=== PATIENT | male | born 1935 | race Caucasian/White ===

== ENCOUNTER → 2023-12-18 11:45 | Outpatient (REF) | payer MEDICARE, SELFPAY | LOC: ANHLAB 11:45 | PROVIDERS: PCP Internal Medicine; Visit Provider Plastic Surgery | DX: L82.1 Other seborrheic keratosis (principal) | CPT/HCPCS: 88305 ==

== ENCOUNTER 2024-06-23 13:43 | Inpatient (IN) | payer MEDICARE, SELFPAY ==
[2024-06-23] VITALS (11 sets, daily range): BP systolic 128–155; BP diastolic 61–72; PULSE 81–109; RESP 16–41; TEMP 36.2–36.6; O2SAT 92–99; BMI 41.5
--- NOTE | ~2024-06-23 | CT_ITS ---
EXAMINATION: CTA chest PE protocol DATE: 06/23/2024 16:24 INDICATION: Shortness of breath TECHNIQUE: Computed tomography (CT) pulmonary angiogram of the chest was performed with 100 mL Omnipa que-350 intravenous contrast. Additional 3D reconstructions utilizing coronal maximum intensity proje ction (MIP) were performed. Automated exposure control and iterative reconstruction technique were em ployed. The dose-length product was 996.00 mGy-cm. COMPARISON: None FINDINGS: No pulmonary embolism. Sensitivity decreased in the smaller subsegmental pulmonary arteries at the bi lateral lung bases due to moderate basilar respiratory motion artifact. No pneumonia, pulmonary edema , pleural effusion or pneumothorax. Heart size is normal. After squatting coronary artery calcific lo cation. Aortic valve repair. Thoracic aorta is normal in caliber with no dissection. No pathologicall y enlarged thoracic lymphadenopathy. Calcite gallstones at the dependent neck of the normal-appearing gallbladder. 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 IMPRESSION: 1. No pulmonary embolism or other acute cardiopulmonary disease. Sensitivity decreased in the subsegm ental pulmonary arteries at the bilateral lung bases due to respiratory motion. 2. Cholelithiasis. Reviewed, dictated and finalized at location A. IMPRESSION: 1. No pulmonary embolism or other acute cardiopulmonary disease. Sensitivity de creased in the subsegmental pulmonary arteries at the bilateral lung bases due to respiratory motion. 2. Cholelithiasis.
--- NOTE | ~2024-06-23 | XR_ITS ---
EXAMINATION: XR chest 1V portable DATE: 06/23/2024 14:20 INDICATION: Shortness of breath TECHNIQUE: frontal view of the chest was obtained. COMPARISON: None FINDINGS: The lungs are clear with no focal airspace opacities, pulmonary edema, pleural effusion or pneumothor ax. The cardiomediastinal silhouette is normal. IMPRESSION: 1. No acute cardiopulmonary disease. Reviewed, dictated and finalized at location A.
--- NOTE | ~2024-06-23 | NM_ITS ---
EXAMINATION: NM guilherme stress w perfusion DATE: 06/25/2024 09:58 INDICATION: Shortness of breath TECHNIQUE: Rest images were obtained following intravenous administration of 9.8 mCi Tc99m tetrofosmi n (Myoview). The patient was infused intravenously with Lexiscan (Regadenoson). Then, 32.3 mCi Tc99m tetrofosmin (Myoview) was administered intravenously, and stress images were obtained. Data was recon structed into short axis and horizontal and vertical long axis SPECT images. Gated SPECT images were also obtained. COMPARISON: None. FINDINGS: There is no definite reversible or fixed perfusion abnormality to suggest ischemia or infar ction. There is normal left ventricular chamber size, wall motion and ejection fraction. Left ventr icular ejection fraction measures 66%. IMPRESSION: 1. Normal myocardial perfusion at during stress. 2. Left ventricular ejection fraction measuring 66%. Reviewed, dictated and finalized at location A.
--- OUTSIDE RECORDS SUMMARY | 2024-06-23 13:48 | XMS_ITS | Data Portability ---
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 Role Phone SHAWNEE GREEN Referring Provider [phone] Assessment Encounter Date Assessment Date Assessment LastModified by Organization Details LastModified Time 05/15/2022 05/15/2022 Will continue with current therapy all questions have been answered diagnosis in assessment and plan been discussed follow-up in 4 months [email or web address] Not available 06/04/2022 21:31:05 09/18/2022 09/18/2022 Blood work ordered diagnosis in assessment plan been discussed and all questions have been answered he will follow-up with me in 4 months Not available 10/08/2022 11:29:23 10/03/2022 10/03/2022 Patient returns status post bilateral total knee. He is 23 years out on the right 8 on the left he has got good motion and very little pain and no very little way of symptoms he walks with a cane because of his balance. He is morbidly obese which is not helping. Basically his knees look great he is going to last him quite some time yet if he has any changes or problems he can call. I will see him back every year to for x-rays discussed. susie Not available 10/03/2022 11:12:09 11/23/2022 11/23/2022 Titration of diuretics discussed weight daily watch salt there has been some indiscretions there follow-up with me in 6 weeks discussed with him and his today records from hospital reviewed [email or web address] Not available 11/23/2022 21:27:22 01/15/2023 01/15/2023 Will continue current therapy diagnosis in the assessment and plan have been discussed all questions been answered he has been recommended to get up-to-date and stay up-to-date on flu COVID and RSV vaccinations follow-up 4 months [place] [id number] Not available 02/05/2023 19:52:44 Plan of Treatment Reminders Order Date Submit Date Provider Last Modified By Organization Details Last Modified Time Details Appointments None recorded . Lab glycohem oglobin, total, blood 023 09/19/19 23 [facility] (Lab), [address] [place], [address], 3 16:08:02 lipid panel, serum 023 09/19/19 [facility] (Lab), [address] [place], [address], 3 14:04:22 CMP, serum or plasma 023 09/19/19 23 [facility] (Lab), [address] [place], [address], 3 14:04:27 CBC w/ auto diff 023 09/19/[address] (Lab), [address] [place], [address], 3 13:55:31 Referral None recorded . Procedures None recorded . Surgeries None recorded . Imaging XR, knee 023 10/04/19 [email or web address] [facility], [address] [facility], [place], [address], 3 11:30:33 Medication Orders None recorded . Patient TargetsNo targets recorded. Patient InstructionsNo instructions recorded. Reason for Referral None Reported. Results Created Date Observation Date Name Description Value Unit Range Abnormal Flag Note LastModifiedBy Organization Detail LastModifiedTime 09/19/19 23 09/18/2022 CBC/C OMPLE TE BLD COUNT W/DIF F white blood cells 5.0 x10'3 /uL 4.2-10 .8 Not Available [facility] (Lab) [address] [place], [address], 09/18/2022 13:27:27 09/19/19 23 09/18/2022 CBC/C OMPLE TE BLD COUNT W/DIF F red blood cells 4.61 x10'6 /uL 4.10-5 .80 Not Available [facility] (Lab) [address] [place], [address], 09/18/2022 13:27:27 09/19/19 23 09/18/2022 CBC/C OMPLE TE BLD COUNT W/DIF F hemoglobin 13.2 g/dL 13.2-1 7.0 Not Available [facility] (Lab) [address] [place], [address], 09/18/2022 13:27:27 09/19/19 23 09/18/2022 CBC/C OMPLE TE BLD COUNT W/DIF F hematocrit 38.7 % 39.3-5 0.0 low Not Available [facility] (Lab) [address] [place], [address], 09/18/2022 13:27:27 09/19/19 23 09/18/2022 CBC/C OMPLE TE BLD COUNT W/DIF F mean red cell volume 83.9 fL 80.0-9 7.0 Not Available [facility] (Lab) [address] [place], [address], 09/18/2022 13:27:27 09/19/19 23 09/18/2022 CBC/C OMPLE TE BLD COUNT W/DIF F mean red cell hemoglobin 28.6 pg 27.0-3 3.0 Not Available [facility] (Lab) [address] [place], [address], 09/18/2022 13:27:27 09/19/19 23 09/18/2022 CBC/C OMPLE TE BLD COUNT W/DIF F mean RBC HGB concentratio n 34.1 g/dL 31.0-3 6.0 Not Available [facility] (Lab) [address] [place], [address], 09/18/2022 13:27:27 09/19/19 23 09/18/2022 CBC/C OMPLE TE BLD COUNT W/DIF F red cell distribution width 14.0 % 11.8-1 5.5 Not Available [facility] (Lab) [address] [place], [address], 09/18/2022 13:27:27 09/19/19 23 09/18/2022 CBC/C OMPLE TE BLD COUNT W/DIF F platelets 151 x10'3 /uL 150-40 0 Not Available [facility] (Lab) [address] [place], [address], 09/18/2022 13:27:27 09/19/19 23 09/18/2022 CBC/C OMPLE TE BLD COUNT W/DIF F mean platelet volume 10.9 fL 9.0-12 .4 Not Available [facility] (Lab) [address] [place], [address], 09/18/2022 13:27:27 09/19/19 23 09/18/2022 CBC/C OMPLE TE BLD COUNT W/DIF F neutrophils 56.3 % 39.0-7 2.0 Not Available [facility] (Lab) [address] [place], [address], 09/18/2022 13:27:27 09/19/19 23 09/18/2022 CBC/C OMPLE TE BLD COUNT W/DIF F lymphocytes 31.9 % 16.0-4 7.0 Not Available [facility] (Lab) [address] [place], [address], 09/18/2022 13:27:27 0809/18/2022 CBC/C OMPLE TE BLD COUNT W/DIF F monocytes 8.6 % 5.0-12 .0 Not Available [facility] (Lab) [address] [place], [address], 09/18/2022 13:27:27 09/19/19 23 09/18/2022 CBC/C OMPLE TE BLD COUNT W/DIF F eosinophils 2.2 % 1.0-7. 0 Not Available [facility] (Lab) [address] [place], [address], 09/18/2022 13:27:27 09/19/1909/18/2022 CBC/C OMPLE TE BLD COUNT W/DIF F basophils 0.4 % 0.0-2. 0 Not Available [facility] (Lab) [address] [place], [address], 09/18/2022 13:27:27 09/19/1909/18/2022 CBC/C OMPLE TE BLD COUNT W/DIF F immature granulocytes 0.6 % 0.00-0 .50 high Not Available [facility] (Lab) [address] [place], [address], 09/18/2022 13:27:27 09/19/19 23 09/18/2022 CBC/C OMPLE TE BLD COUNT W/DIF F neutrophils, absolute count 2.82 x10'3 /uL 1.5-8. 0 Not Available [facility] (Lab) [address] [place], [address], 09/18/2022 13:27:27 09/19/1909/18/2022 CBC/C OMPLE TE BLD COUNT W/DIF F lymphocytes, absolute count 1.60 x10'3 /uL 1.07-3 .43 Not Available [facility] (Lab) [address] [place], [address], 09/18/2022 13:27:27 08/14/20 23 09/18/2022 CBC/C OMPLE TE BLD COUNT W/DIF F monocytes, absolute count 0.43 x10'3 /uL 0.29-0 .99 Not Available [facility] (Lab) [address] [place], [address], 09/18/2022 13:27:27 09/19/19 23 09/18/2022 CBC/C OMPLE TE BLD COUNT W/DIF F eosinophils, absolute count 0.11 x10'3 /uL 0.02-0 .53 Not Available [facility] (Lab) [address] [place], [address], 09/18/2022 13:27:27 09/19/19 23 09/18/2022 CBC/C OMPLE TE BLD COUNT W/DIF F basophils, absolute count 0.02 x10'3 /uL 0.01-0 .08 Not Available [facility] (Lab) [address] [place], [address], 09/18/2022 13:27:27 09/19/19 23 09/18/2022 CBC/C OMPLE TE BLD COUNT W/DIF F immature granulocytes ,absolute 0.03 x10'3 /uL 0.00-0 .05 Not Available [facility] (Lab) [address] [place], [address], 09/18/2022 13:27:27 09/19/19 23 09/18/2022 CBC/C OMPLE TE BLD COUNT W/DIF F nucleated red blood cells 0.0 % -0 Not Available [facility] (Lab) [address] [place], [address], 09/18/2022 13:27:27 09/19/19 23 09/18/2022 CBC/C OMPLE TE BLD COUNT W/DIF F NRBC# 0.00 x10'3 /uL Not Available [facility] (Lab) [address] [place], [address], 09/18/2022 13:27:27 09/19/19 23 09/18/2022 LIPID PANEL cholesterol 158 mg/dL 140-19 9 NIH CYNTHIA NSUS RECOM MENDA TION FOR AJAY STERO L: ADULT CHILD LOW RISK: <200 <170 BORDE RLINE : <200- 239 ----- HIGH RISK: >240 >200 Not Available [facility] (Lab) [address] [place], [address], 09/18/2022 14:04:22 09/19/19 23 09/18/2022 LIPID PANEL triglyceride s 230 mg/dL 0-150 high NIH CYNTHIA NSUS REPOR T RECOM MENDA TION FOR TRIGL YCERI TALON: ADULT CHILD LOW RISK: <150 ----- BODER LINE: 150-1 99 ----- HIGH RISK: >200 ----- Not Available [facility] (Lab) [address] [place], [address], 09/18/2022 14:04:22 09/19/19 23 09/18/2022 LIPID PANEL HDL cholesterol 30 mg/dL 40- low Not Available [facility] (Lab) [address] [place], [address], 09/18/2022 14:04:22 09/19/19 23 09/18/2022 LIPID PANEL LDL cholesterol, calculated 82 mg/dL 0-130 NIH CYNTHIA NSUS REPOR T RECOM MENDA TIONS FOR LDL: ADULT CHILD LOW RISK <130 <110 (OPTI MAL LDL) <100 ----- BORDE RLINE : 130-1 59 ----- HIGH RISK: >160 >130 A TRIGL YCERI DE RESUL T >400 INVAL IDATE S THE CALCU LATIO N FOR LDL FRACT IONAT ION - THE LDL RESUL T WILL NOT BE REPOR CEDRIC. Not Available [facility] (Lab) [address] [place], [address], 09/18/2022 14:04:22 09/19/19 23 09/18/2022 COMPR EHENS ANNIKA METAB OLIC PANEL sodium 138 mmol/ L 137-14 5 Not Available [facility] (Lab) [address] [place], [address], 09/18/2022 14:04:27 09/19/19 23 09/18/2022 COMPR EHENS ANNIKA METAB OLIC PANEL potassium 3.7 mmol/ L 3.5-5. 1 Not Available [facility] (Lab) [address] [place], [address], 09/18/2022 14:04:27 09/19/19 23 09/18/2022 COMPR EHENS ANNIKA METAB OLIC PANEL chloride 104 mmol/ L 98-107 Not Available [facility] (Lab) [address] [place], [address], 09/18/2022 14:04:27 09/19/19 23 09/18/2022 COMPR EHENS ANNIKA METAB OLIC PANEL carbon dioxide 27 mmol/ L 22-30 Not Available [facility] (Lab) [address] [place], [address], 09/18/2022 14:04:27 09/19/19 23 09/18/2022 COMPR EHENS ANNIKA METAB OLIC PANEL anion gap 10.7 mmol/ L 14-22 low Not Available [facility] (Lab) [address] [place], [address], 09/18/2022 14:04:27 09/19/19 23 09/18/2022 COMPR EHENS ANNIKA METAB OLIC PANEL glucose 131 mg/dL 70-99 high Not Available [facility] (Lab) [address] [place], [address], 09/18/2022 14:04:27 09/19/19 23 09/18/2022 COMPR EHENS ANNIKA METAB OLIC PANEL BUN 10 mg/dL 8-19 Not Available [facility] (Lab) [address] [place], [address], 09/18/2022 14:04:27 09/19/19 23 09/18/2022 COMPR EHENS ANNIKA METAB OLIC PANEL creatinine 0.89 mg/dL 0.66-1 .25 Not Available [facility] (Lab) [address] [place], [address], 09/18/2022 14:04:27 09/19/19 23 09/18/2022 COMPR EHENS ANNIKA METAB OLIC PANEL GFR >60 Refer ence Range : [place] ge GFR Healt hy Adult : >60 mL/mi n/1.7 3 m2 Chron ic Kidne y Disea se: 15-60 mL/mi n/1.7 3 m2 Kidne y Failu re: <15/m L/min /1.73 m2 www.n iddk. nih.g ov The MDRD study equat ion has not been valid ated in child geo <18 years of age; pregn ant women ; the elder ly >85 years of age; or in some racia l or ethni c subgr oups, such as Hisroland nics. Outsi de the valid ated maria ines eters , estim ated GFR is less accur ate, requi ring clini polo judgm ent on a case- by-ca se basis . Clini polo inter preta tion for other races and ages must be made by the clini helene. The MDRD study equat ion has not been valid ated for the evalu ation of serum creat inine relat ed to nutri darius l statu s or medic ation usage . For perso ns <18 years of age, a pedia tric GFR calcu lator is avail able on the F websi te: https ://oj w.rakan lacy.o rg/pr ofess ional s/kdo qi/gf r_cal culat or Not Available [facility] (Lab) [address] [place], [address], 09/18/2022 14:04:27 09/19/19 23 09/18/2022 COMPR EHENS ANNIKA METAB OLIC PANEL alkaline phosphatase 49 U/L 38-126 Not Available [facility] (Lab) [address] [place], [address], 09/18/2022 14:04:27 09/19/19 23 09/18/2022 COMPR EHENS ANNIKA METAB OLIC PANEL alanine aminotransfe rase 37 U/L 0-50 Not Available [facility] (Lab) [address] [place], [address], 09/18/2022 14:04:27 09/19/19 23 09/18/2022 COMPR EHENS ANNIKA METAB OLIC PANEL aspartate aminotransfe rase 35 U/L 15-46 Not Available [facility] (Lab) [address] [place], [address], 09/18/2022 14:04:27 09/19/19 23 09/18/2022 COMPR EHENS ANNIKA METAB OLIC PANEL bilirubin, total 0.60 mg/dL 0.20-1 .30 Not Available [facility] (Lab) [address] [place], [address], 09/18/2022 14:04:27 09/19/19 23 09/18/2022 COMPR EHENS ANNIKA METAB OLIC PANEL calcium 8.5 mg/dL 8.4-10 .2 Not Available [facility] (Lab) [address] [place], [address], 09/18/2022 14:04:27 09/19/19 23 09/18/2022 COMPR EHENS ANNIKA METAB OLIC PANEL total protein 6.8 g/dL 6.3-8. 2 Not Available [facility] (Lab) [address] [place], [address], 09/18/2022 14:04:27 09/19/19 23 09/18/2022 COMPR EHENS ANNIKA METAB OLIC PANEL albumin 4.1 g/dL 3.0-4. 4 Not Available [facility] (Lab) [address] [place], [address], 09/18/2022 14:04:27 09/19/19 23 09/18/2022 COMPR EHENS ANNIKA METAB OLIC PANEL globulin 2.7 g/dL 2.6-4. 2 Not Available [facility] (Lab) [address] [place], [address], 09/18/2022 14:04:27 09/19/19 23 09/18/2022 COMPR EHENS ANNIKA METAB OLIC PANEL A/G ratio 1.5 ratio 1.0-2. 0 Not Available [facility] (Lab) [address] [place], [address], 09/18/2022 14:04:27 09/19/19 23 09/18/2022 HEMOG LOBIN A1C HA1C 6.5 % 4.0-6. 0 high Diabe berhane Scree cass Crite oksana: <5.7% Consi stent with absen ce of diabe berhane 5.7-6 .4% Consi stent with incre ased risk for diabe berhane (pred iabet es) >OR=6 .5% Consi stent with diabe berhane REFER ENCE: Diabe berhane Care 2016, 39(Ceja ppl.1 ):s13 -s22 Not Available [facility] (Lab) [address] [place], [address], 09/18/2022 16:08:02 09/02/19 23 09/01/2022 US, echoc ardio gram No observ ation record ed. [email or web address] [facility] [address], [place], [address], 09/19/2022 16:35:35 10/04/19 23 XR, knee No observ ation record ed. [email or web address] [facility] [address], [place], [address], 10/03/2022 11:12:22 Result Notes None recorded. Problems Name Problem SNOMED Code Status Onset Date Resolution Date Notes Provider Name and Address Organization Details Recorded Time Pain of bilatera l knee joints 49402584741 4104 Active 2022 WILLIE Kaur, [facility] Conjecta 3 10:59:12 Heart failure with normal ejection fraction 602636332 Active 2022 Shawnee Green MD [address] [place] [address], [facility] [address], [place], [address] , [facility] Conjecta 3 21:26:49 Edema of lower extremit y 006065330 Active Not Available [facility] 3 08:36:15 History of right total knee replacem ent 78168094449 Active 2020 Not Available [facility] 3 08:36:15 History of left total knee replacem ent 95977401292 Active 2020 Not Available [facility] 3 08:36:15 Chronic obstruct annika pulmonar y disease 69879061 Active Not Available [facility] 3 08:36:15 Standard chest X-ray abnormal 941459071 Active 2021 Not Available [facility] 3 08:36:15 Angiodys plasia of colon 409563267 Active 2019 colonosc opy 2018 Not Available [facility] 3 08:36:15 Localize d, 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 015667913 Active Not Available [facility] 3 08:36:15 Morbid obesity 136088459 Active 2020 Not Available [facility] 3 08:36:15 Osteoart hritis of knee 516732046 Active Not Available [facility] 3 08:36:15 Dyspnea 823548660 Active Not Available [facility] 3 08:36:16 Low back pain 977375238 Active Not Available [facility] 3 08:36:16 Knee pain Active Not Available [facility] 3 08:36:16 Type 2 diabetes mellitus without complica tion 625245730 Active 2021 Not Available [facility] 3 08:36:16 Trochant naomi bursitis of left hip 25894284372 9103 Active 2022 Not Available [facility] 3 08:36:16 Osteoart hritis 925148295 Active Not Available [facility] 3 08:36:16 Obesity 518883432 Active Not Available [facility] 3 08:36:16 Coronary atherosc lerosis 302597048 Active Not Available [facility] 3 08:36:16 Cough 97111522 Active 2021 Not Available [facility] 3 08:36:16 Coronary arterios clerosis 61658072 Active 2020 Not Available [facility] 3 08:36:16 Hyperlip idemia 34226277 Active Not Available [facility] 3 08:36:16 Occult blood detected in feces 67162469 Active Not Available [facility] 3 08:36:16 Essentia l hyperten janeth 06876059 Active Not Available [facility] 3 08:36:16 Supraven tricular tachycar ju 0724799 Active history of Not Available [facility] 3 08:36:16 Sleep apnea 77198320 Completed Not Available [facility] 3 04:50:02 Hypersom angus 62244216 Active Not Available [facility] 3 08:36:16 Obstruct annika sleep apnea syndrome 47938863 Active Not Available [facility] 3 08:36:16 Aortic valve disorder 1808338 Active Not Available [facility] 3 08:36:16 Skin lesion 74100820 Active Not Available [facility] 3 08:36:16 Notes:eye exam November 2016 Problem Notes None recorded. Procedures Surgical History Date Name Laterality Status Provider Name and Address Organization Details Recorded Time 04/21/19 18 Colonoscopy completed Not Available [facility] 04/05/2022 04:42:13 01/21/20 15 Total knee arthroplasty completed Not Available [facility] 04/05/2022 04:42:13 Total knee arthroplasty completed Not Available [facility] 04/05/2022 04:42:13 Cataract Surgery completed Not Available [facility] 04/05/2022 04:42:13 Colonoscopy completed Not Available [facility] 04/05/2022 04:42:13 Cardiac Stent Placement completed Not Available [facility] 04/05/2022 04:42:13 Cardiovascular Surgery completed Not Available [facility] 04/05/2022 04:42:13 Imaging Results Imaging Date Name Status LastModified by Organization Details LastModified Time 09/01/2022 US, echocardiogram completed [email or web address] [facility] [address], [place], [address], 09/19/2022 16:35:35 10/03/2022 XR, knee completed [email or web address] [facility] [address], [place], [address], 10/03/2022 11:12:22 Procedure Notes None recorded. Medical Equipment None Reported. Allergies No known drug allergies Medications Name Sig Start Date Stop Date Status Note LastModified by Organization Details LastModified Time verapamil ER (SR) 120 mg tablet,ex tended release TAKE 1 TABLET BY MOUTH NIGHTLY active Not Available Not Available No t Available penicilli n V potassium 250 mg tablet active Not Available Not Available Not Available amoxicill in 500 mg capsule 06/19 completed Not Available Not Available Not Available furosemid e 40 mg tablet TAKE 1 TABLET BY MOUTH EVERY DAY active Not Available Not Available No t Available carvedilo l 25 mg tablet Take 1 tablet twice a day by oral route for 30 days. 03/03 completed Not Available Not Available Not Available carvedilo l 6.25 mg tablet Take 1 tablet twice a day by oral route for 90 days. 03/03 completed Not Available Not Available Not Available prednison e 10 mg tablet TAKE 1 TABLET BY MOUTH 3 TIMES A DAY X 3 DAYS, 1 TWICE DAILY X 2 DAYS, 1 TAB DAILY X 1 DAY 05/15 completed Not Available Not Available Not Available doxycycli ne hyclate 100 mg capsule Take 1 capsule twice a day by oral route for 10 days. active Not Available Not Available No t Available carvedilo l 12.5 mg tablet TAKE 1 TABLET BY MOUTH TWICE A DAY active Not Available Not Available No t Available atorvasta tin 10 mg tablet TAKE 1 TABLET BY MOUTH EVERY DAY 2023 active Not Available Not Available Not Avai lable azithromy rosalba 250 mg tablet TAKE 2 TABLETS BY MOUTH TODAY, THEN TAKE 1 TABLET DAILY FOR 4 DAYS DIRECTED active Not Available Not Available No t Available aspirin 325 mg tablet Take 1 tablet every day by oral route. 03/30 completed Not Available Not Available Not Available tizanidin e 4 mg tablet Take 1 tablet every day by oral route at bedtime. active Not Available Not Available No t Available Claritin 10 mg tablet Take 1 tablet every day by oral route. 2014 active OTC Not Available Not Available Not Avai lable isosorbid e mononitra te ER 30 mg tablet,ex tended release 24 hr 07/18 completed Not Available Not Available Not Available acetamino phen 300 mg-codein e 30 mg tablet 01/16 completed Not Available Not Available Not Available clopidogr el 75 mg tablet Take 1 tablet every day by oral route. 04/06 completed Not Available Not Available Not Available ciproflox acin 500 mg tablet active Not Available Not Available No t Available aspirin 81 mg tablet,de layed release TAKE 1 TABLET BY MOUTH EVERY DAY active Not Available Not Available No t Available prednison e 10 mg tablets in a dose pack Take 1 tab by mouth, 3 times a day for 3 daysTake 1 tab by mouth 2 times a day for 2 daysTake 1 tab by mouth once a day for 1 day 05/15 completed Not Available Not Available Not Available Kenalog 10 mg/mL suspensio n for injection In office injectio n administ ered by the provider 05/15 completed NDC: [id number] Not Available Not Available Not Available hydrocodo ne 7.5 mg-acetam inophen 325 mg tablet 04/15 completed Not Available Not Available Not Available cephalexi n 500 mg capsule active Not Available Not Available Not Available doxazosin 4 mg tablet TAKE 1 TABLET BY MOUTH EVERY DAY active Not Available Not Available No t Available verapamil ER (SR) 240 mg tablet,ex tended release TAKE ONE TABLET BY MOUTH ONE TIME DAILY 12/27 completed Not Available Not Available Not Available etodolac 400 mg tablet Take 1 tablet twice a day by oral route. active Not Available Not Available No t Available diclofena c sodium 50 mg tablet,de layed release 04/15 completed Not Available Not Available Not Available ergocalci ferol (vitamin D2) 1,250 mcg (50,000 unit) capsule TAKE 1 CAPSULE BY MOUTH ONCE WEEKLY active Not Available Not Available No t Available methylpre dnisolone 4 mg tablets in a dose pack TAKE 6 TABLETS ON DAY 1 DIRECTED ON PACKAGE AND DECREASE BY 1 TAB EACH DAY FOR A TOTAL OF 6 DAYS active Not Available Not Available No t Available finasteri de 5 mg tablet TAKE 1 TABLET BY MOUTH EVERY DAY active Not Available Not Available No t Available verapamil ER 240 mg 24 hr capsule,e xtended release active Not Available Not Available Not Available Aspir-Tri n 325 mg tablet,de layed release Take 1 tablet every day by oral route. 06/02 completed duplicat e Not Available Not Available Not Available Vitamin D 50,000 unit capsule Take 1 capsule every week by oral route. 05/15 completed Not Available Not Available Not Available Vitamin B12 500 mcg tablet Take 4 tablets every day by oral route with meals. 2020 active chewable Not Available Not Available Not Avai lable Vitamin D3 25 mcg (1,000 unit) capsule Take by oral route. 06/02 completed pt taking 50,000 units only Not Available Not Available Not Available tizanidin e 4 mg capsule 1 HS 02/13 completed Not Available Not Available Not Available Adacel (Tdap Adolesn/A dult)(PF) 2Lf-(2.5- 5-3-5mcg) -5 Lf/0.5 mL IM susp 01/13 completed Not Available Not Available Not Available Co Q-10 2015 active Not Available Not Available Not Avai lable aspirin (bulk) 81 mg daily 04/15 completed Not Available Not Available Not Available MoviPrep 100 gram-7.5 gram-2.69 1 gram oral powder packet active Not Available Not Available Not Available B12 1000 MG DAILY 03/03 completed Not Available Not Available Not Available loratadin e 10 mg capsule daily 2012 active Not Available Not Available Not Avai lable Healthy Eyes 2020 active Not Available Not Available Not Avai lable krill oil one capsule by mouth daily 04/15 completed Not Available Not Available Not Available Xarelto 10 mg tablet 04/15 completed Not Available Not Available Not Available ropivacai ne (PF) 5 mg/mL (0.5 %) injection solution Take 20 mg by injectio n route. 05/15 completed [facility] [address] 05-06 Not Available Not Available Not Available Fluvirin 7470-2638 45 mcg (15 mcg x 3)/0.5 mL intramusc ular suspensio n active Not Available Not Available Not Available PreserVis ion AREDS-2 06/02 completed pt changed to healthy eyes Not Available Not Available Not Available Fluzone 5833-6617 45 mcg (15 mcg x 3)/0.5 mL intramusc ular suspensio n active Not Available Not Available Not Available Fluzone Quad 7831-1572 (PF) 60 mcg (15 mcg x 4)/0.5 mL IM syringe active Not Available Not Available Not Available Fluzone High-Dose 5860-5259 (PF) 180 mcg/0.5 mL intramusc ular syringe 12/27 completed Not Available Not Available Not Available Fluzone High-Dose 8474-5901 (PF) 180 mcg/0.5 mL intramusc ular syringe 03/02 completed Not Available Not Available Not Available Shingrix (PF) 50 mcg/0.5 mL intramusc ular suspensio n, kit 08/03 completed Not Available Not Available Not Available Fluzone High-Dose 1442-4312 (PF) 180 mcg/0.5 mL intramusc ular syringe 01/11 completed Not Available Not Available Not Available Fluzone High-Dose (PF) 180 mcg/0.5 mL intramusc ular syringe 01/13 completed Not Available Not Available Not Available Fluad 65yr up(PF)45 mcg(15 mcgx3)/0. 5 mL intramusc ular syringe 03/02 completed Not Available Not Available Not Available aspirin 81 mg capsule Take 1 capsule every day by oral route. 09/18 completed Not Available Not Available Not Available Vitals Date Recorded Body height Body mass index (BMI) Body weight Body temperature Heart rate Systolic blood pressure Diastolic blood pressure Provider Name and Address Organization Details Last Updated DateTime 3 172.72 cm 45.5 kg/m2 799235. 12 g 98 [degF] 93 /min 124 mm[Hg] 84 mm[Hg] Katherin welsh RN [facility] [employer] [facility] 3 11:15:52 Date Recorded Body height Body mass index (BMI) Body weight Body temperature Heart rate Systolic blood pressure Diastolic blood pressure Provider Name and Address Organization Details Last Updated DateTime 3 172.72 cm 45.6 kg/m2 100325. 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 53 g 97.2 [degF] 68 /min 134 mm[Hg] 66 mm[Hg] GERBER Rosa [place] [employer] [facility] [employer] [facility] 3 14:31:18 Date Recorded Body height Body mass index (BMI) Body weight Body temperature Heart rate Systolic blood pressure Diastolic blood pressure Provider Name and Address Organization Details Last Updated DateTime 3 170.18 cm 45.9 kg/m2 591405. 56 g 97.8 [degF] 65 /min 126 mm[Hg] 72 mm[Hg] GERBER Rosa [place] [employer] [facility] [employer] [facility] 3 11:19:06 Social History Question Answer Notes LastModified by Organization Details LastModified Time Tobacco Smoking Status Never Smoker Not Available [employer] 04/05/2022 04:41:40 Do You Have An Advance Directive? No MIGRATION.0301 [id number] Information not available 04/05/2022 Are You Blind Or Do You Have Difficulty Seeing? No MIGRATION.030 350723 Information not available 04/05/2022 What Is Your Level Of Caffeine Consumption? None MIGRATION.030 546433 Information not available 04/05/2022 How Much Tobacco Do You Chew? None MIGRATION.030 393827 Information not available 04/05/2022 In The 14 Days Before Symptom Onset, Have You Had Close Contact With A Laboratory-conf irmed COVID-19 While That Case Was Ill? No MIGRATION.030 325714 Information not available 04/05/2022 In The 14 Days Before Symptom Onset, Have You Had Close Contact With A Person Who Is Under Investigation For COVID-19 While That Person Was Ill? No MIGRATION.030 919129 Information not available 04/05/2022 Are You Deaf Or Do You Have Serious Difficulty Hearing? No MIGRATION.030 970637 Information not available 04/05/2022 What Type Of Diet Are You Following? REGULAR MIGRATION.030 315060 Information not available 04/05/2022 Which Illicit Or Recreational Drugs Have You Used? None MIGRATION.030 153355 Information not available 04/05/2022 What Is The Highest Grade Or Level Of School You Have Completed Or The Highest Degree You Have Received? [id number] MIGRATION.030 744379 Information not available 04/05/2022 Have There Been Any Changes To Your Family Or Social Situation? No MIGRATION.030 130748 Information not available 04/05/2022 What Is The Fluoride Status Of Your Home? Unknown MIGRATION.030 556597 Information not available 04/05/2022 Are There Any Guns Present In Your Home? Yes MIGRATION.030 674552 Information not available 04/05/2022 Do You Use Insect Repellent Routinely? No MIGRATION.030 108147 Information not available 04/05/2022 Where Do You Live? 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 Yes MIGRATION.030 620855 Information not available 04/05/2022 What Was The Date Of Your Most Recent Tobacco Screening? 01/15/2023 [email or web address] Information not available 01/15/2023 Have You Ever Been Counseled For Unhealthy Alcohol Use? No MIGRATION.0301 500998 Information not available 04/05/2022 Do You Have Any Pets? No MIGRATION.0301 231500 Information not available 04/05/2022 What Is Your Relationship Status? MIGRATION.0301 486820 Information not available 04/05/2022 Do You Use Your Seat Belt Or Car Seat Routinely? Yes MIGRATION.0301 817806 Information not available 04/05/2022 Do You Have Smoke And Carbon Monoxide Detectors In Your Home? Yes MIGRATION.0301 682066 Information not available 04/05/2022 At What Age Did You Start Smoking Tobacco? 18 MIGRATION.0301 595185 Information not available 04/05/2022 Are You Passively Exposed To Smoke? No MIGRATION.0301 966437 Information not available 04/05/2022 Are There Any Smokers In Your House? No MIGRATION.0301 214777 Information not available 04/05/2022 How Much Tobacco Do You Smoke? No MIGRATION.0301 095047 Information not available 04/05/2022 What Types Of Sporting Activities Do You Participate In? None MIGRATION.0301 821905 Information not available 04/05/2022 Do You Use Sunscreen Routinely? No MIGRATION.0301 203269 Information not available 04/05/2022 Has Tobacco Cessation Counseling Been Provided? No MIGRATION.0301 346078 Information not available 04/05/2022 How Many Years Have You Smoked Tobacco? 25 MIGRATION.0301 529800 Information not available 04/05/2022 Have You Recently Traveled Abroad? No MIGRATION.0301 587931 Information not available 04/05/2022 Do You Have Difficulty Walking Or Climbing Stairs? Yes Always Uses Assistive Devices MIGRATION.0301 491415 Information not available 04/05/2022 Do You Have Any Dietary Restrictions? No MIGRATION.0301 173754 Information not available 04/05/2022 Sex: Male Functional Status Question Answer Note LastModified by Organizat ion Details LastModified Time Do you use any illicit or recreational drugs? No MIGRATION.941861 5948 Information not available 04/05/2022 What is your level of alcohol consumption? None MIGRATION.095696 2258 Information not available 04/05/2022 Do you or have you ever used smokeless tobacco? Never used smokeless tobacco MIGRATION.173136 6566 Information not available 04/05/2022 Do you have transportation difficulties? No MIGRATION.271342 2570 Information not available 04/05/2022 Are you able to walk? YESLIMIT MIGRATION.817411 1733 Information not available 04/05/2022 Do you have difficulty doing errands alone? No MIGRATION.178734 0683 Information not available 04/05/2022 Are you able to care for yourself? Yes MIGRATION.031585 1642 Information not available 04/05/2022 What is your occupation? retired MIGRATION.036681 4739 Information not available 04/05/2022 Do you have difficulty dressing or bathing? No MIGRATION.393472 8298 Information not available 04/05/2022 Do you or have you ever used e-cigarettes or vape? Never used electronic cigarettes MIGRATION.977392 8170 Information not available 04/05/2022 What is your exercise level? Occasional MIGRATION.029010 4181 Information not available 04/05/2022 Mental Status Question Answer Note LastModified by Organizat ion Details LastModified Time Do you feel stressed (tense, restless, nervous, or anxious, or unable to sleep at night)? [id number] MIGRATION.[id number] 26 Information not available 04/05/2022 Do you have difficulty concentrating, remembering or making decisions? No MIGRATION.08207628 26 Information not available 04/05/2022 Family History Relationship Description Onset Age of this Age Resolved Age Notes LastModified by Organization Details LastModified Time Mother Old-age MIGRATION.638 [id number] Not available 04/05/2022 04:42:19 Mother Diabetes mellitus MIGRATION.744 0726225 Not available 04/05/2022 04:42:19 Sister Family history of malignant neoplasm MIGRATION.965 [id number] Not available 04/05/2022 04:42:19 Unspecified Relation Heart disease MIGRATION.964 [id number] Not available 04/05/2022 04:42:19 Unspecified Relation Hypertensive disorder MIGRATION.509 [id number] Not available 04/05/2022 04:42:20 Medical History Condition Response NERVE DISEASE N BLINDNESS N RHEUMATIC FEVER N KIDNEY STONES N BLADDER PROBLEMS N MRSA N OTHER # 1 N POLIO N LUNG DISEASE/DISORDER N COPD N RADIATION / CHEMOTHERAPY N Other # 2 N BLOOD DISEASES N EAR OR HEARING PROBLEMS N MUMPS N DEPRESSION (INCLUDING POST ) N BOWEL PROBLEMS N STROKE/TIA N ULCERS N BENIGN PROSTATIC HYPERPLASIA N MEASLES N MYOCARDIAL INFARCTION N OBESITY N GERD/NAUSEA N ANEURYSM N URINARY/BLADDER/KIDNEY PROBLEMS N CORONARY ARTERY DISEASE (CAD) N ADDICTION CONCERNS N Impotence N ENDOMETRIOSIS N USE OF BLOOD THINNERS Y SKIN PROBLEMS N GASTROINTESTINAL DISORDER N PERIPHERAL VASCULAR DISEASE N MUSCLE,JOINT OR BONE PROBLEMS N GASTROINTESTINAL BLEEDING N BLOOD CLOTS N ASTHMA N CATARACTS N ERECTILE DYSFUNCTION N VARICOSITIES N GI PROBLEMS N Low Testosterone N INFERTILITY N AIDS/HIV N CHEMOTHERAPY / RADIATION N LIVER DISEASE N MALE HYPOGONADISM N HYPERTENSION Y Deficiency N TOURETTE'S N ANXIETY DISORDER N BLOOD TRANSFUSION N ANEMIA/BLOOD DISORDER N CHRONIC EAR INFECTIONS N BRONCHITIS N TUBERCULOSIS N GLAUCOMA N FOOT PROBLEM N DIVERTICULITIS N SLEEP APNEA Y CHICKENPOX N INFECTIOUS DISEASE N PROSTATE N HEART ARRHYTHMIA Y INSOMNIA N HIGH CHOLESTEROL / HYPERLIPIDEMIA Y EYE PROBLEMS N HYPERTHYROIDISM N EDEMA N CHRONIC PAIN SYNDROME N HYPOTHYROIDISM N CAROTID BLOCKAGE N CONSTIPATION N BACK / NECK PROBLEMS N HAVE YOU BEEN HOSPITALIZED OR SEEN IN [facility] IN THE PAST YEAR ? N ATHEROSCLEROSIS N BREAST PROBLEMS N DIALYSIS N ECZEMA N OSTEOPOROSIS N ARTHRITIS Y APPENDICITIS N DIABETES, TYPE N BAD TEETH N ENT N HEARTBURN / REFLUX N AUTISM SPECTRUM DISORDER (ASD) N HEPATITIS / LIVER DISEASE N GOUT N SLEEP DISORDER N ALZHEIMER'S DISEASE N Brain Problems N DEMENTIA N HERPES N SEIZURES/EPILEPSY N HEADACHES/MIGRAINES N VASCULAR DISEASE N PACEMAKER N Blood Disorder N DIZZINESS N HEART DISEASE/HEART PROBLEMS Y KIDNEY DISEASE N MULTIPLE SCLEROSIS N CANCER: SPECIFY Y CARDIAC ARRHYTHMIA Y ATRIAL FIBRILLATION N Gall Stones N PULMONARY EMBOLISM N AUTOIMMUNE DISEASE N Immunizations Vaccine Type Date Status Note Provider Nam e and Address Organization Details Recorded Time Influenza, high-dose, quadrivalent, PF 2 completed Not Available [facility] 08:36:16 COVID-19, mRNA, LNP-S, PF, 10 mcg/0.2 mL dose, rolo-sucrose 2 completed Not Available [facility] 09/19/2022 08:36:16 COVID-19, mRNA, LNP-S, PF, 10 mcg/0.2 mL dose, rolo-sucrose 1 completed Not Available [facility] 09/19/2022 08:36:16 Influenza, split virus, trivalent, preservative 0 completed Not Available [facility] 09/19/2022 08:36:16 zoster, unspecified formulation 0 completed Not Available [facility] 09/19/2022 08:36:16 Influenza, split virus, quadrivalent, preservative 9 completed Not Available [facility] 09/19/2022 08:36:16 zoster, unspecified formulation 9 completed Not Available [facility] 09/19/2022 08:36:16 Tdap 9 completed Not Available [facility] 09/19/2022 08:36:16 Influenza, high-dose, trivalent, PF 8 completed Not Available [facility] 09/19/2022 08:36:16 Influenza, high-dose, trivalent, PF 6 completed Not Available [facility] 09/19/2022 08:36:16 Influenza, split virus, trivalent, PF 5 completed Not Available [facility] 09/19/2022 08:36:16 Influenza, split virus, trivalent, PF 3 completed Not Available [facility] 09/19/2022 08:36:16 COVID-19, mRNA, LNP-S, PF, 30 mcg/0.3 mL dose 1 completed Not Available [facility] 09/19/2022 08:36:16 COVID-19, mRNA, LNP-S, PF, 30 mcg/0.3 mL dose 1 completed Not Available [facility] 09/19/2022 08:36:16 pneumococcal polysaccharide PPV23 2 completed Not Available [facility] 09/19/2022 08:36:16 Pneumococcal conjugate PCV 13 6 completed Not Available [facility] 09/19/2022 08:36:16 Past Encounters Encounter ID Performer Location Encounter Start Date Encounter Closed Date Diagnosis/Indication Diagnosis SNOMED-CT Code Diagnosis ICD10 Code Diagnosis Note [id number] Shawnee Green MD [facility] Internal Med [facility] 15 20[address] [facility], [address] [address] 06/02/2020 00:00:00 06/27/2020 15:06:20 [id number] Shawnee Green MD [facility] Internal Med [facility] 15 [address] [facility] [address] [address] 08/25/2020 00:00:00 08/28/2020 13:08:24 [id number] Nishant Owusu MD [facility] [address] [place] [address] 10/05/2020 00:00:00 10/05/2020 10:01:20 [id number] Shawnee Green MD [facility] Internal Med [facility] 15 2043 [facility] [address] [address] 12/15/2020 00:00:00 12/15/2020 21:21:10 [id number] Shawnee Green MD [facility] Internal Med [facility] 15 2043 [facility] [address] [address] 04/06/2021 00:00:00 04/24/2021 11:50:55 [id number] Shawnee Green MD [facility] Internal Med [facility] 15 [address] [facility] [address] [address] 04/13/2021 00:00:00 05/07/2021 12:15:39 [id number] Shawnee Green MD [facility] Internal Med [facility] 15 20[address] [facility] [address] [address] 07/06/2021 00:00:00 07/07/2021 08:04:01 [id number] Shawnee Green MD [facility] Internal Med [facility] 15 20[address] [facility] [address] [address] 09/19/2021 00:00:00 09/20/2021 21:11:22 [id number] Shawnee Green MD [facility] Internal Med [facility] 15 [address] [facility] [address] [address] 01/16/2022 00:00:00 01/16/2022 12:46:16 [id number] Nishant Owusu MD [facility] [address] [place], [facility] 03/30/2022 00:00:00 03/30/2022 11:40:02 [id number] Shawnee Green MD [facility] Internal Med [facility] [address] [facility], [address] [address] 05/15/2022 10:47:12 05/15/2022 12:39:12 Type 2 diabetes mellitus without complication 995671232 E11.9 Osteoarthr itis of knee 685635633 M17.9 Morbid obesity 731559820 E66.01 Hyperlipidemia 21543649 E78.5 Essential hypertension 35272347 I10 Coronary atherosclerosis 169387073 I25.10 Aortic valve disorder 87 95163 I35.9 [id number] Shawnee Green MD [facility] Internal Med [facility] [address] [address] 09/18/2022 10:55:57 09/18/2022 12:09:47 Essential hypertension 80773501 I10 Type 2 ju betes mellitus without complication 302127499 E11.9 Coronary arteriosclerosis 33951623 I25.10 Angiodyspl pablo of colon 535106168 K55.20 Hyperlipidemia 06792151 E78.5 [id number] Nishant Owusu MD [facility] [address] [place] [address] 10/03/2022 10:53:26 10/03/2022 11:30:32 History of right total knee replacement 2466600271 742550 Z96.651 History of left total knee replacement 1569697273 211666 Z96.652 Pain of bi lateral knee joints 2130875848 59955 M25.561 M25.917 [id number] Shawnee Green MD S[facility] Internal Med Benjamin ciera [address] [facility] , [facility] [place] [address] 11/23/2022 14:18:23 11/23/2022 15:11:22 Heart failure with normal ejection fraction 531311660 I50.31 Coronary atherosclerosis 556228453 I25.10 Essential hypertension 78481258 I10 [id number] Shawnee Green MD [facility] Internal Med [facility] [address] [facility], [address] [place] [address] 01/15/2023 10:27:45 01/15/2023 12:19:56 Essential hypertension 72442700 I10 Heart fail ure with normal ejection fraction 673760871 I50.31 Hyperlipidemia 06150799 E78.5 Morbid obesity 115635319 E66.01 Type 2 ju betes mellitus without complication 096530126 E11.9 Coronary atherosclerosis 075484257 I25.10 Angiodyspl pablo of colon 639491616 K55.20 Health Concerns Section Related Observation LastModified by Organization Detai ls LastModified Time None Recorded Concern Status LastModified by Organization Details LastModified Time None Recorded Advance Directives Directive N: Payers Encounter Date Sequence Insurance Name Policy Number Policy Treviño Covered Member ID Treviño Member ID Guarantor Name 05/15/2022 1 [facility] - MEDICARE COMPLETE - CHOICE PLAN 2 (MEDICARE REPLACEMENT REGIONAL PPO) [id number] Edwin Hickey [id number] Edwin Hickey 09/18/2022 1 [facility] - MEDICARE COMPLETE - CHOICE PLAN 2 (MEDICARE REPLACEMENT REGIONAL PPO) [id number] Edwin Hickey [id number] Edwin Hickey 10/03/2022 1 [facility] - MEDICARE COMPLETE - CHOICE PLAN 2 (MEDICARE REPLACEMENT REGIONAL PPO) [id number] Edwin Hickey [id number] Edwin Hickey 11/23/2022 1 [facility] - MEDICARE COMPLETE - CHOICE PLAN 2 (MEDICARE REPLACEMENT REGIONAL PPO) [id number] Edwin Hickey [id number] Edwin Hickey 01/15/2023 1 [facility] - MEDICARE COMPLETE - CHOICE PLAN 2 (MEDICARE REPLACEMENT REGIONAL PPO) [id number] Edwin Hickey [id number] Edwin Hickey Notes Date Note Type Note Provider Name and Address Organization Details Recorded Time 05/16/19 23 text/htm l Diabetes no polyphagia no polydipsia does not take sugars regularlyOsteoarthritis of the knees uses scooterObesity realistically will not have significant weight loss voluntarilyHyperlipidemia does try to watch his intake of saturated fatHypertension no headache or dizzinessCAD no chest painAortic valve TAVR Shawnee Green MD [address], [place], [address], [employer] [facility] [employer] 06/04/2022 21:31:29 09/19/19 23 text/htm l Diabetes no polyphagia no polydipsia does not take sugars regularlyOsteoarthritis of the knees uses scooterObesity realistically will not have significant weight loss voluntarilyHyperlipidemia does try to watch his intake of saturated fatHypertension no headache or dizzinessCAD no chest painAortic valve TAVR Shawnee Green MD [address], [place], [address], [employer] [facility] [employer] 10/08/2022 11:29:42 10/04/19 23 text/htm l Patient returns status post bilateral total knees. He is 23 years out on the right 8 on the left. He is not having any issues walking well. He has more trouble with his breathing and his weight. Nishant Owusu MD [address], [place], [address], [employer] [facility] [employer] 10/03/2022 11:12:43 11/24/19 23 text/htm l chest pain swelling legs ER [facility] spent the night diuresed chest x-ray fluid overload BNP allegedly normal no echo done feeling better discharged on home dose of Lasix Shawnee Green MD [address], [place], [address], [employer] [facility] [employer] 11/23/2022 21:29:31 01/16/20 23 text/htm l Diabetes no polyphagia no polydipsia does not take sugars regularlyOsteoarthritis of the knees uses scooterObesity realistically will not have significant weight loss voluntarilyHyperlipidemia does try to watch his intake of saturated fatHypertension no headache or dizzinessCAD no chest painAortic valve TAVAnthony Green MD [address], [place], [address], [employer] [facility] [employer] 02/05/2023 19:53:09
--- OUTSIDE RECORDS SUMMARY | 2024-06-23 13:48 | XMS_ITS | Continuity of Care Document ---
Author Organization [facility] [place] [address] [place] [address] Phone Care Team Providers Care Psychiatric Specialist Name Role Phone Hany Vasquez Unavailable Unavailable Procedures Procedure Date Eye Exam & Treatment Refraction Eye Exam & Treatment Refraction Visual Field Examination(s) Eye Exam & Treatment Office/outpatient Visit, Est Eye Exam & Treatment Fundus Photography W/ Report Advance Directives Directive Yes / No Effective Date File Name No Information Encounters Encounter Description Practice Location Reason(s) For Visit Diagnoses Date Provider Providers Copied on Encounter [facility], [address] [place] [address] [address], [place], [place], [id number], [place] tel:[phone] [facility] No Information 3-201 0 Christina Leach. [address] , [address], [place], [place], [facility], [place]. tel:[phone] [facility], [address], [place], [place], [id number], [place] tel:[phone] [facility] No Information 2-200 9 Christina Leach. [address] , [address], [place], [address], [place]. tel:[phone] [facility], [address], [place], [place], [id number], [place] tel:[phone] [facility] No Information 200 8 Christina [facility]ach. [facility] [address], [place], [place], [facility], . tel:[phone] Referring Provider: [address], [place], [place], [facility]. tel:[phone] [facility], [address] [place] [address] [address], [place], [place], [id number], tel:[phone] [facility] No Information 8-200 8 Christina Leach. [address] [place] [address] [address], [place], [place], [facility], . tel:[phone] Office/outpat ient Visit, [facility], [address] [place] [address] [address], [place], [place], [id number], tel:[phone] [facility] No Information 9[address] Christina Leach. [facility] [address], [place], [place], [facility], . tel:[phone] [facility], [address] [place] [address] [address], [place], [place], [id number], tel:[phone] [facility] No Information 9[address] 7 Christina Leach. [facility] [address], [place], [place], [facility], . tel:[phone] Referring Provider: Hany Valero [facility] [address], [place], [place], [facility]. tel:[phone] Family History Family Member Type Diagnosis Age At Onset No Information Payers Payer name Insurance type Covered alliance party ID Authoriza tion(s) No Information Social History Type Description Quantity Date Captured Comments Sex Male Smoking Status No Information Chief Complaint And Reason For Visit No Information Reason For Referral Reason For Referral No Information History Of Present Illness Encounter Date Complaint History Of Prese nt Illness No Information Functional Status Date Functional Assessmen t No Information Instructions Date Instruction Additional Infor mation No Information Assessments Type Assessment Date No Information Patient Care Teams Name Effective Dates (start - stop) Status Members No Information
--- OUTSIDE RECORDS SUMMARY | 2024-06-23 13:49 | XMS_ITS | Referral Summary ---
Author Organization [facility] Address [address] [place] [address] Care Team Providers Care Quality Measurement Specialist Name Role Phone Lance Green MD Primary Care Provider [phone] Jean Pierre Snyder MD Unavailable Allergies No known active allergies Medications atorvastatin (LIPITOR) 10 mg tablet Take 1 tablet (10 mg total) by mouth every other day Active coenzyme Q10 200 mg capsule Take 1 capsule (200 mg total) by mouth daily Active doxazosin (CARDURA) 4 mg tablet Take 1 tablet (4 mg total) by mouth nightly Active loratadine 10 mg capsule Take 10 mg by mouth daily Active vit C,F-Uu-ecjjx-agus tein-zeaxan [id number] co-omhi-ym-mg capsule Take 1 capsule by mouth daily Active ergocalciferol (VITAMIN D) 50,000 unit capsule Take 1 capsule (50,000 Units total) by mouth once a week Sunday Active cyanocobalamin, vitamin B-12, 500 mcg tablet,chewable Take 2,000 mcg by mouth daily with lunch Active aspirin 81 mg enteric coated tablet Take 1 tablet (81 mg total) by mouth daily Active carvediloL (COREG) 12.5 mg tablet Take 1 tablet (12.5 mg total) by mouth 2 (two) times a day with meals Active multivitamin with folic acid 400 mcg tablet Take 1 tablet by mouth daily Active verapamil SR (CALAN SR) 120 mg CR tablet Take 1 tablet (120 mg total) by mouth nightly 30 tablet 11 11/20/2022 Active finasteride (PROSCAR) 5 mg tablet Take 1 tablet (5 mg total) by mouth daily 30 tablet 11 11/21/2022 Active furosemide (LASIX) 40 mg tablet Take 1 tablet (40 mg total) by mouth daily 30 tablet 1 11/20/2022 Active Active Problems Problem Noted Date Diagnosed Date Bilateral lower extremity edema 11/20/2022 Chest pain 11/20/2022 Shortness of breath 11/19/2022 Type 2 diabetes mellitus without complication SVT (supraventricular tachycardia) 01/22/2020 Nonrheumatic aortic valve stenosis 08/28/2019 Overview (08/28/2019): Added automatically from request for surgery [id number] Hypertension Coronary artery disease Hyperlipidemia BPH (benign prostatic hyperplasia) Troponin level elevated Immunizations Immunization Administration Dates Next Due Influenza, Unspecified 11/12/2022 Social History Tobacco Use Types Packs/Day Years Used Date Smoking Tobacco: Former Smokeless Tobacco: Former Chew Comments:cigars, quit 1980s Alcohol Use Standard Drinks/Week Comments Not Currently 0 (1 standard drink = 0.6 oz pur e alcohol) occasionally OASIS D0700: Social Isolation Answer Da te Recorded Frequency of experiencing loneliness or isolatio n Never 12/19/2022 OASIS A1250: Transportation Answer Date Recorded Lack of Transportation (Medical) No 12/19/2022 Lack of Transportation (Non-Medical) No 12/19/2022 Patient Unable or Declines to Respond No 12/19/2022 OASIS B1300: Health Literacy Answer Todd e Recorded Frequency of needing help to read materials from doctor or pharmacy Never 12/19/2022 Social Connection and Isolat ion Panel [NHANES] Answer Date Recorded In a typical week, how many times do you talk on the phone with family, friends, or neighbors? More than three times a week 09/24/2019 How often do you get togethe r with friends or relatives? More than three times a week 09/24/2019 Attends [employer] Services Not on file 09/23 Do you belong to any clubs o r organizations such as adventist groups, unions, fraternal or athletic groups, or school groups? Yes 09/24/2019 Attends Club or Organization Meetings Not on tricia e 09/24/2019 Marital Status Not on file 09/24/2019 AUDIT-C Answer Date Recorded Q1: How often do you have a drink containing alcohol? Never 11/19/2022 Q2: How many drinks containi ng alcohol do you have on a typical day when you are drinking? Patient does not drink Q3: How often do you have si x or more drinks on one occasion? Never 11/19/2022 Overall Financial Resource Strain (CARDIA) Answe r Date Recorded How hard is it for you to pa y for the very basics like food, housing, medical care, and heating? Somewhat hard 09/24/2019 PRAPARE - Transportation Answer Date Re corded In the past 12 months, has l ack of transportation kept you from medical appointments or from getting medications? No 09/05 In the past 12 months, has l ack of transportation kept you from meetings, work, or from getting things needed for daily living? No 09/24/2019 Personal Safety Answer Date Recorded Getting School Help Needed Not on file 11/23 Sex and Gender Information Value Date Recorded Sex Assigned at Not on file Legal Sex Male 6:44 PM EDUCATION CONSULTANT Gender Identity Not on file Sexual Orientation Not on file Last Filed Vital Signs Vital Sign Reading Time Taken Comments Blood Pressure 136/68 12/19/2022 2:32 PM EDUCATION CONSULTANT Pulse 76 12/19/2022 2:32 PM EDUCATION CONSULTANT Temperature 36.6 C (97.9 F) 12/19/2022 2:32 PM EDUCATION CONSULTANT Respiratory Rate 18 12/19/2022 2:32 PM EDUCATION CONSULTANT Oxygen Saturation 96% 12/19/2022 2:32 PM EDUCATION CONSULTANT Inhaled Oxygen Concentration - - Weight 131.3 kg (289 lb 8 oz) 12/19/2022 2:32 PM EDUCATION CONSULTANT Height 172.7 cm (5' 8 ) 11/26/2022 11:42 AM CDT Body Mass Index 44.02 11/26/2022 11:42 AM CDT Plan of Treatment Not on file Medical Devices Implanted Type Area Radiology Supervisor Device Identifier Shelf Expiration Date Model / Serial / Lot [employer] Evproplus-34us Valve 34mm Aortic Evolut Pro+ - [id number] - [id number] Implanted:Qty: 1 on 09/23/2019 by Jean Pierre Snyder MD at [facility] [employer] 02/25/2021 EVPROPLUS-3 4 / [id number] / Procedures Procedure Name Priority Date/Time Associated Diagnosis Comments EGFR Routine 11/20/2022 4:14 AM CDT HEMOGLOBIN A1C Routine 11/19/2022 8:32 PM CDT LIPID PANEL Timed 01/22/2020 12:33 AM EDUCATION CONSULTANT from Last 3 Months or Most Recently Relevant to Health Maintenance Results * eGFR (11/20/2022 4:14 AM CDT) eGFR 83 mL/min/1. 73 m2 Comment: Interpretive Data Reference Interval Normal >/= 90 mL/min/1.73m2 Mildly decreased* 60 - 89 mL/min/1.73m2 Mildly to moderately decreased 45 - 59 mL/min/1.73m2 Moderately to severely decreased 30 - 44 mL/min/1.73m2 Severely decreased 15 - 29 mL/min/1.73m2 Kidney Failure < 15 mL/min/1.73m2 *Relative to young adult level Estimated glomerular filtration rate is determined by the 2020 CKD-EPI equation recommended by the National Kidney Foundation (A Unifying Approach to GFR Estimation: Recommendations of the NKF-ASK Task Force on Reassessing the Inclusion of Race in Diagnosing Kidney Disease, JASN 2020). The CKD-EPI equation should not be used for patients with unstable renal function and has not been validated in children and those over 70. Current interpretive data was last reviewed 2020. Blood 11/20/2022 4:14 AM CDT 11/20/2022 5:08 AM CDT us Bassem Bolton NP LAB BLOOD ORDERABLES Bonnie welsh Result KEVIN ELIAS [address] Department [place] [address] * (ABNORMAL) Hemoglobin A1c (11/19/2022 8:32 PM CDT) Hgb A1C 6.4(H) 4.0 - 5.6 % Estimated Average Glucose 137 mg/dL KEVIN ELIAS Comment: The ADA recommends reporting an estimated Average Glucose (eAG) with all Hemoglobin A1c results using the equation derived from a study of 507 normal and diabetic adults. Minority populations were underrepresented and children were not included. (Diabetes Care 31:3157-7329, 2008). The eAG is not equivalent to a fasting glucose. Blood 11/19/2022 8:32 PM CDT 11/19/2022 8:41 PM CDT us Bassem Bolton NP LAB BLOOD ORDERABLES Bonnie anitha Result KEVIN ELIAS [address] Department [place] [address] * (ABNORMAL) Lipid panel (01/22/2020 12:33 AM EDUCATION CONSULTANT) Cholesterol 138 30 - 199 mg/dL KEVIN ELIAS Comment: Interpretive Data Ages < or = 19 years Acceptable: <170 mg/dL Borderline high: 170-199 mg/dL High: >or= 200 mg/dL Ages > or = 20 years Desirable: <200 mg/dL Borderline high: 200-239 mg/dL High: >or= 240 mg/dL Literature References: 1. Expert Panel on Integrated Guidelines for Cardiovascular Health and Risk Reduction in Children and Adolescents. Pediatrics 2011;128:S213 2. NCEP Expert Panel. Circulation 2004;110:227 Current Interpretive Data was last revised on 2017. Triglycerides 205(H) <=149 mg/dL KEVIN ELIAS Comment: Interpretive Data Ages < or = 9 years Acceptable: <75 mg/dL Borderline high: 75-99 mg/dL High: >or= 100 mg/dL Ages 10 to 20 years Acceptable: <90 mg/dL Borderline high: 90-129 mg/dL High: >or= 130 mg/dL Ages > or = 20 years Desirable: <150 mg/dL Borderline high: 150-199 mg/dL High: 200-499 mg/dL Very high: >or= 499 mg/dL Literature References: 1. Expert Panel on Integrated Guidelines for Cardiovascular Health and Risk Reduction in Children and Adolescents. Pediatrics 2011;128:S213 2. NCEP Expert Panel. Circulation 2004;110:227 Current Interpretive Data was last revised on 2017. HDL 34(L) >=40 mg/dL KEVIN ELIAS Comment: Interpretive Data Ages < or = 19 years Acceptable: >45 mg/dL Borderline low: 40-45 mg/dL Low: <40 mg/dL Ages > or = 20 years Desirable: >or= 60 mg/dL Low: <40 mg/dL Literature References: 1. Expert Panel on Integrated Guidelines for Cardiovascular Health and Risk Reduction in Children and Adolescents. Pediatrics 2011;128:S213 2. NCEP Expert Panel. Circulation 2004;110:227 Current Interpretive Data was last revised on 2017. LDL, calculated 63 <=129 mg/dL KEVIN ELISA Comment: Interpretive Data Ages < or = 19 years Acceptable: <110 mg/dL Borderline high: 110-129 mg/dL High: >or= 130 mg/dL Ages > or = 20 years Optimal: <100 mg/dL Near optimal: 100-129 mg/dL Borderline high: 130-159 mg/dL High: >160 mg/dL Literature References: 1. Expert Panel on Integrated Guidelines for Cardiovascular Health and Risk Reduction in Children and Adolescents. Pediatrics 2011;128:S213 2. NCEP Expert Panel. Circulation 2004;110:227 Current Interpretive Data was last revised on 2017. Non-HDL Cholesterol 104 mg/dL KEVIN ELIAS Comment: Interpretive Data Ages < or = 19 years Acceptable: <120 mg/dL Borderline high: 120-144 mg/dL High: >145 mg/dL Ages > or = 20 years When triglycerides are >200 mg/dL, Non-HDL cholesterol is a secondary target of therapy with treatment goals that are 30 mg/dL greater than the LDL cholesterol target. Literature References: 1. Expert Panel on Integrated Guidelines for Cardiovascular Health and Risk Reduction in Children and Adolescents. Pediatrics 2011;128:S213 2. NCEP Expert Panel. Circulation 2004;110:227 Current Interpretive Data was last revised on 2017. Chol/HDL ratio 4 KEVIN Blood specimen (specimen) 01/22/2020 12:33 AM EDUCATION CONSULTANT 01/22/2020 12:51 AM EDUCATION CONSULTANT Narrative KEVIN ELIAS - 01/22/2020 1:58 AM EDUCATION CONSULTANT This lipid panel was automatically ordered due to a critical delta for Troponin- T. The dietary status of the patient at the collection time should be correlated with the lipid results. us Valeriy Colbert MD LAB BLOOD [place] [id number] [address] Department [place] [address] from Last 3 Months or Most Recently Relevant to Health Maintenance Insurance [facility] MEDICARE ADVANTAGE [facility] MEDICARE ADVANTAGE [facility] MEDICARE ADVANTAGE Advance Directives For more information, please contact: [phone] Documents on File Type Date Recorded Patient Cash Manager Expl anation ADVANCE DIRECTIVE 11/21/2022 5:32 PM LENNY MODESTO WILL * Full Code (Latest Code Status on File) Date Activated Date Inactivated Comments 11/19/2022 5:07 PM 11/20/2022 7:01 PM * Full Code Date Activated Date Inactivated Comments 11/19/2022 2:31 PM 11/19/2022 5:06 PM * Full Code Date Activated Date Inactivated Comments 01/22/2020 7:45 AM 01/22/2020 8:48 PM * Full Code Date Activated Date Inactivated Comments 04/08/2019 11:32 AM 04/08/2019 6:47 PM Care Teams Quality Measurement Specialist Relationship Specialty Start Date End Date Lance Green MD PCP - General Internal Medicine 08/14/19 Jean Pierre Snyder MD Consulting Physician Cardiovascular Disease 09/25/19
--- OUTSIDE RECORDS SUMMARY | 2024-06-23 13:49 | XMS_ITS | CONTINUITY OF CARE DOCUMENT ---
Author Name ron velasquez Address Unknown Organization [facility] Address [address] [place] [address] Phone [phone] Care Team Providers Care Glass Cut Off Supervisor Name Role Phone Claudio MEJIA, Jean Pierre Unavailable SHAWNEE GONZALEZ MD Unavailable SHAWNEE GONZALEZ MD Unavailable PROBLEMS Condition Status Date Provider Notes PREDIABETES; active Bernard Gutierrez MD Vitamin D deficiency active Bernard Santiago B12 deficiency active Bernard Gutierrez MD Sleep apnea--on C-pap active Jean Pierre Santiago Chest pain active Jean Pierre Snyder MD CAD s/p stent to LAD, L circ (03/2015) active Jean Pierre Snyder MD VENOUS INSUFFICIENCY active Jean Pierre Snyder MD Preoperative cardiovascular examination active Jean Pierre Snyder MD HFpEF active Jean Pierre Snyder MD Abnormal nuclear stress test active Jean Pierre lagunas MD Aortic stenosis, severe- s/p TAVR active Us zehra Snyder MD Tobacco use, quit active Bernard Gutierrez MD Leg numbness active Jean Pierre Snyder MD SHORTNESS OF BREATH-09/17 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 Chet Taylor RN Bradycardia active Jean Pierre Snyder MD Hypercholesterolemia active Ana Luisa Calix lder SVT- 1995 active ? 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 Chet Taylor RN OBESITY active ? Jean Pierre Snyder MD Aortic sclerosis active Conrado Beckford MD ENCOUNTERS Date Type Provider Location Encounter Diag nosis - In-person encounter Office Visit Jean Pierre Snyder MD [place] [facility] - In-person encounter Office Visit Jean Pierre Snyder MD [place] Abnormal nuclear stress testHFpEF - In-person encounter Office Visit Jean Pierre Snyder MD [place] - In-person encounter Office Visit Jean Pierre Snyder MD [place] - In-person encounter Office Visit Jean Pierre Snyder MD [place] [facility] - In-person encounter Office Visit Jean Pierre Snyder MD [place] Aortic stenosis, severe- s/p TAVR - In-person encounter Office Visit Jean Pierre Snyder MD [place] - In-person encounter Office Visit Jean Pierre Snyder MD [place] - In-person encounter Office Visit Jean Pierre Snyder MD [place] - In-person encounter Office Visit Jean Pierre Snyder MD [place] - In-person encounter Office Visit Jean Pierre Snyder MD [place] - In-person encounter Office Visit Jean Pierre Snyder MD [place] [facility] - In-person encounter Office Visit Jean Pierre Snyder MD [place] [facility] - In-person encounter Office Visit Jean Pierre Snyder MD [facility] - In-person encounter Office Visit Jean Pierre Snyder MD [place] [facility] - In-person encounter Office Visit Jean Pierre Snyder MD [facility] - In-person encounter Office Visit Jean Pierre Snyder MD [place] [facility] - In-person encounter Office Visit Jean Pierre Snyder MD [place] Aortic stenosis, severe- s/p TAVR - In-person encounter Office Visit Jean Pierre Snyder MD [place] - In-person encounter Office Visit Jean Pierre Snyder MD [facility] Aortic stenosis, severe- s/p TAVR - In-person encounter Office Visit Jean Pierre Snyder MD [place] - In-person encounter Office Visit Jean Pierre Snydre MD [place] - In-person encounter Office Visit Jean Pierre Snyder MD [place] Preoperative cardiovascular examination - In-person encounter Office Visit Bernard Gutierrez MD [place] Tobacco use, quit - In-person encounter Office Visit Jean Pierre Snyder MD [facility] Leg numbness - In-person encounter Office Visit Jean Pierre Snyder MD [place] - In-person encounter Office Visit Conrado Beckford MD [facility] Aortic sclerosis - In-person encounter Office Visit Jean Pierre Snyder MD [place] [facility] VENOUS INSUFFICIENCY - In-person encounter Office Visit Jean Pierre Snyder MD [place] - In-person encounter Office Visit Jean Pierre Snyder MD [place] - In-person encounter Office Visit Jean Pierre Snyder MD [place] CAD s/p stent to LAD, L circ (03/2015) - In-person encounter Office Visit Jean Pierre Snyder MD [facility] Sleep apnea--on C-papChest pain - In-person encounter Office Visit Jean Pierre Snyder MD [place] Aortic sclerosisBradycardia - In-person encounter Office Visit Jean Pierre Snyder MD [place] Sleep apnea--on C-pap - In-person encounter Office Visit Jean Pierre Snyder MD [place] - In-person encounter Office Visit Jean Pierre Snyder MD [place] Aortic sclerosisOBESITYHTN ESSENTIAL-02/15 RT STRESS NEGSVT- 1994HypercholesterolemiaBra dycardiaSHORTNESS OF BREATH-09/17 NUC NEG VITAL SIGNS Date Observation Value Provider Body Mass Index (Ratio) 42.87 kg/m2 Mary Grace Snyder MD oxygen saturation, oximetry 97 % [facility] 100 /min Olga Ventimig [facility] blood pressure, diastolic 82 mm[Hg] Am neftaly Ventimiglia [facility] blood pressure, systolic 134 mm[Hg] [place] nda [facility] respiratory rate E&M 16 /min [facility] height E&M 68 [in_i] Olga Ventimig [facility] weight E&M 282 [lb_av] Olga Ventimig [facility] Body Mass Index (Ratio) 44.24 kg/m2 Mary Grace Snyder MD blood pressure, diastolic 80 mm[Hg] Narciso Carter blood pressure, systolic 167 mm[Hg] Yandy Carter oxygen saturation, oximetry 96 % Roz Carter pulse rate 75 /min Roz [place] respiratory rate E&M 14 /min [facility]&M 291 [lb_av] [facility] height E&M 68 [in_i] [facility] blood pressure, cuff size regular aNrciso de guzman [place] Body Mass Index (Ratio) 44.55 kg/m2 Mary Grace Snyder MD blood pressure, diastolic 55 mm[Hg] [facility] blood pressure, systolic 121 mm[Hg] [facility] oxygen saturation, oximetry 94 % [facility] pulse rate 73 /min [facility] respiratory rate E&M 14 /min [facility] weight E&M 293 [lb_av] [facility] height E&M 68 [in_i] [facility] blood pressure, cuff size regular [facility] Body Mass Index (Ratio) 44.55 kg/m2 Mary Grace Snyder MD pulse rate 80 /min Halley Stack respiratory rate E&M 14 /min Halley Rosettaviktoriya oxygen saturation, oximetry 96 % Halley Stack blood pressure, diastolic 65 mm[Hg] Martha mcpherson Posley blood pressure, systolic 141 mm[Hg] Les dottie Posley weight E&M 293 [lb_av] Halley Posley height E&M 68 [in_i] Halley Posley Body Mass Index (Ratio) 45.00 kg/m2 Mary Grace Snyder MD blood pressure, diastolic 64 mm[Hg] Tabitha nkLogic blood pressure, systolic 148 mm[Hg] Jacey kLogic blood pressure, cuff size large [facility] blood pressure, diastolic 64 mm[Hg] [facility] blood pressure, systolic 148 mm[Hg] [facility], oximetry 92 % [facility] respiratory rate E&M 16 /min Ana Luisa Figueroa iller pulse rate 83 /min [facility] weight E&M 296 [lb_av] [facility] height E&M 68 [in_i] [facility] Body Mass Index (Ratio) 45.46 kg/m2 Mary Grace Snyder MD pulse rate 82 /min Eran y blood pressure, cuff size large [facility] blood pressure, diastolic 74 mm[Hg] Ravi [facility] blood pressure, systolic 129 mm[Hg] [facility] respiratory rate E&M 12 /min Eran oxygen saturation, oximetry 94 % [facility] weight E&M 299 [lb_av] Eran y height E&M 68 [in_i] [facility] y Body Mass Index (Ratio) 45.00 kg/m2 Mary Grace Snyder MD blood pressure, diastolic 64 mm[Hg] Hannah nichols Cavazos blood pressure, systolic 166 mm[Hg] [facility] liyah Cavazos oxygen saturation, oximetry 98 % Faith Cavazos pulse rate 89 /min Fiath santiago weight E&M 296 [lb_av] Faith santiago respiratory rate E&M 16 /min Olga Cavazos blood pressure, cuff size large Hannah Cavazos height E&M 68 [in_i] Faith santiago Body Mass Index (Ratio) 44.39 kg/m2 Mary Grace Snyder MD blood pressure, diastolic 55 mm[Hg] Sa ra Henry blood pressure, systolic 125 mm[Hg] Lashell a Henry oxygen saturation, oximetry 93 % Felecia Henry respiratory rate E&M 17 /min Felecia Si ms pulse rate 85 /min Felecia Henry height E&M 68 [in_i] Felecia Henry blood pressure, cuff size regular Sa ra Henry weight E&M 292 [lb_av] Felecia Henry Body Mass Index (Ratio) 47.53 kg/m2 Mary Grace Snyder MD blood pressure, diastolic 62 mm[Hg] Li nkLogic blood pressure, systolic 123 mm[Hg] Jacey kLogic blood pressure, cuff size large Sa ra Henry blood pressure, diastolic 62 mm[Hg] Sa ra Henry blood pressure, systolic 123 mm[Hg] Lashell a Henry oxygen saturation, oximetry 98 % Felecia Henry respiratory rate E&M 17 /min Felecia Si ms pulse rate 82 /min Felecia Henry weight E&M 299 [lb_av] Felecia Henry height E&M 66.5 [in_i] Felecia Henry Body Mass Index (Ratio) 48.49 kg/m2 Mary Grace Snyder MD blood pressure, cuff size regular Ravi Taylor RN blood pressure, diastolic 74 mm[Hg] Ravi Taylor RN blood pressure, systolic 151 mm[Hg] Chet Taylor RN oxygen saturation, oximetry 95 % Chet Taylor RN respiratory rate E&M 24 /min Chet borrego RN pulse rate 86 /min Chet Taylor RN weight E&M 305 [lb_av] Chet Taylor RN Body Mass Index (Ratio) 47.05 kg/m2 Mary Grace Snyder MD blood pressure, diastolic 70 mm[Hg] Sarah Harris blood pressure, systolic 158 mm[Hg] Estefania Harris pulse rate 65 /min Beth chamberlain oxygen saturation, oximetry 98 % Beth Harris respiratory rate E&M 18 /min Teo Harris weight E&M 296 [lb_av] Beth ureñad height E&M 66.5 [in_i] Beth Ulrich chamberlain Body Mass Index (Ratio) 44.99 kg/m2 Mary Grace Snyder MD blood pressure, cuff size regular Kr isty [place] blood pressure, diastolic 70 mm[Hg] Kr isty [place] blood pressure, systolic 140 mm[Hg] Kri sty Liban pulse rate 85 /min Kathrine Liban oxygen saturation, oximetry 94 % Kathrine Liban respiratory rate E&M 18 /min Kathrine [place] weight E&M 283 [lb_av] Kathrine [place] blood pressure, resting No Keny ty Liban height E&M 66.5 [in_i] Kathrine Liban Body Mass Index (Ratio) 44.51 kg/m2 Mary Grace Snyder MD blood pressure, resting Yes Keny ty [place] blood pressure, cuff size regular Kr isty Liban blood pressure, diastolic 80 mm[Hg] Kr isty [place] blood pressure, systolic 140 mm[Hg] Kri sty Liban respiratory rate E&M 18 /min Kathrine [place] pulse rate 86 /min Kathrine Elizabethby oxygen saturation, oximetry 96 % Kathrine Elizabethby weight E&M 280.0 [lb_av] Kathrine Elizabethby height E&M 66.5 [in_i] Kathrine Liban Body Mass Index (Ratio) 44.51 kg/m2 Mary Grace Snyder MD respiratory rate E&M 16 /min Chastit y Chris oxygen saturation, oximetry 96 % Chastity Chris pulse rate 70 /min Chastity Chris temperature E&M 96.8 [degF] Chastity Hog ue weight E&M 280 [lb_av] Chastity Chris blood pressure, diastolic 51 mm[Hg] Ch astity Chris blood pressure, systolic 149 mm[Hg] Ida stity Chris height E&M 66.5 [in_i] Chastity Chris Body Mass Index (Ratio) 44.19 kg/m2 Mary Grace Snyder MD blood pressure, diastolic 72 mm[Hg] To nsha Crawford blood pressure, systolic 159 mm[Hg] Ton sha Crawford oxygen saturation, oximetry 96 % Tonsha Crawford respiratory rate E&M 16 /min Tonsha Crawford pulse rate 82 /min Tonsha Crawford weight E&M 278 [lb_av] Tonsha Crawford blood pressure, resting Yes Tons becerra Crawford height E&M 66.5 [in_i] Tonsha Crawford Body Mass Index (Ratio) 43.72 kg/m2 Mary Grace Snyder MD pulse rate 88 /min Jean Pierre Snyder MD oxygen saturation, oximetry 97 % Jean Pierre Snyder MD weight E&M 275 [lb_av] Jean Pierre Snyder MD blood pressure, diastolic 72 mm[Hg] Us shahid Claudio MEJIA blood pressure, systolic 148 mm[Hg] Stevie stuart Claudio MEJIA Body Mass Index (Ratio) 43.88 kg/m2 Mary Grace middleton Claudio MEJIA temperature site temporal Jovana Bergeron se temperature E&M 97.3 [degF] Jovana Herrera e blood pressure, diastolic 67 mm[Hg] Cy ciaran Malcolm blood pressure, systolic 133 mm[Hg] Pippa canas Malcolm respiratory rate E&M 16 /min Luz Elena Malcolm pulse rate 81 /min Luz Elena Enciso l oxygen saturation, oximetry 95 % Luz Elena Malcolm weight E&M 276 [lb_av] Luz Elena Carrbel l blood pressure, cuff size regular Cy ciaran Malcolm height E&M 66.5 [in_i] Luz Elena Brunobel l Body Mass Index (Ratio) 44.99 kg/m2 Mary Grace emi Snyder MD blood pressure, cuff size regular Cy ciaran Malcolm blood pressure, diastolic 76 mm[Hg] Cy ciaran Malcolm blood pressure, systolic 140 mm[Hg] Pippa floresita Malcolm pulse rate 87 /min Luz Elena Carrbel l oxygen saturation, oximetry 95 % Luz Elenafloresita Malcolm respiratory rate E&M 18 /min Luz Elena Malcolm weight E&M 283 [lb_av] Luz Elena Carrbel l height E&M 66.5 [in_i] Luz Elena Campbel l Body Mass Index (Ratio) 47.69 kg/m2 samreen emi Snyder MD blood pressure, diastolic 74 mm[Hg] Ch astity Chris blood pressure, systolic 126 mm[Hg] Ida stity Chris oxygen saturation, oximetry 95 % Chastity Chris pulse rate 73 /min [facility] rate E&M 16 /min Idastit Chris weight E&M 300 [lb_av] [facility] 66.5 [in_i] [facility] Body Mass Index (Ratio) 47.21 kg/m2 Mary Grace Snyder MD blood pressure, diastolic 70 mm[Hg] Ray angulo [place] blood pressure, systolic 120 mm[Hg] Leanne Elizabethby respiratory rate E&M 19 /min Kathrine [place] oxygen saturation, oximetry 95 % Kathrine [place] pulse rate 71 /min Kathrine Liban weight E&M 297 [lb_av] Kathrine Liban blood pressure, cuff size regular Kr kev Elizabethby height E&M 66.5 [in_i] Kathrine [place] Body Mass Index (Ratio) 47.56 kg/m2 Mary Grace Snyder MD blood pressure, diastolic 71 mm[Hg] Samreen Normanemi Parikh blood pressure, systolic 148 mm[Hg] Barbara Edwardfanta Parikh oxygen saturation, oximetry 97 % Juni Parikh respiratory rate E&M 20 /min Parrish Parihk pulse rate 74 /min Juni pacheco weight E&M 299.2 [lb_av] Juni Jayjay mellisa height E&M 66.5 [in_i] Juni Robb tara Body Mass Index (Ratio) 48.33 kg/m2 Hari Plurad blood pressure, cuff size large Ke rri Gruenenfpariser blood pressure, diastolic 72 mm[Hg] Ke rri Gruenenfelder blood pressure, systolic 132 mm[Hg] Ker ri Amandeepuenenfelder oxygen saturation, oximetry 96 % Ana Luisa Gruenenfelder respiratory rate E&M 24 /min Ana Luisa G ruenenfelder pulse rate 85 /min Ana Luisa Gruenenfe lder weight E&M 304 [lb_av] Ana Luisa Gruenenfe lder height E&M 66.5 [in_i] Ana Luisa Gruenenfe lder Body Mass Index (Ratio) 48.33 kg/m2 Mary Grace Snyder MD blood pressure, cuff size large Ke rri Gruenenfelder blood pressure, diastolic 60 mm[Hg] Ke rri Gruenenfelder blood pressure, systolic 126 mm[Hg] Ker ri Gruenenfelder oxygen saturation, oximetry 94 % Ana Luisa Gruenenfelder respiratory rate E&M 20 /min Ana Ulisa G minervaenenfelder pulse rate 72 /min Ana Luisa Gruenenfe lder weight E&M 304 [lb_av] Ana Luisa Gruenenfe lder height E&M 66.5 [in_i] Ana Luisa Gruenenfe lder Body Mass Index (Ratio) 48.33 kg/m2 Eliud Gutierrez MD blood pressure, cuff size large Ke rri Gruenenfelder blood pressure, diastolic 82 mm[Hg] Ke rri Gruenenfelder blood pressure, systolic 128 mm[Hg] Ker ri Gruenenfelder oxygen saturation, oximetry 94 % Ana Luisa Gruenenfelder respiratory rate E&M 18 /min Ana Luisa G ruenenfelder pulse rate 81 /min Ana Luisa Gruenenfe lder weight E&M 304 [lb_av] Ana Luisa Gruenenfe lder height E&M 66.5 [in_i] Ana Ulisa Gruenenfe [facility] Body Mass Index (Ratio) 47.85 kg/m2 Mary Grace Snyder MD blood pressure, cuff size large Ke rri Gruenenfelder blood pressure, diastolic 80 mm[Hg] Ke rri Gruenenfelder blood pressure, systolic 120 mm[Hg] Ker ri Gruenefranciscoer oxygen saturation, oximetry 95 % Ana Luisa Gruenenfpariser respiratory rate E&M 24 /min Ana Luisa G minervaenenfpariser pulse rate 81 /min Ana Luisa Gruenenfe [facility] weight E&M 301 [lb_av] Ana Luisa Gruenenfe [facility] height E&M 66.5 [in_i] Ana Luisa Janeyneisabele [facility] Body Mass Index (Ratio) 47.56 kg/m2 Mary Grace Snyder MD blood pressure, diastolic 67 mm[Hg] Samreen Parikh blood pressure, systolic 134 mm[Hg] Barbara Clydemitesh Parikh oxygen saturation, oximetry 96 % JuniCynthia Roenson respiratory rate E&M 20 /min Parrish mitesh RoParikh pulse rate 76 /min Juni Zamudio jabierrobert weight E&M 299.2 [lb_av] Juni Jayjay mellisa height E&M 66.5 [in_i] Juni Zamudio tara Body Mass Index (Ratio) 46.10 kg/m2 Cecilio Beckford MD blood pressure, cuff size large Ke rri Gruenenfjose carlos blood pressure, diastolic 52 mm[Hg] Ke rri Gruenenfelder blood pressure, systolic 132 mm[Hg] Sheron ri Amandeepuenejessy oxygen saturation, oximetry 91 % Ana Luisa Lucas respiratory rate E&M 20 /min Ana Luisa G ruenenfeldaraceli pulse rate 69 /min Ana Luisa Calix er weight E&M 290 [lb_av] Ana Luisa Calix er height E&M 66.5 [in_i] Ana Luisa Calix er Body Mass Index (Ratio) 45.05 kg/m2 Mary Grace Snyder MD blood pressure, diastolic 60 mm[Hg] Samreen Parikh blood pressure, systolic 130 mm[Hg] Barbara Parikh oxygen saturation, oximetry 96 % Juni Parikh respiratory rate E&M 20 /min Parrish Parikh pulse rate 75 /min Juni pacheco weight E&M 283.4 [lb_av] Juni pak height E&M 66.5 [in_i] Juni pacheco Body Mass Index (Ratio) 47.21 kg/m2 Mary Grace Snyder MD blood pressure, cuff size regular Al anuj Lockett blood pressure, diastolic 73 mm[Hg] Al anuj Lockett blood pressure, systolic 148 mm[Hg] Ana Maria maria Lockett oxygen saturation, oximetry 96 % Jovana Lockett respiratory rate E&M 16 /min Jovana Lockett pulse rate 60 /min Jovana Lockett weight E&M 297 [lb_av] Jovana Lockett height E&M 66.5 [in_i] Jovana Lockett blood pressure, diastolic 60 mm[Hg] Samreen Parikh blood pressure, systolic 130 mm[Hg] Barbara Parikh pulse rate 84 /min Juni Robb tara oxygen saturation, oximetry 69 % Juni Parikh respiratory rate E&M 18 /min Parrish Parikh Body Mass Index (Ratio) 47.09 kg/m2 Ai Parikh weight E&M 296.2 [lb_av] Juni pak Body Mass Index (Ratio) 45.31 kg/m2 Lisa bueno Lucas weight E&M 285 [lb_av] Ana Luisa Fifi lder blood pressure, diastolic 64 mm[Hg] Shahzad damian Lucas blood pressure, systolic 129 mm[Hg] Sheron kelly Lucas pulse rate 72 /min Ana Luisa Fifi lder oxygen saturation, oximetry 95 % Ana Luisa Lucas respiratory rate E&M 16 /min Ana Luisa Wu lucia blood pressure, diastolic 62 mm[Hg] Al anuj Lockett blood pressure, systolic 124 mm[Hg] Ana Maria maria Lockett pulse rate 70 /min Jovana Lockett oxygen saturation, oximetry 95 % Jovana Lockett respiratory rate E&M 15 /min Jovana Lockett Body Mass Index (Ratio) 44.03 kg/m2 Deena [facility] weight E&M 277 [lb_av] Jovana Lockett blood pressure, diastolic 79 mm[Hg] Al anuj Bautista blood pressure, systolic 143 mm[Hg] Ana Maria Bautista pulse rate 91 /min Jovana Michele oxygen saturation, oximetry 96 % Jovana Michele respiratory rate E&M 18 /min Jovana Michele Body Mass Index (Ratio) 42.60 kg/m2 Deena kaur Michele weight E&M 268 [lb_av] Jovana Michele Body Mass Index (Ratio) 44.19 kg/m2 Anea rolo Brown blood pressure, diastolic 69 mm[Hg] An eatris Brown blood pressure, systolic 138 mm[Hg] Ane atris Brown pulse rate 70 /min Lea Wallis oxygen saturation, oximetry 95 % Lea Wallis respiratory rate E&M 18 /min Wilbur Wallis weight E&M 278 [lb_av] Lea Wallis blood pressure, diastolic 72 mm[Hg] Ravi emi Taylor RN blood pressure, systolic 148 mm[Hg] Chet Joyces RN pulse rate 97 /min Chet Joyces RN oxygen saturation, oximetry 96 % Chet Taylor RN respiratory rate E&M 14 /min Chet drakeruth RN weight E&M 299 [lb_av] Chet Joyces RN Body Mass Index (Ratio) 48.70 kg/m2 Ashtyn johanna Sanchez blood pressure, diastolic 74 mm[Hg] Sudheer mcdonalda Laura blood pressure, systolic 138 mm[Hg] Perez Sanchez pulse rate 71 /min Digna Laura oxygen saturation, oximetry 95 % Digna Laura respiratory rate E&M 20 /min Digna Miranda lucie weight E&M 305.2 [lb_av] Digna Laura height E&M 66.5 [in_i] Digna Sanchez blood pressure, diastolic 78 mm[Hg] Be jennifer Vaz blood pressure, systolic 126 mm[Hg] Bet claudy Vaz ALLERGIES No Known Drug Allergies RESULTS Date Observation Value Provider Reference Range Interpretation Location pro brain natriuretic peptide 131 pg/mL Link[facility] 0-486 prothrombin time (patient) 10.8 s [facility] 9.1-12.0 international normalized ratio (INR) 1.0 [facility] 0.9-1.2 lipoprotein, beta, serum, point, quantitative, calculated 87 mg/dL [facility] 0-99 HDL cholesterol, serum 34 mg/dL [facility] >39 Low triglyceride, serum, random 250 mg/dL [facility] 0-149 High cholesterol, serum 163 mg/dL [facility] [phone]/03/ 18 calcium, serum 9.2 mg/dL [facility] 8.6-10.2 carbon dioxide, venous blood 26 mmol/L [facility] 20-29 chloride, serum 103 mmol/L [facility] 96-106 potassium, serum 4.3 mmol/L [facility] 3.5-5.2 sodium, serum 142 mmol/L [facility] [phone]/03/ 18 urea nitrogen/creatinine ratio, serum 12 [facility] 10-24 creatinine, serum 0.99 mg/dL [facility] 0.76-1.27 urea nitrogen, blood 12 mg/dL [facility] 8-27 blood glucose, random 152 mg/dL [facility] 70-99 High basophil count, absolute 0.0 x10E3/uL [facility] 0.0-0.2 Eosinophil Absolute Count 0.2 X10E3/UL [facility] 0.0-0.4 monocyte count, blood, automated 0.4 X10E3/UL [facility] 0.1-0.9 lymphocyte count, blood, automated 1.8 X10E3/UL [facility] 0.7-3.1 Absolute Neutrophils 2.8 X10E3/UL [facility] 1.4-7.0 basophils as percent of blood leukocytes 1 % [facility] Not Estab. eosinophils as percent of blood leukocytes 3 % [facility] Not Estab. monocytes as percent of blood leukocytes 7 % [facility] Not Estab. lymphocytes as percent of blood leukocytes 34 % [facility] Not Estab. neutrophils as percent of blood leukocytes 55 % [facility] Not Estab. platelet count 171 X10E3/UL [facility] [phone]/03/ 18 red blood cell distribution width 13.7 % [facility] 11.6-15.4 mean corpuscular hemoglobin concentration, RBC 32.7 G/DL [facility] 31.5-35.7 mean corpuscular hemoglobin, RBC 28.7 pg [facility] 26.6-33.0 mean corpuscular volume, RBC 88 fL [facility] 79-97 hematocrit, blood 41.9 % [facility] 37.5-51.0 hemoglobin, blood 13.7 g/dL [facility] 13.0-17.7 erythrocyte (RBC) count 4.78 X10E6/UL [facility] 4.14-5.80 leukocyte count, blood 5.2 X10E3/UL [facility] 3.4-10.8 platelet count 182 X10E3/UL [facility] [phone]/11/ 10 red blood cell distribution width 14.8 % [facility] 12.3-15.4 mean corpuscular hemoglobin concentration, RBC 35.1 G/DL [facility] 31.5-35.7 mean corpuscular hemoglobin, RBC 28.5 pg [facility] 26.6-33.0 mean corpuscular volume, RBC 81 fL [facility] 79-97 hematocrit, blood 37.9 % [facility] 37.5-51.0 hemoglobin, blood 13.3 g/dL [facility] 13.0-17.7 erythrocyte (RBC) count 4.66 X10E6/UL [facility] 4.14-5.80 leukocyte count, blood 5.2 X10E3/UL [facility] 3.4-10.8 pro brain natriuretic peptide 139 pg/mL [facility] 0-486 B-12, serum 193 pg/mL [facility] [phone] Low microalbumin/creatin ine ratio, urine <3.7 mg/g creat [facility] 0.0-30.0 microalbumin, random, urine <3.0 ug/mL [facility] Not Estab. creatinine, random, urine 81.3 mg/dL [facility] Not Estab. rapid plasma reagin antibody screen Non Reactive [facility] Non Reactive hemoglobin A1C, blood, as % of total hemoglobin 6.0 % [facility] 4.8-5.6 High lipoprotein, beta, serum, point, quantitative, calculated 62 mg/dL [facility] 0-99 very low density lipoproteins 52 mg/dL [facility] 5-40 High HDL cholesterol, serum 32 mg/dL [facility] >39 Low triglyceride, serum, random 262 mg/dL [facility] 0-149 High cholesterol, serum 146 mg/dL [facility] [phone]/06/ 08 calcium, serum 9.1 mg/dL [facility] 8.6-10.2 carbon dioxide, venous blood 25 mmol/L [facility] 18-29 chloride, serum 103 mmol/L [facility] 96-106 potassium, serum 3.8 mmol/L [facility] 3.5-5.2 sodium, serum 143 mmol/L [facility] [id number] 8908/06/ 08 urea nitrogen/creatinine ratio, serum 11 [facility] 10-24 eGFR if 71 mL/min/{1.7 3_m2} [facility] >59 eGFR if not 62 mL/min/{1.7 3_m2} [facility] >59 creatinine, serum 1.11 mg/dL [facility] 0.76-1.27 urea nitrogen, blood 12 mg/dL [facility] 8-27 blood glucose, random 118 mg/dL Link[facility] 65-99 High red blood cell distribution width, size density 48.3 fL LinkLog - immature granulocytes, percentage of total cells, blood 0.0 % [facility] - nucleated red blood cells as percent of blood leukocytes 0.0 % [facility] - red blood cell (erythrocyte) count, per high power field 0.0 10*3/UL [facility] - eosinophils as percent of blood leukocytes 1.8 % [facility] - neutrophils as percent of blood leukocytes 52.0 % [facility] - Absolute Neutrophils 2.3 CELLS/UL [facility] 1.5 - 7.8 basophils as percent of blood leukocytes 0.7 % [facility] - Absolute Basophils 0.0 CELLS/UL [facility] 0.0 - 0.2 monocytes as percent of blood leukocytes 7.4 % [facility] - Absolute Monocytes 0.3 CELLS/UL [facility] 0.2 - 1.0 lymphocytes as percent of blood leukocytes 38.1 % [facility] - Absolute Lymphocytes 1.7 CELLS/UL [facility] 0.9 - 3.9 mean platelet volume 11.5 (?) [facility] - platelet count 172.0 THOUSAND/UL [facility] 100.0 - 400.0 mean corpuscular hemoglobin concentration, RBC 30.9 G/DL [facility] 31.0 - 38.0 Low mean corpuscular hemoglobin, RBC 26.9 pg [facility] 25.0 - 35.0 mean corpuscular volume, RBC 87.2 fL [facility] 75.0 - 100.0 hematocrit, blood 38.2 % [facility] 35.0 - 55.0 hemoglobin, blood 11.8 g/dL [facility] 11.5 - 16.5 erythrocyte count, whole blood 4.4 MILLION/UL [facility] 3.5 - 5.5 prothrombin time (patient) 10.1 s [facility] 9.0 - 11.5 international normalized ratio (INR) 1.0 [facility] 0.9 - 1.1 very low density lipoproteins 41.8 mg/dL [facility] 5.0 - 40.0 High LDL/HDL (low-density lipoprotein/high-den sity lipoprotein) ratio 2.3 RATIO [facility] - lipoprotein, beta, serum, point, quantitative, calculated 83.2 (?) [facility] 0.0 - 100.0 HDL cholesterol, serum 36.0 mg/dL [facility] 35.0 - 55.0 cholesterol, serum 161.0 mg/dL [facility] 0.0 - 200.0 triglyceride, serum, fasting 209.0 mg/dL [facility] 0.0 - 150.0 High anion gap, serum 15.5 [facility] - albumin/globulin ratio, serum 2.9 g/dL [facility] 1.1 - 2.5 High globulin, serum 2.4 [facility] 2.3 - 3.8 urea nitrogen/creatinine ratio, serum 11.1 [facility] - Estimated Glomerular Filtration Rate (calc) 86.5 (?) [facility] 59.0 - chloride, serum 101.5 mmol/L [facility] 98.0 - 107.0 potassium, serum 3.7 mmol/L [facility] 3.5 - 5.1 sodium, serum 144.0 mmol/L [facility] 136.0 - 145.0 creatinine, serum 0.9 mg/dL [facility] 0.7 - 1.2 carbon dioxide, venous blood 27.0 mmol/L [facility] 23.0 - 31.0 albumin, serum 4.5 g/dL [facility] 3.5 - 5.2 calcium, serum 8.9 mg/dL [facility] 8.6 - 10.2 aspartate aminotransferase (SGOT), serum 20.0 1/L [facility] 0.0 - 40.0 alkaline phosphatase, serum 65.0 1/L [facility] 40.0 - 130.0 alanine aminotransferase (SGPT), serum 19.0 1/L [facility] 0.0 - 41.0 protein, total, serum 6.9 g/dL [facility] 6.6 - 8.7 bilirubin, serum, total 0.5 mg/dL [facility] 0.0 - 1.2 urea nitrogen, blood 10.0 mg/dL [facility] 8.0 - 23.0 blood glucose, random 114.0 mg/dL [facility] 74.0 - 99.0 High HISTORY OF MEDICATION USE Medication Status Instructions Dates Provider Indications [facility] lisinopril 20 mg tablet active Take 1 tablet by mouth once daily Jean Pierre Snyder MD verapamil 120 mg tablet extended release active Take 1 tablet by mouth once a day Apoorva Bansal RN furosemide 40 mg tablet active TAKE 1 TABLET BY MOUTH EVERY DAY Isidra Gaitan ergocalciferol (vitamin D2) 1,250 mcg (50,000 unit) capsule active Take 1 capsule by mouth once a week Ana Luisa Siner furosemide 40 mg tablet completed Take 1 tablet by mouth once a day - Isidra [facility] ergocalciferol (vitamin D2) 1,250 mcg (50,000 unit) capsule completed TAKE 1 CAPSULE BY MOUTH ONCE WEEKLY - Ana Luisa Siner furosemide 40 mg tablet completed Take 1 tablet by mouth once a day TAKE ONE TABLET BY MOUTH EVERY DAY - Ana Luisa Zavala doxazosin 4 mg tablet active TAKE 1 TABLET BY MOUTH EVERY DAY Isidra Gaitan carvedilol 12.5 mg tablet completed TAKE 1 TABLET BY MOUTH TWICE A DAY - Jean Pierre Snyder MD aspirin 81 mg tablet,delayed release (DR/EC) active TAKE 1 TABLET BY MOUTH EVERY DAY Winsome Garay verapamil 120 mg tablet extended release completed TAKE 1 TABLET BY MOUTH EVERY DAY - Apoorva Bansal RN Vitamin D2 1,250 mcg (50,000 unit) capsule completed Take 1 capsule by mouth once a week TAKE ONE CAPSULE BY MOUTH ONCE WEEKLY - Faith Cavazos atorvastatin 10 mg tablet active Take 1 tablet by mouth once a day Ana Luisa Zavala carvedilol 12.5 mg tablet completed Take 1 tablet by mouth twice a day - Isidra Rushi doxazosin 4 mg tablet completed Take 1 tablet by mouth once a day - Steedman Rushi verapamil 120 mg tablet extended release completed Take 1 tablet by mouth once a day - Steedman Rushi doxazosin 4 mg tablet completed TAKE 1 TABLET BY MOUTH ONCE A DAY - Ana Luisa Zavala atorvastatin 10 mg tablet completed TAKE ONE TABLET BY MOUTH EVERY OTHER DAY - Ana Luisa Zavala verapamil 120 mg tablet extended release completed TAKE ONE TABLET BY MOUTH ONCE DAILY - Ana Luisa Zavala furosemide 40 mg tablet completed TAKE ONE TABLET BY MOUTH EVERY DAY - Korina Kay Vitamin D2 1,250 mcg (50,000 unit) capsule completed TAKE ONE CAPSULE BY MOUTH ONCE WEEKLY - Korina Kay carvedilol 12.5 mg tablet completed TAKE ONE TABLET BY MOUTH TWICE DAILY - Ana Luisa Zavala verapamil 120 mg tablet extended release completed Take 1 tablet by mouth once a day - Kathrine Louie #30, 30 days supply, Prescribed by PEDRO TELLEZ, Filled 01/22/2020 clopidogrel 75 mg tablet completed Take 1 tablet by mouth once a day - Chet Taylor RN #30, 30 days supply, Prescribed by CLEMENT SANTILLAN, Filled 02/02/2020 COQ-10 100 MG ORAL CAPSULE completed TAKE ONE TABLET BY MOUTH ONCE DAILY - Regina Perez VITAMIN D 50,000 ORAL TABLET (MULTIPLE VITAMINS-MINERAL S) completed take one tablet by mouth once weekly - Regina Perez VITAMIN D TABLET completed once a week - Ana Luisa Zavala VITAMIN B-12 TABLET completed once a day - Ana Luisa Zavala VITAMIN D3 64197 UNIT ORAL TABLET completed Take 1 tablet by mouth once a week - Olga SANDOVAL Vitamin B-12 1,000 mcg tablet active 1 tablet once a day Bernard Gutierrez MD ADIPEX-P 37.5 MG ORAL CAPSULE completed one tab a day - Ana Luisa Zavala TOPAMAX 100 MG ORAL TABLET completed one tab a day - Ana Luisa Zavala PreserVision AREDS 7,160 unit- 113 mg-100 unit tablet active once a day Juni Parikh Co Q-10 (with Vit E) 100-5 mg-unit capsule active Take 1 once a day Ana Luisa Zavala CLOPIDOGREL BISULFATE 75 MG ORAL TABLET completed Take 1 Tablet Once a Day. - Jean Pierre Snyder MD KRILL OIL 300 MG ORAL CAPSULE completed once daily - Ana Luisa Zavala ISOSORBIDE MONONITRATE ER 30 MG ORAL TABLET EXTENDED RELEASE 24 HOUR completed one tab. daily - Jean Pierre Snyder MD CARVEDILOL 12.5 MG* TAB TEVA completed TAKE ONE TABLET BY MOUTH TWICE DAILY - Kathrine Louie Loradamed 10 mg tablet active 1 tablet once a day Swetha Lyon RN Adult Aspirin Regimen 81 mg tablet,delayed release (/EC) completed Take 1 tablet by mouth once a day - Isidra Gaitan VERAPAMIL HCL ER 120 MG ORAL CAPSULE EXTENDED RELEASE 24 HOUR completed one tab daily - Regina Perez atorvastatin 10 mg tablet completed Take 1 tablet by mouth every other day - Ana Luisa Zavala furosemide 40 mg tablet completed Take 1 tablet by mouth once a day - Jean Pierre Snyder MD finasteride 5 mg tablet active 1 tablet once a day Swetha Lyon RN doxazosin 4 mg tablet completed Take 1 tablet by mouth once a day - Ena Unger ADULT ASPIRIN EC LOW STRENGTH 81 MG ORAL TABLET DELAYED RELEASE completed 1 tab daily - Jovana Lockett SOCIAL HISTORY Date Observation Value Provider personal history of marijuana use no Olga Ventimiglia [facility] drug use no Olga Ventimig eladia [facility] alcohol use, type beer Olga Keshav timiglia [facility] alcohol use yes Olga Ventimig eladia [facility] passive cigarette sm wallace exposure no Olga Ventimiglia [facility] smoking status Never smoker Olga Ventim iglia [facility] drug use no Jean Pierre Snyder MD alcohol use, type beer Jean Pierre quintero MD alcohol use yes Jean Pierre Snyder MD passive cigarette sm wallace exposure no Jean Pierre Snyder MD smoking status Never smoker Jean Pierre Snyder MD drug use no Jean Pierre Snyder MD alcohol use, type beer Jean Pierre quintero MD alcohol use yes Jean Pierre Snyder MD passive cigarette sm wallace exposure no Jean Pierre Snyder MD smoking status Never smoker Jean Pierre Snyder MD drug use no Jean Pierre Snyder MD alcohol use, type beer Jean Pierre quintero MD alcohol use yes Jean Pierre Snyder MD passive cigarette sm wallace exposure no Jean Pierre Snyder MD smoking status Never smoker Jean Pierre Snyder MD drug use no Ana Luisa Reyes alcohol use, type beer [facility] alcohol use yes Ana Luisa Reyes passive cigarette sm wallace exposure no Ana Luisa Reyes smoking status Never smoker Ana Luisa Reyes passive cigarette sm wallace exposure no Jean Pierre Snyder MD smoking status Never smoker Jean Pierre Snyder MD social history E&M Job 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 Jean Pierre Snyder MD social history revie wed E&M reviewed - no changes required Jean Pierre Snyder MD social history E&M Job Status: R adele L tara with 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 Smoking History: Karoline grayson has never smoked. Jean Pierre nSyder MD social history revie wed E&M reviewed - no changes required Jean Pierre Snyder MD passive cigarette sm wallace exposure no Faith Cavazos smoking status Never smoker Faith Argueta drug use no Jean Pierre Snyder MD alcohol use, type beer Jean Pierre quintero MD alcohol use yes Jean Pierre Snyder MD social history E&M Job 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 Smoking History: Karoline grayson has never smoked. Jean Pierre Snyder MD social history revie wed E&M reviewed - no changes required Jean Pierre Snyder MD smoking status Never smoker Jean Pierre Snyder MD social history E&M Job Status: R adele L tara with 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 Smoking History: Karoline grayson has never smoked. Jean Pierre Snyder MD passive cigarette sm wallace exposure no Jean Pierre Snyder MD smoking status Never smoker Jean Pierre Snyder MD social history revie wed E&M reviewed - no changes required Jean Pierre Snyder MD drug use no Jean Pierre Snyder MD alcohol use, type beer Jean Pierre quintero MD alcohol use yes Jean Pierre Snyder MD social history E&M Job Status: R etired L tara with family/friends [place]: 2 childrenMarital Status: Karoline grayson has never smoked. Smoking History: Karoline grayson has never smoked. Jean Pierre Snyder MD social history revie wed E&M reviewed - no changes required Jean Pierre Snyder MD passive cigarette sm wallace exposure no Beth Harris smoking status Never smoker Beth craig drug use no Jean Pierre Snyder MD alcohol use, type beer Jean Pierre quintero MD alcohol use yes Jean Pierre Snyder MD social history E&M Job Status: R etired L tara with family/friends [place]: 2 childrenMarital Status: Karoline grayson has never smoked. Smoking History: Karoline grayson has never smoked. Jean Pierre Snyder MD social history revie wed E&M reviewed - no changes required Jean Pierre Snyder MD passive cigarette sm wallace exposure no Kathrine Louie smoking status Never smoker Kathrine Louie drug use no Jean Pierre Snyder MD alcohol use, type beer Jean Pierre quintero MD alcohol use yes Jean Pierre Snyder MD social history E&M Job Status: R etired L tara with family/friends [place]: 2 childrenMarital Status: P kenan has never smoked. Smoking History: P kenan has never smoked. Jean Pierre Snyder MD social history revie wed E&M reviewed - no changes required Jean Pierre Snyder MD passive cigarette sm wallace exposure no Kathrine [place] smoking status Never smoker Kathrine [place] drug use no Jean Pierre Snyder MD alcohol use, type beer Jean Pierrezehra De La Fuentey ingrid MEJIA alcohol use yes Jean Pierre Snyder MD social history E&M Job 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 Smoking History: P kenan has never smoked. 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 Smoking History: P kenan has never smoked. Jean Pierre Snyder MD social history revie wed E&M reviewed - no changes required Jean Pierre Snyder MD smoking status Never smoker Jean Pierrezehra Snyder MD social history E&M Job Status: R adele L tara with 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 Smoking History: P kenan has never smoked. Giovanni Palacio social history revie wed E&M reviewed - no changes required Giovanni Palacio passive cigarette sm wallace exposure no Luz Elena Gold smoking status Never smoker Luz Elena Tamiko dyson social history E&M Job Status: R adele pacheco with family/friends [place]: 2 childrenMarital Status: P kenan has never smoked. Smoking History: P kenan has never smoked. 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 Smoking History: Karoline grayson has never smoked. 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 Smoking History: Karoline grayson has never smoked. 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 Smoking History: Karoline grayson has never smoked. Jean Pierre Snyder MD social history revie wed E&M reviewed - no changes required Jean Pierre Snyder MD alcohol use, type beer Juni Parikh alcohol use yes Juni pacheco drug use no Juni pacheco passive cigarette sm wallace exposure no Juni Parikh smoking status Never smoker Juni Mondragon social history revie wed E&M reviewed - no changes required Jean Pierre Snyder MD social history E&M Job 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 Smoking History: Karoline grayson has never smoked. Jean Pierre Snyder MD alcohol use, type beer Ana Luisa snyder alcohol use yes Ana Luisa Calix lder drug use no Ana Luisa Calix lder passive cigarette sm wallace exposure no Ana Luisa Zavala smoking status Never smoker Ana Luisa ulloa social history E&M Job Status: Anthony angulo Zana tara with family/friends [place]: 2 childrenMarital Status: Karoline grayson has never smoked. Smoking History: Karoline grayson has never smoked. Jean Pierre Snyder MD social history revie wed E&M reviewed - no changes required Jean Pierre Snyder MD alcohol use, type beer Ana Luisa snyder alcohol use yes Ana Luisa manueler drug use no Ana Luisa Fifi lder passive cigarette sm wallace exposure no Ana Luisa Zavala smoking status Never smoker Ana Luisa ulloa quit smoking, stage quit Bernard santos MD social history E&M Job 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 Smoking History: P [place] has never smoked. Bernard Gutierrez MD social history revie wed E&M reviewed - no changes required Bernard Gutierrez MD alcohol use, type beer Ana Luisa Toth claudio alcohol use yes Ana Luisa Bernsteinsloan manueler drug use no Ana Luisa Calix lder passive cigarette sm wallace exposure no Ana Luisa Tothleslieisabeljose carlos smoking status Never smoker Ana Luisa Justine ulloa smoking status Never smoker Jean Pierre Snyder MD social history E&M Job Status: Anthony pacheco with family/friends [place]: 2 childrenMarital Status: P kenan has never smoked. Smoking History: P [place] has never smoked. Jean Pierre Snyder MD social history revie wed E&M reviewed - no changes required Jean Pierre Snyder MD alcohol use, type beer Ana Luisa Toth claudio alcohol use yes Ana Luisa Fifi goff drug use no Ana Luisa Bernsteinimerwade er passive cigarette sm wallace exposure no Ana Luisa Lucas number of grandchildren Jean Pierre Snyder MD U ana maria Snyder MD smoking status Never smoker Jean Pierre Snyder MD social history E&M Job 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 Smoking History: P kenan has never smoked. Jean Pierre Snyder MD social history revie wed E&M reviewed - no changes required Jean Pierre Snyder MD alcohol use, type beer Juni Parikh alcohol use yes Juni pacheco drug use no Juni pacheco passive cigarette sm wallace exposure no Juni Roenson number of grandchildren Conrado Beckford MD social history revie wed E&M reviewed - no changes required Conrado Beckford MD alcohol use, type beer Ana Luisa nelsonnfelder alcohol use yes Ana Luisa Calix lder drug use no Ana Luisa Calix lder passive cigarette sm wallace exposure no Ana Luisa Ornelasnfelder smoking status Never smoker Ana Luisa Fletcher laila social history revie wed E&M reviewed - no changes required Jean Pierre Snyder MD alcohol use, type beer Juni Roenson alcohol use yes Juni Zamudio nson drug use no Juni Zamudio nson passive cigarette sm wallace exposure no Juni Roenson smoking status Never smoker Juni Ortiz solange social history revie wed E&M reviewed - no changes required Jean Pierre Snyder MD alcohol use, type beer Jovana Gabriel Christie alcohol use yes Jovana Lockett drug use no Jovana Patelann passive cigarette sm wallace exposure no Jovana Lockett smoking status Never smoker Jovana Patelnarciso middleton number of grandchildren Jean Pierre Snyder MD U ana maria Snyder MD social history revie wed E&M reviewed - no changes required Jean Pierre Snyder MD alcohol use, type beer Juniemi Parikh alcohol use yes Juni Zamudio nson drug use no Juni Zamudio nson passive cigarette sm wallace exposure no Juni Parikh smoking status Never smoker Juni Ortiz keshavson social history revie wed E&M reviewed - no changes required Jean Pierre Snyder MD alcohol use yes Ana Luisa Calix shell smoking status Never smoker Ana Luisa Fletcher laila social history revie wed E&M reviewed - no changes required Jean Pierre Snyder MD alcohol use, type beer Jovana Rios Pratik alcohol use yes Jovana Lockett drug use no Jovana Lockett passive cigarette sm wallace exposure no Jovana Lockett smoking status Never smoker Jovana López n social history revie wed E&M reviewed - no changes required Jean Pierre Snyder MD alcohol use, type beer Jovana Kavin ahmadi alcohol use yes Jovana Bautista drug use no Jovana Bautista passive cigarette sm wallace exposure no Jovana Bautista smoking status Never smoker Jovana Bautista social history E&M Job Status: R etired L tara with 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 Smoking History: Karoline grayson has never smoked. Jean Pierre Snyder MD social history revie wed E&M reviewed - no changes required Jean Pierre Snyder MD alcohol use, type beer Jean Pierre quintero MD drug use no Jean Pierre Snyder MD passive cigarette sm wallace exposure no Jean Pierre Snyder MD smoking status Never smoker Jean Pierre Snyder MD drug use no Chet Taylor RN passive cigarette sm wallace exposure no Chet Taylor RN social history revie wed E&M reviewed Chet Taylor RN drug use none Jean Pierre Snyder MD social history revie wed E&M reviewed Chet Taylor RN social history E&M J ob Status: Retired L tara with family/friends [place]: 2 childrenMarital Status: Digna Sanchez number of children 2 children Dignadebra Lackey mj alcohol use, type beer Digna Calderón adenike smoking status never smoker Chet Taylor RN smoking status never Marleneclaudy BaxterVaz FUNCTIONAL STATUS Date Observation Value Provider HRA, CV Assess/Plan, Angina (inactive) Management Plan continue current therapy Olga Shubhamalejandro [address] MAGISTRATE HRA, CV Assess/Plan, Angina (inactive) Management Plan continue current therapy Jean Pierre Snyder MD HRA, CV Assess/Plan, Angina (inactive) Management Plan continue current therapy Jean Pierre Snyder MD HRA, CV Assess/Plan, Angina (inactive) Management Plan continue current therapy Jean Pierre Snyder MD HRA, CV Assess/Plan, Angina (inactive) Management Plan continue current therapy Jean Pierre Snyder MD HRA, CV Assess/Plan, Angina (inactive) Management Plan continue current therapy Jean Pierre Snyder MD HRA, CV Assess/Plan, Angina (inactive) Management Plan continue current therapy Jean Pierre Snyder MD HRA, CV Assess/Plan, Angina (inactive) Management Plan continue current therapy Jean Pierre Snyder MD HRA, CV Assess/Plan, Angina (inactive) Management Plan continue current therapy Jean Pierre Snyder MD HRA, CV Assess/Plan, Angina (inactive) Management Plan continue current therapy Jean Pierre Snyder MD HRA, CV Assess/Plan, Angina (inactive) Management Plan continue current therapy Jean Pierre Snyder MD HRA, CV Assess/Plan, Angina (inactive) Management Plan continue current therapy Jean Pierre Snyder MD HRA, CV Assess/Plan, Angina (inactive) Management Plan continue current therapy Lexis Sanchez HRA, CV Assess/Plan, Angina (inactive) Management Plan continue current therapy Bernard Gutierrez MD HRA, CV Assess/Plan, Angina (inactive) Management Plan continue current therapy Jean Pierre Snyder MD HRA, CV Assess/Plan, Angina (inactive) Management Plan continue current therapy Jean Pierre Snyder MD HRA, CV Assess/Plan, Angina (inactive) Management Plan continue current therapy Conrado Beckford MD HRA, CV Assess/Plan, Angina (inactive) Management Plan continue current therapy Jean Pierre Snyder MD HRA, CV Assess/Plan, Angina (inactive) Management Plan continue current therapy Jean Pierre Snyder MD HRA, CV Assess/Plan, Angina (inactive) Management Plan continue current therapy Jean Pierre Snyder MD periodic limb moveme nt index absent (0) Marlene Vaz MENTAL STATUS Date Observation Value Provider assessment of judgme nt and insight E&M Alert and oriented to time, place and person. Mood and affect are normal. Chet Taylor RN assessment of judgme nt and insight E&M Alert and oriented to time, place and person. Mood and affect are normal. Chet Taylor RN FAMILY HISTORY Family Member Condition Father Family History Unkno wn Mother Negative FH of Diabe berhane, Hypertension, or Coronary Artery Disease INSURANCE PROVIDERS Payer name Policy type / Coverage type [employer] party ID AARP MEDICARE ADVANTAGE ([facility] COMPLETE PPO) Other [id number] ADVANCE DIRECTIVES Name Date DISCUSSED - NO DECISION MADE TREATMENT PLAN Date Name Performer [id number],C,d onig well. fairly normal gradients for prostetic valve Jean Pierre Snyder MD [id number],C,T he patient is using CPAP on a regular basis. The patient has been benefiting from therapy and should continue use. Jean Pierre Snyder MD [id number],S,N ormally doesn't have high BP B P today: 166/64 P rior BP: 125/55 (08/26/2021) Prior 10 Yr Risk Heart Disease: Not enough information (02/23/2010) Labs Reviewed: C reat: 1.11 (07/13/2017) C hol: 146 (07/13/2017) HDL: 32 (07/13/2017) His updated medication list for this problem includes: Adult Aspirin Regimen 81 Mg Tablet,delayed Release (dr/ec) (Aspirin) ..... Take 1 tablet by mouth once a day Carvedilol 12.5 Mg Tablet (Carvedilol) ..... Take 1 tablet by mouth twice a day Doxazosin 4 Mg Tablet (Doxazosin) ..... Take 1 tablet by mouth once a day Verapamil 120 Mg Tablet Extended Release (Verapamil) ..... Take 1 tablet by mouth once a day Furosemide 40 Mg Tablet (Furosemide) ..... Take one tablet by mouth every day Jean Pierre Snyder MD [id number],C,W ell controlled with compression. 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 Take 1 tablet by mouth once a day Carvedilol 12.5 Mg Tablet (Carvedilol) ..... Take 1 tablet by mouth twice a day Doxazosin 4 Mg Tablet (Doxazosin) ..... Take 1 tablet by mouth once a day Verapamil 120 Mg Tablet Extended Release (Verapamil) ..... Take 1 tablet by mouth once a day Furosemide 40 Mg Tablet (Furosemide) ..... Take one tablet by mouth every day Jean Pierre Snyder MD [id number],S,S table. Continue medical therapy. Jean Pierre Snyder MD [id number],S, Jean Pierre Snyder MD [id number],C,Continue medi polo therapy Jean Pierre Snyder MD [id number],S, Jean Pierre Snyder MD [id number],C,D oing well after the TAVR. Repeat his echo Jean Pierre Snyder MD [id number],C,W ears compression stockings and uses power chair. No complaint of leg numbess today, and swelling reduced from socks Jean Pierre Snyder MD [id number],C,W ell controlled on mediaction, will order Holter Monitor B P today: 123/62 P rior BP: 151/74 (12/24/2020) Prior 10 Yr Risk Heart Disease: Not enough information (02/23/2010) Labs Reviewed: C reat: 1.11 (07/13/2017) C hol: 146 (07/13/2017) HDL: 32 (07/13/2017) Jean Pierre Snyder MD [id number],C,HR 82 today U ana maria Snyder MD [id number],B,S ome SOB, but still improved O rders: 9 9214 MOD 30-39min (CPT-41668) H olter Monitor 48 hr (CPT-13995) Jean Pierre Snyder MD [id number],B,N o Compliant today O rders: 9 9214 MOD 30-39min (CPT-40482) H olter Monitor 48 hr (CPT-12032) Jean Pierre Snyder MD [id number],S,SOB on exerti on Jean Pierre Snyder MD [id number],S, Jean Pierre Snyder MD [id number],S, H is updated medication list for this problem includes: Carvedilol 12.5 Mg Tablet (Carvedilol) ..... Take one tablet by mouth twice daily Doxazosin 4 Mg Tablet (Doxazosin) ..... Take 1 tablet by mouth once a day Verapamil 120 Mg Tablet Extended Release (Verapamil) ..... Take 1 tablet by mouth once a day Furosemide 40 Mg Tablet (Furosemide) ..... Take 1 tablet by mouth once a day Adult Aspirin Regimen 81 Mg Tablet,delayed Release (dr/ec) (Aspirin) ..... Take 1 tablet by mouth once a day BP today: 151/74 P rior BP: 158/70 (06/25/2020) P rior 10 Yr Risk Heart Disease: Not enough information (02/23/2010) Labs Reviewed: C reat: 1.11 (07/13/2017) C hol: 146 (07/13/2017) HDL: 32 (07/13/2017) Jean Pierre Snyder MD [id number],S, H is updated medication list for this problem includes: Atorvastatin 10 Mg Tablet (Atorvastatin) ..... Take 1 tablet by mouth every other day Jean Pierre Snyder MD Cardiology:BP contro lled [place] present medication regimen H is updated medication list for this problem includes: Lisinopril 20 Mg Tablet (Lisinopril) ..... Take 1 tablet by mouth once daily Verapamil 120 Mg Tablet Extended Release (Verapamil) ..... Take 1 tablet by mouth once a day Doxazosin 4 Mg Tablet (Doxazosin) ..... Take 1 tablet by mouth every day Furosemide 40 Mg Tablet (Furosemide) ..... Take 1 tablet by mouth every day Aspirin 81 Mg Tablet,delayed Release (dr/ec) (Aspirin) ..... Take 1 tablet by mouth every day [facility] Cardiology:last echo showed normal appearing bioprosthetic valve. [facility] Cardiology:compensat ed [place] present medication regimen H is updated medication list for this problem includes: Lisinopril 20 Mg Tablet (Lisinopril) ..... Take 1 tablet by mouth once daily Verapamil 120 Mg Tablet Extended Release (Verapamil) ..... Take 1 tablet by mouth once a day Furosemide 40 Mg Tablet (Furosemide) ..... Take 1 tablet by mouth every day Aspirin 81 Mg Tablet,delayed Release (dr/ec) (Aspirin) ..... Take 1 tablet by mouth every day [facility] Cardiology:persisten t SOB etiology remains unclear H is LHC showed patent stent and mild plaque H is pBNP was 131 H e is not anemic W ould recommend repeat sleep study His updated medication list for this problem includes: Lisinopril 20 Mg Tablet (Lisinopril) ..... Take 1 tablet by mouth once daily Verapamil 120 Mg Tablet Extended Release (Verapamil) ..... Take 1 tablet by mouth once a day Furosemide 40 Mg Tablet (Furosemide) ..... Take 1 tablet by mouth every day Aspirin 81 Mg Tablet,delayed Release (dr/ec) (Aspirin) ..... Take 1 tablet by mouth every day [facility] Cardiology:He has CP AP and has had >15 years g iven continued fatigue and SOB would recommend f/u sleep study [facility] Cardiology:weight loss encourage d Olga Silver [facility] Cardiology Jean Pierre Snyder MD Cardiology:Will gera t medically, check pressures with R hrt cath D c coreg and add lisinopril Jean Pierre Snyder MD Cardiology: T he following medications were removed from the medication list: Carvedilol 12.5 Mg Tablet (Carvedilol) ..... Take 1 tablet by mouth twice a day His updated medication list for this problem includes: Lisinopril 20 Mg Tablet (Lisinopril) ..... Take 1 tablet by mouth once daily Verapamil 120 Mg Tablet Extended Release (Verapamil) ..... Take 1 tablet by mouth once a day Doxazosin 4 Mg Tablet (Doxazosin) ..... Take 1 tablet by mouth every day Furosemide 40 Mg Tablet (Furosemide) ..... Take 1 tablet by mouth every day Aspirin 81 Mg Tablet,delayed Release (dr/ec) (Aspirin) ..... Take 1 tablet by mouth every day Jean Pierre Snyder MD Cardiology:baseline sob, mid exacerbation with stress w ill perform R hrt cath as well Jean Pierre Snyder MD Cardiology Jean Pierre Snyder MD Cardiology:stress abnormal, will arrange angiogram Jean Pierre Snyder MD Cardiology:His PET C T stress was abnormal and consistent with ischemia in the anterior wall, will plan to do R/L hrt cath to fully assess this finding The risks and benefits of the procedure, including but not limited the risk of heart attack, , stroke, bleeding, kidney failure, and loss of limb as well as the alternative of continued medical therapy, stress testing or bypass surgery were discussed with the patient and any present family members and the patient wishes to proceed with cardiac cath and stenting. The patient and family had opportunity to discuss this with us. Written material including informed consent was given out. Jean Pierre Snyder MD Cardiology:as above Jean Pierre Snyder MD Cardiology Jean Pierre Snyder MD Cardiology:atypical with SOB. could be anginal equivalent so will check a pet stress. This visit has been a part of the consistent, comprehensive, and ongoing management of the chronic medical condition(s) listed above for the patient. The pt is unable to walk on the treadmill. BMI greater than 35. Jean Pierre Snyder MD Cardiology:Will chec k a CHF panel due to persistent SOB Jean Pierre Snyder MD Cardiology: H is updated medication list for this problem includes: Atorvastatin 10 Mg Tablet (Atorvastatin) ..... Take 1 tablet by mouth once a day Jean Pierre Snyder MD Cardiology: B P today: 141/65 P rior BP: 148/64 (03/02/2023) Prior 10 Yr Risk Heart Disease: Not enough information (02/23/2010) Labs Reviewed: C reat: 1.11 (07/13/2017) Chol: 146 (07/13/2017) HDL: 32 (07/13/2017) LDL: 62 (07/13/2017) T (07/13/2017) His updated medication list for this problem includes: Furosemide 40 Mg Tablet (Furosemide) ..... Take 1 tablet by mouth once a day Verapamil 120 Mg Tablet Extended Release (Verapamil) ..... Take 1 tablet by mouth every day Doxazosin 4 Mg Tablet (Doxazosin) ..... Take 1 tablet by mouth every day Carvedilol 12.5 Mg Tablet (Carvedilol) ..... Take 1 tablet by mouth twice a day Aspirin 81 Mg Tablet,delayed Release (dr/ec) (Aspirin) ..... Take 1 tablet by mouth every day Jean Pierre Snyder MD Cardiology:Stable. N o CP His updated medication list for this problem includes: Verapamil 120 Mg Tablet Extended Release (Verapamil) ..... Take 1 tablet by mouth every day Carvedilol 12.5 Mg Tablet (Carvedilol) ..... Take 1 tablet by mouth twice a day Aspirin 81 Mg Tablet,delayed Release (dr/ec) (Aspirin) ..... Take 1 tablet by mouth every day Jean Pierre Snyder MD Cardiology Jean Pierre Snyder MD Cardiology: H is updated medication list for this problem includes: Atorvastatin 10 Mg Tablet (Atorvastatin) ..... Take 1 tablet by mouth once a day Jean Pierre Snyder MD Cardiology: H is updated medication list for this problem includes: Verapamil 120 Mg Tablet Extended Release (Verapamil) ..... Take 1 tablet by mouth every day Doxazosin 4 Mg Tablet (Doxazosin) ..... Take 1 tablet by mouth every day Carvedilol 12.5 Mg Tablet (Carvedilol) ..... Take 1 tablet by mouth twice a day Aspirin 81 Mg Tablet,delayed Release (dr/ec) (Aspirin) ..... Take 1 tablet by mouth every day Furosemide 40 Mg Tablet (Furosemide) ..... Take 1 tablet by mouth once a day take one tablet by mouth every day BP today: 148/64 P rior BP: 129/74 (09/01/2022) Prior 10 Yr Risk Heart Disease: Not enough information (02/23/2010) Labs Reviewed: C reat: 1.11 (07/13/2017) C hol: 146 (07/13/2017) HDL: 32 (07/13/2017) LDL: 62 (07/13/2017) T (07/13/2017) Jean Pierre Snyder MD Cardiology:The patie nt is using CPAP on a regular basis. The patient has been benefiting from therapy and should continue use. Jean Pierre Snyder MD Cardiology: S table. Continue medical therapy. Jean Pierre Snyder MD Cardiology:s/p TAVR e cho in 6 mo Jean Pierre Snyder MD Cardiology:amaury wilburn fairly normal gradients for prostetic valve Jean Pierre Snyder MD Cardiology:The patie nt is using CPAP on a regular basis. The patient has been benefiting from therapy and should continue use. Jean Pierre Snyder MD Cardiology:Normally doesn't have high BP B P today: 166/64 P rior BP: 125/55 (08/26/2021) Prior 10 Yr Risk Heart Disease: Not enough information (02/23/2010) Labs Reviewed: Creat: 1.11 (07/13/2017) C hol: 146 (07/13/2017) HDL: 32 (07/13/2017) His updated medication list for this problem includes: Adult Aspirin Regimen 81 Mg Tablet,delayed Release (dr/ec) (Aspirin) ..... Take 1 tablet by mouth once a day Carvedilol 12.5 Mg Tablet (Carvedilol) ..... Take 1 tablet by mouth twice a day Doxazosin 4 Mg Tablet (Doxazosin) ..... Take 1 tablet by mouth once a day Verapamil 120 Mg Tablet Extended Release (Verapamil) ..... Take 1 tablet by mouth once a day Furosemide 40 Mg Tablet (Furosemide) ..... Take one tablet by mouth every day Jean Pierre Snyder MD Cardiology:Well controlled with compression. Jean Pierre Snyder MD Cardiology:Possibili ty of increased right-sided pressures with exercise Jean Pierre Snyder MD Cardiology: B P today: 166/64 P rior BP: 125/55 (08/26/2021) Prior 10 Yr Risk Heart Disease: Not enough information (02/23/2010) Labs Reviewed: C reat: 1.11 (07/13/2017) Chol: 146 (07/13/2017) HDL: 32 (07/13/2017) His updated medication list for this problem includes: Adult Aspirin Regimen 81 Mg Tablet,delayed Release (dr/ec) (Aspirin) ..... Take 1 tablet by mouth once a day Carvedilol 12.5 Mg Tablet (Carvedilol) ..... Take 1 tablet by mouth twice a day Doxazosin 4 Mg Tablet (Doxazosin) ..... Take 1 tablet by mouth once a day Verapamil 120 Mg Tablet Extended Release (Verapamil) ..... Take 1 tablet by mouth once a day Furosemide 40 Mg Tablet (Furosemide) ..... Take one tablet by mouth every day Jean Pierre Snyder MD Cardiology:Stable. Continue medi polo therapy. Jean Pierre Snyder MD Cardiology Jean Pierre Snyder MD Cardiology:Continue medical ther apy Jean Pierre Snyder MD Cardiology Jean Pierre Snyder MD Cardiology:Doing wel l after the TAVR. Repeat his echo Jean Pierre Snyder MD Cardiology:Wears com pression stockings and uses power chair. No complaint of leg numbess today, and swelling reduced from socks Jean Pierre Snyder MD Cardiology:Well cont rolled on mediaction, will order Holter Monitor B P today: 123/62 P rior BP: 151/74 (12/24/2020) Prior 10 Yr Risk Heart Disease: Not enough information (02/23/2010) L abs Reviewed: C reat: 1.11 (07/13/2017) C hol: 146 (07/13/2017) HDL: 32 (07/13/2017) Jean Pierre Snyder MD Cardiology:HR 82 today Jean Pierre roberson MD Cardiology:Some SOB, but still improved O rders: 9 9214 MOD 30-39min (CPT-03270) H olter Monitor 48 hr (CPT-44375) Jean Pierre Snyder MD Cardiology:No Compli ant today O rders: 9 9214 MOD 30-39min (CPT-73116) H olter Monitor 48 hr (CPT-47868) Jean Pierre Snyder MD Cardiology:SOB on exertion Jean Pierre Snyder MD Cardiology Jean Pierre Snyder MD Cardiology: H is updated medication list for this problem includes: Carvedilol 12.5 Mg Tablet (Carvedilol) ..... Take one tablet by mouth twice daily Doxazosin 4 Mg Tablet (Doxazosin) ..... Take 1 tablet by mouth once a day Verapamil 120 Mg Tablet Extended Release (Verapamil) ..... Take 1 tablet by mouth once a day Furosemide 40 Mg Tablet (Furosemide) ..... Take 1 tablet by mouth once a day Adult Aspirin Regimen 81 Mg Tablet,delayed Release (dr/ec) (Aspirin) ..... Take 1 tablet by mouth once a day BP today: 151/74 P rior BP: 158/70 (06/25/2020) Prior 10 Yr Risk Heart Disease: Not enough information (02/23/2010) Labs Reviewed: C reat: 1.11 (07/13/2017) C hol: 146 (07/13/2017) HDL: 32 (07/13/2017) Jean Pierre Snyder MD Cardiology: H is updated medication list for this problem includes: Atorvastatin 10 Mg Tablet (Atorvastatin) ..... Take 1 tablet by mouth every other day Jean Pierre Snyder MD Cardiology:The patie nt is using CPAP on a regular basis. The patient has been benefiting from therapy and should continue use. Jean Pierre Snyder MD Cardiology: H is updated medication list for this problem includes: Atorvastatin 10mg * Tab Acco (Atorvastatin calcium) ..... Take one tablet by mouth every other day Jean Pierre Snyder MD Cardiology: B P today: 158/70 P rior BP: 140/70 (04/16/2020) Prior 10 Yr Risk Heart Disease: Not enough information (02/23/2010) Labs Reviewed: C reat: 1.11 (07/13/2017) C hol: 146 (07/13/2017) HDL: 32 (07/13/2017) Jean Pierre Snyder MD Cardiology:Patient h as some LE edema that improves with compression socks Jean Pierre Snyder MD Cardiology: A ppears to be stable. Continue medical therapy. Jean Pierre Snyder MD Cardiology:S/p TAVR. Valve appears to be functioning as expected per echo today. Has very minimal gradient across it. We will just continue to monitor. Jean Pierre Snyder MD Cardiology Jean Pierre Snyder MD Cardiology: H is updated medication list for this problem includes: Atorvastatin 10mg * Tab Acco (Atorvastatin calcium) ..... Take one tablet by mouth every other day Jean Pierre Snyder MD Cardiology: A ppears to be stable. Continue medical therapy. Jean Pierre Snyder MD Cardiology: P atient is s/p TAVR, doing well overall. Jean Pierre Snyder MD Cardiology:Patient p resented to [facility] ER 04/15/2020 with chest discomfort. Workup was completely normal. Will continue medical therapy for his CAD Jean Pierre Snyder MD Cardiology: B P today: 140/80 P rior BP: 149/51 (12/05/2019) Prior 10 Yr Risk Heart Disease: Not enough information (02/23/2010) Labs Reviewed: C reat: 1.11 (07/13/2017) C hol: 146 (07/13/2017) HDL: 32 (07/13/2017) Jean Pierre Snyder MD Cardiology:The patie nt is using CPAP on a regular basis. The patient has been benefiting from therapy and should continue use. Jean Pierre Snyder MD Cardiology Jean Pierre Snyder MD Cardiology: P atient is s/p TAVR, doing well overall. Jean Pierre Snyder MD Cardiology: A ppears to be stable. Continue medical therapy. Jean Pierre Snyder MD Cardiology:No recurr ance since his hospital visit 01/22/2020. Is tolerating Verapamil. Will continue him on his current medds and if this fails we will refer him to EP. H is updated medication list for this problem includes: Verapamil Hcl Er 120 Mg Oral Tablet Extended Release (Verapamil hcl) ..... Take one tablet by mouth once daily Clopidogrel Bisulfate 75 Mg Oral Tablet (Clopidogrel bisulfate) ..... Take one tablet by mouth once daily Adult Aspirin Regimen 81 Mg Oral Tablet Delayed Release (Aspirin) ..... Take one tablet by mouth once daily Jean Pierre Snyder MD Cardiology: A ppears to be stable. Continue medical therapy. Jean Pierre Snyder MD Cardiology: C ontinue compression stockings Jean Pierre Snyder MD Cardiology: H is updated medication list for this problem includes: Atorvastatin 10mg * Tab Acco (Atorvastatin calcium) ..... Take one tablet by mouth every other day Jean Pierre Snyder MD Cardiology: B P today: 149/51 P rior BP: 159/72 (10/31/2019) Prior 10 Yr Risk Heart Disease: Not enough information (02/23/2010) Labs Reviewed: C reat: 1.11 (07/13/2017) C hol: 146 (07/13/2017) HDL: 32 (07/13/2017) Jean Pierre Snyder MD Cardiology: B P today: 159/72 P rior BP: 148/72 (10/09/2019) Prior 10 Yr Risk Heart Disease: Not enough information (02/23/2010) Labs Reviewed: C reat: 1.11 (07/13/2017) C hol: 146 (07/13/2017) HDL: 32 (07/13/2017) Jean Pierre Snyder MD Cardiology Jean Pierre Snyder MD Cardiology:Patient is s/p TAVR, doing well overall. Jean Pierre Snyder MD Cardiology:Patient h ad an episode of palpitations and low BP that made him to go [facility]. Vitals in ER were stable and testing was negative. Will increase coreg to 12.5 once daily and obtain even monitor. Jean Pierre Snyder MD Cardiology: C ontinue compression stockings Jean Pierre Snyder MD Cardiology Jean Pierre Snyder MD Cardiology: B P today: 148/72 P rior BP: 133/67 (07/03/2019) Prior 10 Yr Risk Heart Disease: Not enough information (02/23/2010) Labs Reviewed: C reat: 1.11 (07/13/2017) C hol: 146 (07/13/2017) HDL: 32 (07/13/2017) Jean Pierre Snyder MD Cardiology: A ppears to be stable. Continue medical therapy. Jean Pierre Snyder MD Cardiology:Patient i s s/p TAVR. Incision site in groin continues to heal. Denies SOB, palpitations. Discussed that patient is able to drive and carry on with daily activity. Do not advise cardiac rehab, but do advise that the patient gradually increase physically activity. had issues with rythmn following procedure. Will obtain Jean Pierre Snyder MD Cardiology follow up :Per PCP. Continue with low-carb diet. Giovanni Palacio Cardiology follow up : H is updated medication list for this problem includes: Lipitor 10 Mg Oral Tablet (Atorvastatin calcium) ..... 1 tab every other day Giovanni Palacio Cardiology follow up :Awaiting TAVR. Had been delayed due to coronavirus pandemic. Giovanni Palacio Cardiology follow up : B P today: 133/67 P rior BP: 140/76 (04/28/2019) Prior 10 Yr Risk Heart Disease: Not enough information (02/23/2010) Labs Reviewed: C reat: 1.11 (07/13/2017) C hol: 146 (07/13/2017) HDL: 32 (07/13/2017) Giovanni Palacio Cardiology hospital follow up :s/p cardiac cath 04/08/19. Had severe by hemodynamic perameters. He however, has lost about 20 lbs and feels much better. Will continue new keto diet and we will see him in 2-3 months and see how he feels. Jean Pierre Snyder MD Cardiology hospital follow up :Per PCP. Continue low-carb diet. Jean Pierre Snyder MD Cardiology hospital follow up : H is updated medication list for this problem includes: Lipitor 10 Mg Oral Tablet (Atorvastatin calcium) ..... 1 tab every other day Jean Pierre Snyder MD Cardiology hospital follow up : B P today: 140/76 P rior BP: 126/74 (03/24/2019) Prior 10 Yr Risk Heart Disease: Not enough information (02/23/2010) Labs Reviewed: C reat: 1.11 (07/13/2017) C hol: 146 (07/13/2017) HDL: 32 (07/13/2017) Jean Pierre Snyder MD Cardiology hospital follow up :Appears to be stable. Continue medical therapy. Jean Pierre Snyder MD Cardiology: B P today: 126/74 P rior BP: 120/70 (09/05/2018) Prior 10 Yr Risk Heart Disease: Not enough information (02/23/2010) Labs Reviewed: C reat: 1.11 (07/13/2017) C hol: 146 (07/13/2017) HDL: 32 (07/13/2017) Jean Pierre Snyder MD Cardiology Jean Pierre Snyder MD Cardiology Jean Pierre Snyder MD Cardiology:Appears t o have progressed and is at least moderate now. I would like to do a R and L heart cath to assess the aortic valve. He has quite a bit of SOB on exertion, but it is unclear if this is due to weight or progression of aortic stenosis. Jean Pierre Snyder MD Cardiology:Will repeat echo at s ix month visit Jean Pierre Snyder MD Cardiology Jean Pierre Snyder MD Cardiology:Continue compression stockings Jean Pierre Snyder MD Cardiology Jean Pierre Snyder MD Cardiology: B P today: 120/70 P rior BP: 148/71 (02/15/2018) Prior 10 Yr Risk Heart Disease: Not enough information (02/23/2010) Labs Reviewed: C reat: 1.11 (07/13/2017) C hol: 146 (07/13/2017) HDL: 32 (07/13/2017) Jean Pierre Snyder MD Cardiology:Appears s table His updated medication list for this problem includes: Carvedilol 25 Mg Oral Tablet (Carvedilol) ..... One tab twice daily Verapamil Hcl Er 120 Mg Oral Capsule Extended Release 24 Hour (Verapamil hcl) ..... One tab daily Aspirin Ec 325 Mg Oral Tablet Delayed Release (Aspirin) ..... Take one pill a day Jean Pierre Snyder MD Cardiology:per Dr. Peter lagunas MD Cardiology:Stable. No complaints . Jean Pierre Snyder MD Cardiology:continues to wear com pression stockings. Jean Pierre Snyder MD Cardiology Jean Pierre Snyder MD Cardiology Follow up : H is updated medication list for this problem includes: Carvedilol 25 Mg Oral Tablet (Carvedilol) ..... One tab twice daily Verapamil Hcl Er 120 Mg Oral Capsule Extended Release 24 Hour (Verapamil hcl) ..... One tab daily Aspirin Ec 325 Mg Oral Tablet Delayed Release (Aspirin) ..... Take one pill a day Jean Pierre Snyder MD Cardiology Follow up :Improved w ith compression. Jean Pierre Snyder MD Cardiology Follow up :WIll check vitamin D levels prior to next follow up. Jean Pierre Snyder MD Cardiology Follow up :Patient is scheduled to undergo cataract surgery and is low risk and cleared from a cardiovascular standpoint. Jean Pierre Snyder MD Cardiology Follow up Jean Pierre figueroa MD Cardiology Follow up :This is neuropathy. He has distal tibial disease, but no indication to treat other than medically. Jean Pierre Snyder MD Cardiology Follow up : B P today: 126/60 P rior BP: 128/82 (07/12/2017) Prior 10 Yr Risk Heart Disease: Not enough information (02/23/2010) Labs Reviewed: C reat: 1.11 (07/13/2017) C hol: 146 (07/13/2017) HDL: 32 (07/13/2017) Jean Pierre Snyder MD Cardiology Follow up Jean Pierre figueroa MD Cardiology Follow up :Denies chest pains. S table. Jean Pierre Snyder MD Cardiology follow up : H is updated medication list for this problem includes: Carvedilol 25 Mg Oral Tablet (Carvedilol) ..... One tab twice daily Cardura 4 Mg Oral Tablet (Doxazosin mesylate) ..... 1 tab daily Lasix 40 Mg Oral Tablet (Furosemide) ..... 1 tab twice daily Verapamil Hcl Er 120 Mg Oral Capsule Extended Release 24 Hour (Verapamil hcl) ..... One tab daily Aspirin Ec 325 Mg Oral Tablet Delayed Release (Aspirin) ..... Take one pill a day BP today: 128/82 P rior BP: 120/80 (06/21/2017) Prior 10 Yr Risk Heart Disease: Not enough information (02/23/2010) Labs Reviewed: C reat: 0.9 (02/27/2015) C hol: 161.0 (02/27/2015) HDL: 36.0 (02/27/2015) T.0 (02/27/2015) Bernard Gutierrez MD Cardiology follow up : H is updated medication list for this problem includes: Lipitor 10 Mg Oral Tablet (Atorvastatin calcium) ..... 1 tab every other day C HOL: 161.0 (02/27/2015) HDL: 36.0 (02/27/2015) T.0 (02/27/2015) Bernard Gutierrez MD Cardiology follow up :will do di et pills Bernard Gutierrez MD Cardiology follow up : Ashley chicas has developed some discoloration on his Left leg. Ashley chicas wears compression stockings daily. p os standing venous doppler. Bernard Gutierrez MD Cardiology Follow up Jean Pierre figueroa MD Cardiology Follow up : B P today: 120/80 P rior BP: 134/67 (03/19/2017) Prior 10 Yr Risk Heart Disease: Not enough information (02/23/2010) Labs Reviewed: C reat: 0.9 (02/27/2015) C hol: 161.0 (02/27/2015) HDL: 36.0 (02/27/2015) T.0 (02/27/2015) Jean Pierre Snyder MD Cardiology Follow up :Refer to Jack Gutierrez. Jean Pierre Snyder MD Cardiology Follow up :Will check AUGUST. Jean Pierre Synder MD Cardiology Follow up :He has developed some discoloration on his Left leg. H e wears compression stockings daily. W ill check standing venous doppler. Jean Pierre Snyder MD Cardiology: B P today: 134/67 P rior BP: 132/52 (09/14/2016) Prior 10 Yr Risk Heart Disease: Not enough information (02/23/2010) Labs Reviewed: C reat: 0.9 (02/27/2015) C hol: 161.0 (02/27/2015) HDL: 36.0 (02/27/2015) T.0 (02/27/2015) Jean Pierre Snyder MD Cardiology Jean Pierre Snyder MD Cardiology Jean Pierre Snyder MD Cardiology:No chest pains. S OB due to deconditioning and weight. S table. Jean Pierre Snyder MD Cardiology:Patient i s compliant with compression stockings with improvement of swelling. Jean Pierre Snyder MD Cardiology Follow up :Chest pain free. Effort tolerance is somewhat limited by shortness of breath. Continues on ASA 325mg qD. Conrado Beckford MD Cardiology Follow up Conrado smith MD Cardiology Follow up :The patient is actively using CPAP on a regular basis. He/she has been benefiting from therapy and should continue use. Conrado Beckford MD Cardiology Follow up :Remains unchanged. Effort tolerance is somewhat limited. Conrado Beckford MD Cardiology Follow up :Recent echo shows peak gradient across aortic valve of 21.8mmHg and an aortic valve area of 3.1cm squared consistent with aortic sclerosis. Conrado Beckford MD Cardiology Follow up :Continues on statins. Conrado Beckford MD Cardiology: B P today: 130/60 P rior BP: 148/73 (12/17/2015) Prior 10 Yr Risk Heart Disease: Not enough information (02/23/2010) Labs Reviewed: C reat: 0.9 (02/27/2015) C hol: 161.0 (02/27/2015) HDL: 36.0 (02/27/2015) T.0 (02/27/2015) Jean Pierre Snyder MD Cardiology:He contin ues to wear compression stockings. Jean Pierre Snyder MD Cardiology Jean Pierre Snyder MD Cardiology:Stable bu t since it has been a year since his stent he can come off of his plavix and woud want him to continue his aspirin for life. Jean Pierre Snyder MD Cardiology:Stable. His updated medication list for this problem includes: Clopidogrel Bisulfate 75 Mg Oral Tabs (Clopidogrel bisulfate) ..... Take 1 tablet once a day. Carvedilol 25 Mg Tabs (Carvedilol) ..... One tab twice daily Verapamil Hcl Er 120 Mg Oral [id number] (Verapamil hcl) ..... One tab daily Aspirin Ec 325 Mg Oral Tbec (Aspirin) ..... Take one pill a day Jean Pierre Snyder MD Cardiology: H is updated medication list for this problem includes: Carvedilol 25 Mg Tabs (Carvedilol) ..... One tab twice daily Lasix 40 Mg Tabs (Furosemide) ..... 1 tab twice daily Verapamil Hcl Er 120 Mg Oral [id number] (Verapamil hcl) ..... One tab daily Aspirin Ec 325 Mg Oral Tbec (Aspirin) ..... Take one pill a day Jean Pierre Snyder MD Cardiology:148/73. W ill increase carvedilol 25mg His updated medication list for this problem includes: Carvedilol 25 Mg Tabs (Carvedilol) ..... One tab twice daily Cardura 4 Mg Tabs (Doxazosin mesylate) ..... 1 tab daily Lasix 40 Mg Tabs (Furosemide) ..... 1 tab twice daily Verapamil Hcl Er 120 Mg Oral [id number] (Verapamil hcl) ..... One tab daily Aspirin Ec 325 Mg Oral Tbec (Aspirin) ..... Take one pill a day Jean Pierre Snyder MD Cardiology:130/60 Jean Pierre Santiago Cardiology:Recommend weight loss . Jean Pierre Snyder MD Cardiology Jean Pierre Snyder MD Cardiology:Stable. D oing well. Cholesterol is well controlled. Cont DAPT. Jean Pierre Snyder MD Cardiology Hospital Follow up :Will refer pt for cardiac rehab Jean Pierre Snyder MD Cardiology Hospital Follow up : H is updated medication list for this problem includes: Lipitor 10 Mg Tabs (Atorvastatin calcium) ..... 1 tab every other day Jean Pierre Snyder MD Cardiology Hospital Follow up :Resolved since undergoing cardiac cath in 03/2015 Jean Pierre Snyder MD Cardiology:The risks and benefits of the procedure, including but not limited the risk of heart attack, , stroke, bleeding, kidney failure, and loss of limb as well as the alternative of continued medical therapy, stress testing or bypass surgery were discussed with the patient and any present family members and the patient wishes to proceed with cardiac cath and stenting. The patient and family had opportunity to discuss this with us. Written material including informed consent was given out. Jean Pierre Snyder MD Cardiology: B P today: 124/62 P rior BP: 143/79 (11/13/2014) Prior 10 Yr Risk Heart Disease: Not enough information (02/23/2010) Jean Pierre Snyder MD Cardiology: B P today: 143/79 P rior BP: 138/69 (10/24/2013) Jean Pierre Snyder MD Cardiology:Compliant with C-pap eJan Pierre Snyder MD Cardiology Jean Pierre Snyder MD Cardiology:TTE (06/2014) M oderate aortic stenosis. There is no aortic valve regurgitation. Peak AV velocity: 3.30 m/s. The A ortic Valve Peak Gradient is 43.00 mmHg. The Aortic Valve Mean Gradient is 30.00 mmHg. TTE (10/24/2013) T here is aortic valve calcification with mild aortic valve stenosis. Mild aortic valve r egurgitation. Peak AV velocity: 2.65 m/s. The Aortic Valve Peak Gradient is 28.10 m mHg. The Aortic Valve Mean Gradient is 16.80 mmHg. The HUGO is 1.6 cm2. Jean Pierre Snyder MD follow up:BP 138/69 His updated medication list for this problem includes: Adult Aspirin Ec Low Strength 81 Mg Tbec (Aspirin) ..... 1 tab daily Cardura 4 Mg Tabs (Doxazosin mesylate) ..... 1 tab daily Lasix 40 Mg Tabs (Furosemide) ..... 1 tab daily Verapamil Hcl Er 240 Mg [id number] (Verapamil hcl) ..... 1 capsule daily Aspirin 81 Mg Tabs (Aspirin) ..... One tab. daily Jean Pierre Snyder MD test results : H is updated medication list for this problem includes: Adult Aspirin Ec Low Strength 81 Mg Tbec (Aspirin) ..... 1 tab daily Verapamil Hcl Er 240 Mg [id number] (Verapamil hcl) ..... 1 capsule daily Aspirin 81 Mg Tabs (Aspirin) ..... One tab. daily BP today: / Prior BP: 138/74 (09/19/2012) N uclear Stress Findings: 1. Normal myocardial perfusion imaging after vasodilator stress with Regadenoson. 2 . Normal left ventricular systolic function with a calculated ejection fraction of 68%. 3 . No obvious significant scintigraphic evidence of myocardial ischemia or scar. - GC (09/25/2012) Jean Pierre Snyder MD test results : H is updated medication list for this problem includes: Lipitor 10 Mg Tabs (Atorvastatin calcium) ..... 1 tab daily BP today: / Prior BP: 138/74 (09/19/2012) Jean Pierre Snyder MD test results : H is updated medication list for this problem includes: Adult Aspirin Ec Low Strength 81 Mg Tbec (Aspirin) ..... 1 tab daily Verapamil Hcl Er 240 Mg [id number] (Verapamil hcl) ..... 1 capsule daily Aspirin 81 Mg Tabs (Aspirin) ..... One tab. daily BP today: / Prior BP: 138/74 (09/19/2012) N uclear Stress Findings: 1. Normal myocardial perfusion imaging after vasodilator stress with Regadenoson. 2 . Normal left ventricular systolic function with a calculated ejection fraction of 68%. 3 . No obvious significant scintigraphic evidence of myocardial ischemia or scar. - (09/25/2012) Jean Pierre Snyder MD test results :due to obesity,de conditioning a nd rx weight loss H is updated medication list for this problem includes: Adult Aspirin Ec Low Strength 81 Mg Tbec (Aspirin) ..... 1 tab daily Lasix 40 Mg Tabs (Furosemide) ..... 1 tab daily Verapamil Hcl Er 240 Mg [id number] (Verapamil hcl) ..... 1 capsule daily Aspirin 81 Mg Tabs (Aspirin) ..... One tab. daily BP today: / Prior BP: 138/74 (09/19/2012) N uclear Stress Findings: 1. Normal myocardial perfusion imaging after vasodilator stress with Regadenoson. 2 . Normal left ventricular systolic function with a calculated ejection fraction of 68%. 3 . No obvious significant scintigraphic evidence of myocardial ischemia or scar. - (09/25/2012) Jean Pierre Snyder MD New patient: H is updated medication list for this problem includes: Lipitor 10 Mg Tabs (Atorvastatin calcium) ..... 1 tab daily BP today: 138/74 Prior BP: 126/78 (02/23/2010) Jean Pierre Snyder MD New patient: H is updated medication list for this problem includes: Adult Aspirin Ec Low Strength 81 Mg Tbec (Aspirin) ..... 1 tab daily Verapamil Hcl Er 240 Mg [id number] (Verapamil hcl) ..... 1 capsule daily BP today: 138/74 Prior BP: 126/78 (02/23/2010) Jean Pierre Snyder MD New patient: H is updated medication list for this problem includes: Adult Aspirin Ec Low Strength 81 Mg Tbec (Aspirin) ..... 1 tab daily Cardura 4 Mg Tabs (Doxazosin mesylate) ..... 1 tab daily Lasix 40 Mg Tabs (Furosemide) ..... 1 tab daily Verapamil Hcl Er 240 Mg [id number]-[id number] (Verapamil hcl) ..... 1 capsule daily BP today: 138/74 P rior BP: 126/78 (02/23/2010) P rior 10 Yr Risk Heart Disease: Not enough information (02/23/2010) Jean Pierre Snyder MD New patient Jean Pierre Snyder MD New patient: H is updated medication list for this problem includes: Lasix 40 Mg Tabs (Furosemide) ..... 1 tab daily BP today: 138/74 Prior BP: 126/78 (02/23/2010) Jean Pierre Snyder MD Date Name Sleep Study Titratio n PROTHROMBIN TIME WIT H INR LIPID PANEL CBC (INCLUDES DIFF/P LT) BASIC METABOLIC PANE L W/EGFR PROBNP, N TERMINAL Stress Cardiac PET-C T myocardial blood jessa w (PET) PROBNP, N TERMINAL BASIC METABOLIC PANE L W/EGFR Complete Echo Complete Echo PROBNP, N TERMINAL BASIC METABOLIC PANE L W/EGFR Complete Echo Holter Monitor 48 hr COMPREHENSIVE METABO LIC PANEL, W/EGFR HEMOGLOBIN A1c PROBNP, N TERMINAL Event Monitor Mobile Cardiac Tele CT Angio, Abdomen an d pelvis CT Cardiac with cont rast (Pre-Ablation) Carotid Duplex Bilat eral Cardiac Cath - L/R - CNE CBC (INCLUDES DIFF/P LT) LIPID PANEL HEMOGLOBIN A1c BASIC METABOLIC PANE L W/EGFR Complete Echo Stress Regadenoson Complete Echo Vitamin D, 25-Hydrox y CBC (H/H, RBC, INDIC ES, WBC, PLT) URINALYSIS, RANDOM, MICROALB/CREATININE HEMOGLOBIN A1c BASIC METABOLIC PANE L W/EGFR LIPID PANEL PROBNP, N TERMINAL BASIC METABOLIC PANE L W/EGFR RPR (MONITOR) W/REFL TITER VITAMIN B12 Vitamin D, 25-Hydrox y Carotid Duplex Bilat eral STR - Adenosine Complete Echo DLCO - 67357 FRC - 96745 FVC - 92956 PROBNP, N TERMINAL BASIC METABOLIC PANE L W/EGFR Arterial Duplex Bi-L ower EX Venous Doppler Bilat eral LE - Reflux Complete Echo Venous Doppler Bilat eral LE - Standing Cardiac Rehab Complete Echo PROTHROMBIN TIME WIT H INR CBC (H/H, RBC, INDIC ES, WBC, PLT) LIPID PANEL BASIC METABOLIC PANE L W/EGFR LIPID PANEL COMPREHENSIVE METABO LIC PANEL W/EGFR Cardiac Cath - L/R - GC Complete Echo Sleep Study STR - Adenosine HISTORY OF PROCEDURES Procedure Date Procedure Name Provider Procedure Notes S tatus Complex e/m visit add on Jean Pierre Snyder MD completed Complex e/m visit add on Jean Pierre Snyder MD [03/21/2024 - nory] APPROVED completed Complex e/m visit add on Jean Pierre Snyder MD completed EKG Jean Pierre Snyder MD completed EKG Jean Pierre Snyder MD completed EKG Jean Pierre Snyder MD completed Mobile Cardiac Telem etry - Tech Jean Pierre Snyder MD completed Mobile Cardiac Telem etry - Prof Jean Pierre Snyder MD completed FVC / MVV with bronchodilator - 64238 Jean Pierre Snyder MD completed FRC - 48184 Jean Pierre Snyder MD complete d SpO2 w/o 6min walk/titration Jean Pierre Snyder MD completed DLCO - 80068 Jean Pierre Snyder MD complet ed EKG Jean Pierre Snyder MD completed Regadenoson, 4 units Jean Pierre Snyder MD completed Cardiolite, 2 units Jean Pierre Snyder MD completed SPECT Images Dez Penaloza MD complet ed Stress EKG eDz Penaloza MD completed EKG Jean Pierre Snyder MD completed FVC / MVV - 45876 Bernard Gutierrez MD c ompleted FRC - 80478 Bernard Gutierrez MD complet ed SpO2 w/o 6min walk/titration Bernard Gutierrez MD completed DLCO - 68291 Bernard Gutierrez MD comple adore SNOMED-CT: 52005897 Physical Exam, Performed: Pulse Exam of Foot Jean Pierre Snyder MD completed SNOMED-CT: 119780667412707 Current Medications Documented Jean Pierre Snyder MD completed EKG Conrado Beckford MD complet ed SNOMED-CT: 477784433188577 Current Medications Documented Conrado Beckford MD completed SNOMED-CT: 76760267 Physical Exam, Performed: Pulse Exam of Foot Jean Pierre Snyder MD completed SNOMED-CT: 198208540280603 Current Medications Documented Jean Pierre Snyder MD completed SNOMED-CT: 24795126 Physical Exam, Performed: Pulse Exam of Foot Jean Pierre Snyder MD completed SNOMED-CT: 032050609770285 Current Medications Documented Jean Pierre Snyder MD completed SNOMED-CT: 43934046 Physical Exam, Performed: Pulse Exam of Foot Jean Pierre Snyder MD completed EKG Jean Pierre Snyder MD completed SNOMED-CT: 841133488294964 Current Medications Documented Jean Pierre Snyder MD completed SNOMED-CT: 34118740 Physical Exam, Performed: Pulse Exam of Foot Jean Pierre Snyder MD completed SNOMED-CT: 902278812188294 Current Medications Documented Jean Pierre Snyder MD completed SNOMED-CT: 93495655 Physical Exam, Performed: Pulse Exam of Foot Jean Pierre Snyder MD completed SNOMED-CT: 326219679783792 Current Medications Documented Jean Pierre Snyder MD completed SNOMED-CT: 966371178 Smoking Cessation Counseling Jean Pierre Snyder MD completed SNOMED-CT: 57108012 Physical Exam, Performed: Pulse Exam of Foot Jean Pierre Snyder MD completed SNOMED-CT: 813896616903281 Current Medications Documented Jean Pierre Snyder MD completed EKG Jean Pierre Snyder MD completed EKG Jean Pierre Snyder MD completed
--- OUTSIDE RECORDS SUMMARY | 2024-06-23 13:49 | XMS_ITS | Clinical Summary ---
Author Organization [facility] Address [address] [place] [address] Care Team Providers Care Design Engineering Manager Name Role Phone Lance Green MD Primary Care Provider [phone] Source Comments [facility],non-owned Affiliates and Associated Physician Practices is amultiple site organization consisting of ambulatory clinics and hospital sitesin [place], [place], [place] and [place]. This disclosure is being madepursuant to the Care Everywhere program and may not contain all information available regarding this patient. Last updated 17.[facility] Allergies No known active allergies Medications * Be aware that medications may not be up to date on this document. Alwaysverify current medications with the patient. Cholecalciferol (VITAMIN D-3 PO) Take 50,000 Units by mouth every 7 days Active Cyanocobalamin (VITAMIN B-12 PO) Active vitamin D, ergocalciferol, (Drisdol) 1.25 MG (60627 UT) capsule TAKE 1 CAPSULE BY MOUTH ONE TIME PER WEEK Active lisinopril (Prinivil; Zestril) 20 MG tablet lisinopril 20 mg tablet 5 Active carvedilol (Coreg) 12.5 MG tablet Take 1 (one) tablet by mouth 2 times daily Active ubiquinine/hector min-e (Coenzyme Q10) 200 MG capsule Take 200 mg by mouth once daily Active Multiple Vitamins-Minera ls (PreserVision AREDS) TABS PreserVision AREDS 7,160 unit- 113 mg-100 unit tablet Active Active Problems Problem Noted Date Diagnosed Date 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/11/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), bilatera l 04/11/2018 Nuclear age-related cataract, right eye 09/06/19 18 Age-related nuclear cataract of left eye 018 Retinal artery branch occlusion of right eye Encounters Date Type Department Care Team Description 04/25/2024 11:20 AM CDT Clinical Support [facility] - Ophthalmology [address] [place] [phone] Antione Yu, OD Glaucoma suspect of both eyes (Primary Dx) 04/25/2024 11:00 AM CDT Office Visit [facility] - Ophthalmology [address] [place] [phone] Antione Yu, OD Glaucoma suspect of both eyes (Primary Dx); Pseudophakia; Dry eye; Presbyopia of both eyes 04/25/2024 Travel from Last 3 Months Family History Medical History Relation Name Comments Amblyopia Neg Hx Blindness Neg Hx Cataract Neg Hx Glaucoma Neg Hx Macular Degeneration Neg Hx Retinal Detachment Neg Hx Strabismus Neg Hx Social History Tobacco Use Types Packs/Day Years Used Date Smoking Tobacco: Former Smokeless Tobacco: Never Alcohol Use Standard Drinks/Week Comments Yes 0 (1 standard drink = 0.6 oz pur e alcohol) Sex and Gender Information Value Date Recorded Sex Assigned at Not on file 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 Gender Identity Not on file Sexual Orientation Not on file Last Filed Vital Signs Vital Sign Reading Time Taken Comments Blood Pressure 153/72 09/05/2017 10:20 AM CDT Pulse 62 09/05/2017 10:20 AM CDT Temperature 36.7 C (98.1 F) 09/05/2017 10:20 AM CDT Respiratory Rate 18 09/05/2017 10:20 AM CDT Oxygen Saturation 96% 09/05/2017 10:20 AM CDT Inhaled Oxygen Concentration 21% 09/05/2017 8 :39 AM CDT Weight 133.8 kg (295 lb) 09/05/2017 8:39 AM CDT Height 170.2 cm (5' 7 ) 09/05/2017 8:39 AM CDT Body Mass Index 46.2 09/05/2017 8:39 AM CDT Plan of Treatment Upcoming Encounters Date Type Department Care Team (Late st Contact Info) Description 04/27/2025 10:00 AM CDT Office Visit [facility] [address] [place] [address] Antione Yu, SEBASTIAN [address] [place] [address] Health Maintenance Due Date Last Done Comments DTAP/TDAP/TD VACCINES (1 - Tdap) 1954 PNEUMOCOCCAL VACCINE 50+ (1 of 1 - PCV) 1985 ZOSTER VACCINE (1 of 2) 1985 Respiratory Syncytial Virus (RSV) Vaccine Pt: or over 60 yrs (1 - 1-dose 75+ series) 2010 COVID-19 VACCINE ( - season) 2023 10/12/2021, 10/30/2020, 03/26/2020, Additional history exists DEPRESSION SCREENING 02/06/2024 MEDICARE AWV CALENDAR YEAR 2024 INFLUENZA VACCINE (Season Ended) 2024 11/12/2022, 11/12/2019, 11/19/2018, Additional history exists HEPATITIS B VACCINE Aged Out No longe r eligible based on patient's age to complete this topic HIB VACCINE Aged Out No longer eligi ble based on patient's age to complete this topic HPV VACCINE Aged Out No longer eligi ble based on patient's age to complete this topic MENINGOCOCCAL (Group B) VACCINE SHARED DECISION-MAKING Aged Out No longer eligible based on patient's age to complete this topic MENINGOCOCCAL GROUPS A/C/Y/W VACCINE Aged Out No longer eligible based on patient's age to complete this topic Medical Devices Implanted Type Area Director Sales And Trade Marketing Device Identifier Shelf Expiration Date Model / Serial / Lot Lens Iol +22.5 Ethan [employer]nis - [id number] Implanted:Qty: 1 on 08/15/2017 by Amador Roman MD at [facility] Left: Eye [employer] 05/14/2020 [id number] / [id number] / Lens Iol +23.5 Ethan [employer]vx [employer]ecnis - [id number] Implanted:Qty: 1 on 09/05/2017 by Amador Roman MD at [facility] Right: Eye [employer] 06/18/2020 [id number] / [id number] / Procedures Procedure Name Priority Date/Time Associated Diagnosis Comments OPTIC NERVE ANALYSIS OCT Routine 04/25/2024 11:19 AM CDT Glaucoma suspect of both eyes from Last 3 Months Results * OPTIC NERVE ANALYSIS OCT (04/25/2024 11:19 AM CDT) Anatomical Region Laterality Modality Head External-Camera Photography Narrative 04/25/2024 11:37 AM CDT Images from the original result were not included. OD: good signal, overall full with no concerns for glaucoma; GPA shows no apparent progression OS: good signal, overall full with no concerns for glaucoma; GPA shows no apparent progression us Antione Yu OD OPHTHALMOLOGY SCHED ORD W PACS F inal Result from Last 3 Months Insurance [facility] MANAGED MEDICARE ADV [facility] MANAGED MEDICARE ADV SELF PAY NO INSURANCE Member Subscriber Plan / Payer (Ef fective for All Dates) Name:Edwin Hickey Member ID:Not on file Relation to Subscriber:Not on file Name:EDWIN HICKEY Subscriber ID:Not on file (Home) Address: [address] [place] [address] Payer ID:Not on file Group ID:Not on file Type:Self Pay Address: [place], [place] Advance Directives * Full Code (Latest Code Status on File) Date Activated Date Inactivated Comments 09/05/2017 8:25 AM 09/05/2017 11:33 AM * Full Code Date Activated Date Inactivated Comments 08/15/2017 2:32 PM 08/15/2017 4:02 PM * Full Code Date Activated Date Inactivated Comments 08/15/2017 12:33 PM 08/15/2017 2:32 PM Care Teams Design Engineering Manager Relationship Specialty Start Date End Date Lance Green MD [address] [place] [address] PCP - General 07/06/17
--- OUTSIDE RECORDS SUMMARY | 2024-06-23 13:49 | XMS_ITS | Clinical Summary ---
Author Organization [facility] Address [address] [place] [address] Care Team Providers Care Skiing Teacher Name Role Phone Lance Green MD Primary Care Provider + [phone] Jean Pierre Snyder MD Unavailable Allergies No [...] 10 mg by mouth daily Active vit C,A-Xf-xqwxt-agus tein-zeaxan 195-759-26-1 ya-aakj-sv-mg capsule Take 1 capsule by mouth daily [...] (08/28/2019): Added automatically from request for surgery [id number] Hypertension Coronary artery disease Hyperlipidemia BPH (benign prostatic hyperplasia) Troponin level elevated Immunizations Immunization Administration Dates Next Due Influenza, Unspecified 11/12/2022 Surgical History Surgery Date Site/Laterality Comments JOINT REPLACEMENT bilateral knees HERNIA REPAIR NASAL POLYP SURGERY x 4 PROSTATE SURGERY CORONARY ANGIOPLASTY WITH STENT PLACEMENT 2 stents SKIN CANCER EXCISION with skin graft to ear APPENDECTOMY ANOMALOUS PULMONARY VENOUS RETURN REPAIR, 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 - 10/06/2019 VALVE REPLACEMENT Medical History Medical History Date Comments Sleep apnea uses cpap Hyperlipidemia Irregular heartbeat Aortic stenosis Hernia, inguinal BPH (benign prostatic hyperplasia) Skin cancer left ear & chest SOB (shortness of breath) on exertion Hypertension Coronary artery disease SVT (supraventricular tachycardia) Family History Medical History Relation Name Comments No Known Problems Father No Known Problems Mother Relation Name Status Comments Father Mother Social History Tobacco Use Types Packs/Day Years [...] than three times a week 09/24/2019 Attends Jainism Services Not on file 09/23 Do you belong to any clubs o r organizations such as congregation groups, unions, fraternal or athletic groups, or [...] on file Legal Sex Male 6:44 PM ROLL TENSION TESTER Gender Identity Not on file Sexual Orientation Not on file Obstetrics History Last Filed Vital Signs Vital Sign Reading Time Taken Comments Blood Pressure 136/68 12/19/2022 2:32 PM ROLL TENSION TESTER Pulse 76 12/19/2022 2:32 PM ROLL TENSION TESTER Temperature 36.6 C (97.9 F) 12/19/2022 2:32 PM ROLL TENSION TESTER Respiratory Rate 18 12/19/2022 2:32 PM ROLL TENSION TESTER Oxygen Saturation 96% 12/19/2022 2:32 PM ROLL TENSION TESTER Inhaled Oxygen Concentration - - Weight 131.3 kg (289 lb 8 oz) 12/19/2022 2:32 PM ROLL TENSION TESTER Height 172.7 cm (5' 8 ) 11/26/2022 11:42 AM CDT Body Mass Index 44.02 11/26/2022 11:42 AM CDT Plan of Treatment Health Maintenance Due Date Last Done Comments Albumin Creatinine Ratio, Urine 1935 Depression Screening 1935 Fall Risk Assessment 1935 Dilated Eye Exam 1935 Foot Exam 1935 Hepatitis B Screening 1953 Zoster Vaccine (1 of 2) 1985 03/06/2019, 11/19 Well Visit 65+ 2000 Lipid Panel 01/21/2021 01/22/2020 Hemoglobin A1C 05/21/2023 11/19/2022 Influenza Vaccine (#1) 2023 , 11/12/2019, 11/19/2018, Additional history exists eGFR 11/21/2023 11/20/2022, 11/05, 04/15/2020, Additional history exists DTaP/Tdap/Td Vaccine (2 - Td or Tdap) 09/21/2028 09/21/2018 Pneumococcal vaccine 65+ Completed 09/19/2021, 05/06 Medical Devices Implanted Type Area Formulation Chemist Device Identifier Shelf Expiration Date Model / Serial / Lot Medtronic Inc Evproplus-34us Valve 34mm Aortic Evolut Pro+ - [id number] - [id number] Implanted:Qty: 1 on 09/23/2019 by Jean Pierre Snyder MD at [facility] [employer] 02/25/2021 EVPROPLUS-3 4 / [id number] / Procedures Procedure Name Priority Date/Time Associated Diagnosis Comments EGFR Routine 11/20/2022 4:14 AM CDT HEMOGLOBIN A1C Routine 11/19/2022 8:32 PM CDT LIPID PANEL Timed 01/22/2020 12:33 AM ROLL TENSION TESTER from Last 3 Months or Most Recently [...] Bassem Bolton NP LAB BLOOD ORDERABLES Bonnie l Result KEVIN ELIAS [address] [place] [address] * (ABNORMAL) Hemoglobin A1c (11/19/2022 8:32 PM CDT) Hgb A1C 6.4(H) 4.0 - 5.6 % Estimated Average Glucose 137 mg/dL KEVIN ELIAS Comment: The ADA recommends reporting an estimated Average Glucose (eAG) with all Hemoglobin A1c results using the equation derived from a study of 507 normal and diabetic adults. Minority populations were underrepresented and children were not included. (Diabetes Care 31:1002-6369, 2008). The eAG is not equivalent to a fasting glucose. Blood 11/19/2022 8:32 PM CDT 11/19/2022 8:41 PM CDT us Shontel Bethany Ray TOOL AND FIXTURE REPAIRER LAB BLOOD ORDERABLES Bonnie l Result KEVIN [address] [facility] Department [place] [address] * (ABNORMAL) Lipid panel (01/22/2020 12:33 AM ROLL TENSION TESTER) Cholesterol 138 30 - 199 mg/dL KEVIN [...] 2017. LDL, calculated 63 <=129 mg/dL KEVIN ELIAS Comment: Interpretive Data Ages [...] revised on 2017. Chol/HDL ratio 4 KEVIN ELIAS Blood specimen (specimen) 01/22/2020 12:33 AM ROLL TENSION TESTER 01/22/2020 12:51 AM ROLL TENSION TESTER Narrative KEVIN ELIAS - 01/22/2020 1:58 AM ROLL TENSION TESTER This lipid panel was automatically ordered due to a critical delta for Troponin- T. The dietary status of the patient at the collection time should be correlated with the lipid results. us Valeriy Colbert MD LAB BLOOD ORDERABLE S Final Result KEVIN ELIAS [address] Department [place] [address] from Last 3 Months or Most Recently Relevant to Health Maintenance Insurance [facility] MEDICARE ADVANTAGE [facility] MEDICARE ADVANTAGE Advance Directives For more information, please contact: [phone] Documents on File Type Date Recorded Patient Veneer Matcher Expl anation ADVANCE DIRECTIVE 11/21/2022 5:32 PM [...] 11:32 AM 04/08/2019 6:47 PM Care Teams Skiing Teacher Relationship Specialty Start Date End Date Lance Green MD PCP - General Internal Medicine 08/14/19 Jean Pierre Snyder MD Consulting Physician Cardiovascular Disease 09/25/19
--- NOTE | 2024-06-23 14:00 | ECG_ITS ---
Test Date: 2024-06-23 14:02:09 Measurements Intervals [place] Rate: 98 P: -7 WY: 142 QRS: -21 QRSD: 89 T: 25 QT: 341 QTc: 437 Interpretive Statements SINUS RHYTHM WITH OCCASIONAL SUPRAVENTRICULAR PREMATURE COMPLEXES BORDERLINE LEFT AXIS DEVIATION [QRS AXIS < -20] No previous ECG available for comparison Electronically Signed On 06-24-2024 13:23:18 CDT by Maren Horne M.D.
[2024-06-23 14:20] LABS: Basophils Percent Auto 0.5 % (0.2-1.2); Eosinophils Absolute Auto 0.1 K/mm3 (0-0.3); Eosinophils Percent Auto 1.9 % (0-4.4); Hematocrit 32.9 % (42.0-52.0); Hemoglobin 10.3 g/dL (14.0-18.0); Immature Granulocyte Absolute 0.03 K/mm3 (0.00-0.031); Immature Granulocyte Percent A 0.7 % (0-0.5); Lymphocytes Absolute Auto 1.62 K/mm3 (0.9-3.2); Lymphocytes Percent Auto 37.9 % (18.3-44.2); Mean Corpuscular HGB Conc 31.3 g/dl (32-36); Mean Corpuscular Hemoglobin 26.3 pg (26-34); Mean Corpuscular Volume 83.9 fl (80-100); Monocytes Absolute Auto 0.4 K/mm3 (0.1-0.6); Monocytes Percent Auto 8.9 % (2.6-8.5); Neutrophils Absolute Auto 2.2 K/mm3 (1.3-6.7); Neutrophils Percent Auto 50.1 % (45.5-73.1); Platelet Count Result 194 k/mm3 (150-375); Red Blood Count 3.92 M/mm3 (4.6-6.20); Red Cell Distribution Width 15.5 % (11.5-14.5); White Blood Count 4.3 K/mm3 (4.5-10.0)
[2024-06-23 14:33] LABS: Alanine Aminotransferase 32 U/L (6-50); Albumin Level 3.9 g/dL (3.5-5.1); Alkaline Phosphatase 79 U/L (38-126); Anion Gap 11 mmol/L (4-12); Aspartate Amino Transferase 34 U/L (17-59); Bilirubin,Total 0.6 mg/dL (0.2-1.3); Blood Urea Nitrogen 16 mg/dL (9-20); Calcium 8.7 mg/dL (8.4-10.2); Carbon Dioxide 25 mmol/L (22-30); Chloride 103 mmol/L (98-107); Estimated CRCL calculation 65 ml/min; Estimated Glomerular Filt Rate > 60; Glucose 109 mg/dL (65-110); Potassium 3.7 mmol/L (3.4-5.0); Sodium 139 mmol/L (137-145)
[2024-06-23 14:45] LABS: NT Pro B Type Natriuretic Pept 202 pg/mL (19.9-100); Troponin I < 0.012 ng/mL (0.000-0.034)
[2024-06-23 15:11] LABS: Partial Thromboplastin Time 30.3 Seconds (22.3-36.8)
--- OUTSIDE RECORDS SUMMARY | 2024-06-23 15:19 | XMS_ITS | Clinical Summary ---
Author Organization [facility] Address [address] [place] [address] Care Team Providers Care Principal Archaeologist Name Role Phone Lance Green MD Primary Care Provider + [phone] Jean Pierre Snyder MD Unavailable Allergies No [...] 10 mg by mouth daily Active vit C,Y-Nz-jvefv-agus tein-zeaxan 664-615-57-1 gz-kzgs-da-mg capsule Take 1 capsule by mouth daily [...] (08/28/2019): Added automatically from request for surgery [id number] Hypertension Coronary artery disease Hyperlipidemia BPH (benign [...] than three times a week 09/24/2019 Attends Spiritism Services Not on file 09/23 Do you belong to any clubs o r organizations such as sabianism groups, unions, fraternal or athletic groups, or [...] on file Legal Sex Male 6:44 PM CONTINUOUS DRYOUT OPERATOR HELPER Gender Identity Not on file Sexual Orientation Not on file Obstetrics History Last Filed Vital Signs Vital Sign Reading Time Taken Comments Blood Pressure 136/68 12/19/2022 2:32 PM CONTINUOUS DRYOUT OPERATOR HELPER Pulse 76 12/19/2022 2:32 PM CONTINUOUS DRYOUT OPERATOR HELPER Temperature 36.6 C (97.9 F) 12/19/2022 2:32 PM CONTINUOUS DRYOUT OPERATOR HELPER Respiratory Rate 18 12/19/2022 2:32 PM CONTINUOUS DRYOUT OPERATOR HELPER Oxygen Saturation 96% 12/19/2022 2:32 PM CONTINUOUS DRYOUT OPERATOR HELPER Inhaled Oxygen Concentration - - Weight 131.3 kg (289 lb 8 oz) 12/19/2022 2:32 PM CONTINUOUS DRYOUT OPERATOR HELPER Height 172.7 cm (5' 8 ) 11/26/2022 [...] Panel 01/21/2021 01/22/2020 Hemoglobin A1C 05/21/2023 11/19/2022 eGFR 11/21/2023 11/20/2022, 11/05, 04/15/2020, Additional history exists Influenza Vaccine (Season Ended) 2024 11/12/2022, 11/12/2019, 11/19/2018, Additional history exists DTaP/Tdap/Td Vaccine (2 - Td or Tdap) 09/21/2028 09/21/2018 Pneumococcal vaccine 65+ Completed 09/19/2021, 05/06 Medical Devices Implanted Type Area Faceter Device Identifier Shelf Expiration Date Model / Serial / Lot Medtronic Inc Evproplus-34us Valve 34mm Aortic Evolut Pro+ - [id number] - [id number] Implanted:Qty: 1 on 09/23/2019 by JeanP ierre Snyder MD at [facility] [employer] 02/25/2021 EVPROPLUS-3 4 / [id number] / Procedures Procedure Name Priority Date/Time Associated Diagnosis Comments EGFR Routine 11/20/2022 4:14 AM CDT HEMOGLOBIN A1C Routine 11/19/2022 8:32 PM CDT LIPID PANEL Timed 01/22/2020 12:33 AM CONTINUOUS DRYOUT OPERATOR HELPER from Last 3 Months or Most Recently [...] BLOOD ORDERABLES Bonnie l Result KEVIN ELIAS [address] Department [place] [address] * (ABNORMAL) Hemoglobin A1c (11/19/2022 8:32 PM CDT) Hgb A1C 6.4(H) 4.0 - 5.6 % Estimated Average Glucose 137 mg/dL KEVIN ELIAS Comment: The ADA recommends reporting an estimated Average Glucose (eAG) with all Hemoglobin A1c results using the equation derived from a study of 507 normal and diabetic adults. Minority populations were underrepresented and children were not included. (Diabetes Care 31:3336-2367, 2008). The eAG is not equivalent to a fasting glucose. Blood 11/19/2022 8:32 PM CDT 11/19/2022 8:41 PM CDT us Shontel Bethany Ray PHARMACY CLERK LAB BLOOD ORDERABLES Bonnie l Result KEVIN [address] [facility] Department [place] [address] * (ABNORMAL) Lipid panel (01/22/2020 12:33 AM CONTINUOUS DRYOUT OPERATOR HELPER) Cholesterol 138 30 - 199 mg/dL KEVIN [...] ELIAS Blood specimen (specimen) 01/22/2020 12:33 AM CONTINUOUS DRYOUT OPERATOR HELPER 01/22/2020 12:51 AM CONTINUOUS DRYOUT OPERATOR HELPER Narrative KEVIN ELIAS - 01/22/2020 1:58 AM CONTINUOUS DRYOUT OPERATOR HELPER This lipid panel was automatically ordered due to a critical delta for Troponin- T. The dietary status of the patient at the collection time should be correlated with the lipid results. us Valeriy Colbert MD LAB BLOOD ORDERABLE S Final Result KEVIN ELIAS [address] Department [place] [address] from Last 3 Months or Most Recently Relevant to Health Maintenance Insurance [facility] MEDICARE ADVANTAGE [facility] MEDICARE ADVANTAGE Advance Directives For more information, please contact: [phone] Documents on File Type Date Recorded Patient Second Grade Teacher Expl anation ADVANCE DIRECTIVE 11/21/2022 5:32 PM [...] 11:32 AM 04/08/2019 6:47 PM Care Teams Principal Archaeologist Relationship Specialty Start Date End Date Lance Green MD PCP - General Internal Medicine 08/14/19 Jean Pierre Snyder MD Consulting Physician Cardiovascular Disease 09/25/19
--- OUTSIDE RECORDS SUMMARY | 2024-06-23 15:19 | XMS_ITS | Clinical Summary ---
Author Organization [facility] [employer] Address [address] [place] [address] Care Team Providers Care Washer And Crusher Tender Name Role Phone Lance Green MD Primary Care Provider [phone] Source Comments [facility] [employer],non-owned Affiliates and Associated Physician Practices is amultiple site organization consisting of ambulatory clinics and hospital sitesin [place], [place], [place] and [place]. This disclosure is being madepursuant to the Care Everywhere program and may not contain all information available regarding this patient. Last updated 17.[facility] [employer] Allergies No known active allergies Medications * Be aware that medications may not be up to date on this document. Alwaysverify current medications with the patient. Cholecalciferol (VITAMIN D-3 PO) Take 50,000 Units by mouth every 7 days Active Cyanocobalamin (VITAMIN B-12 PO) Active vitamin D, ergocalciferol, (Drisdol) 1.25 MG (35588 UT) capsule TAKE 1 CAPSULE BY MOUTH [...] Description 04/25/2024 11:20 AM CDT Clinical Support [facility] [address] [place] [phone] Antione Yu, OD Glaucoma suspect of both eyes (Primary Dx) 04/25/2024 11:00 AM CDT Office Visit [facility] [address] [place] [phone] Antione Yu, OD Glaucoma suspect of both [...] on file Legal Sex Male 5:14 PM DRAMA CRITIC Gender Identity Not on file Sexual Orientation [...] [facility] [address] [place] [address] Antione Yu, SEBASTIAN [address] [place], [...] this topic Medical Devices Implanted Type Area Music Copyist Device Identifier Shelf Expiration Date Model / Serial / Lot Lens Iol +22.5 Ethan Hpt C Bcnvx Tecnis - [id number] Implanted:Qty: 1 on 08/15/2017 by Amador Roman MD at [facility] Left: Eye [employer] 05/14/2020 [id number] / [id number] / Lens Iol +23.5 Ethan Hpt C Bcnvx Tecnis - [id number] Implanted:Qty: 1 on 09/05/2017 by Amador Roman MD at [facility] Right: Eye [employer] 06/18/2020 [id number] / [id number] / Procedures Procedure Name Priority Date/Time Associated [...] inal Result from Last 3 Months Insurance [facility] MANAGED MEDICARE ADV [facility] MANAGED MEDICARE ADV SELF PAY NO INSURANCE Member Subscriber Plan / Payer (Ef fective for All Dates) Name:Edwin Hickey Member ID:Not on file Relation to Subscriber:Not on file Name:EDWIN HICKEY Subscriber ID:Not on file (Home) Address: [address] [place] [address] Payer ID:Not on file Group ID:Not on file Type:Self Pay Address: [place], [place] Advance Directives * Full Code (Latest Code Status on File) Date Activated Date Inactivated Comments 09/05/2017 8:25 AM 09/05/2017 11:33 AM * Full Code Date Activated Date Inactivated Comments 08/15/2017 2:32 PM 08/15/2017 4:02 PM * Full Code Date Activated Date Inactivated Comments 08/15/2017 12:33 PM 08/15/2017 2:32 PM Care Teams Washer And Crusher Tender Relationship Specialty Start Date End Date Lance Green MD [address] [place] [address] PCP - General 07/06/17
--- OUTSIDE RECORDS SUMMARY | 2024-06-23 15:19 | XMS_ITS | Continuity of Care Document ---
Author Organization [facility] Address [address] [place] [address] Phone Care Team Providers Care Experience Planning Strategist Name Role Phone Hany Vasquez Unavailable Unavailable [...] Diagnoses Date Provider Providers Copied on Encounter [facility], [address] [place] [address] [address], [place], [place], [id number], [place] tel:[phone] [facility] [place] No Information 3-201 0 Christina Leach. [address] [facility] [place] , [address], [place], [place], [facility], [place]. tel:[phone] [facility], [address], [place], [place], [id number], [place] tel:[phone] SEC [facility] No Information 2-200 9 Christina Leach. [address] [facility] [place] , [address], [place], [address], [place]. tel:[phone] [facility], [address], [place], [place], [id number], [place] tel:[phone] [facility] [place] No Information 200 8 Christina Leach. [facility] [address], [place], [place], [facility], . tel:[phone] Referring Provider: [address], [place], [place], [facility]. tel:[phone] [facility], [address] [place] [address] [address], [place], [place], [id number], tel:[phone] [facility] [place] No Information 8-200 8 Christina Leach. [address] [place] [address] [address], [place], [place], [facility], . tel:[phone] Office/outpat ient Visit, [facility], [address] [place] [address] [address], [place], [place], [id number], tel:[phone] SEC [facility] No Information [address] Christina Leach. [facility] [address], [place], [place], [facility], . tel:[phone] [facility], [address] [place] [address] [address], [place], [place], [id number], tel:[phone] [facility] [place] No Information [address] Christina Leach. [facility] [address], [place], [place], [facility], . tel:[phone] Referring Provider: Hany Valero [facility] [address], [place], [place], [facility]. tel:[phone] Family History Family Member Type Diagnosis Age At Onset No Information Payers Payer name Insurance type Covered democrat ID Authoriza tion(s) No Information Social History [...]
--- OUTSIDE RECORDS SUMMARY | 2024-06-23 15:20 | XMS_ITS | Referral Summary ---
Author Organization [facility] Address [address] [place] [address] Care Team Providers Care Buffer Nickel Name Role Phone Lance Green MD Primary Care Provider + [phone] Jean Pierre Snyder MD Unavailable Allergies No [...] 10 mg by mouth daily Active vit C,T-Lv-edwgu-agus tein-zeaxan [id number] ax-dixi-gn-mg capsule Take 1 capsule by mouth daily [...] (08/28/2019): Added automatically from request for surgery [id number] Hypertension Coronary artery disease Hyperlipidemia BPH (benign [...] than three times a week 09/24/2019 Attends Buddhism Services Not on file 09/23 Do you belong to any clubs o r organizations such as anabaptist groups, unions, fraternal or athletic groups, or [...] on file Legal Sex Male 6:44 PM FOUNDATION ASSISTANT Gender Identity Not on file Sexual Orientation Not on file Last Filed Vital Signs Vital Sign Reading Time Taken Comments Blood Pressure 136/68 12/19/2022 2:32 PM FOUNDATION ASSISTANT Pulse 76 12/19/2022 2:32 PM FOUNDATION ASSISTANT Temperature 36.6 C (97.9 F) 12/19/2022 2:32 PM FOUNDATION ASSISTANT Respiratory Rate 18 12/19/2022 2:32 PM FOUNDATION ASSISTANT Oxygen Saturation 96% 12/19/2022 2:32 PM FOUNDATION ASSISTANT Inhaled Oxygen Concentration - - Weight 131.3 kg (289 lb 8 oz) 12/19/2022 2:32 PM FOUNDATION ASSISTANT Height 172.7 cm (5' 8 ) 11/26/2022 11:42 AM CDT Body Mass Index 44.02 11/26/2022 11:42 AM CDT Plan of Treatment Not on file Medical Devices Implanted Type Area Filtration Operator Device Identifier Shelf Expiration Date Model / Serial / Lot [employer] Evproplus-34us Valve 34mm Aortic Evolut Pro+ - [id number] - [id number] Implanted:Qty: 1 on 09/23/2019 by Jean Pierre Snyder MD at [facility] [employer] 02/25/2021 EVPROPLUS-3 4 / [id number] / Procedures Procedure Name Priority Date/Time Associated Diagnosis Comments EGFR Routine 11/20/2022 4:14 AM CDT HEMOGLOBIN A1C Routine 11/19/2022 8:32 PM CDT LIPID PANEL Timed 01/22/2020 12:33 AM FOUNDATION ASSISTANT from Last 3 Months or Most Recently [...] BLOOD ORDERABLES Bonnie welsh Result KEVIN ELIAS [address] Department [place] [address] * (ABNORMAL) Hemoglobin A1c (11/19/2022 8:32 PM CDT) Hgb A1C 6.4(H) 4.0 - 5.6 % Estimated Average Glucose 137 mg/dL KEVIN ELIAS Comment: The ADA recommends reporting an estimated Average Glucose (eAG) with all Hemoglobin A1c results using the equation derived from a study of 507 normal and diabetic adults. Minority populations were underrepresented and children were not included. (Diabetes Care 31:0692-0458, 2008). The eAG is not equivalent to a fasting glucose. Blood 11/19/2022 8:32 PM CDT 11/19/2022 8:41 PM CDT us Bassem Bolton NP LAB BLOOD ORDERABLES Bonnie anitha Result KEVIN ELIAS [address] Department [place] [address] * (ABNORMAL) Lipid panel (01/22/2020 12:33 AM FOUNDATION ASSISTANT) Cholesterol 138 30 - 199 mg/dL KEVIN [...] KEVIN Blood specimen (specimen) 01/22/2020 12:33 AM FOUNDATION ASSISTANT 01/22/2020 12:51 AM FOUNDATION ASSISTANT Narrative KEVIN ELIAS - 01/22/2020 1:58 AM FOUNDATION ASSISTANT This lipid panel was automatically ordered due to a critical delta for Troponin- T. The dietary status of the patient at the collection time should be correlated with the lipid results. us Valeriy Colbert MD LAB [place]LOOD [place] [address] [address] Department [place] [address] from Last 3 Months or Most Recently Relevant to Health Maintenance Insurance [facility] MEDICARE ADVANTAGE [facility] Address: [address] [address] [place] [address] [facility] MEDICARE ADVANTAGE [facility] MEDIC[facility] Address: [address] [address] [place] [address] [facility] MEDICARE ADVANTAGE [facility] MEDICARE Address: [facility] [address] [place] [address] Advance Directives For more information, please contact: [phone] Documents on File Type Date Recorded Patient Purse Maker Expl anation ADVANCE DIRECTIVE 11/21/2022 5:32 PM [...] 11:32 AM 04/08/2019 6:47 PM Care Teams Buffer Nickel Relationship Specialty Start Date End Date Lance Green MD PCP - General Internal Medicine 08/14/19 Jean Pierre Snyder MD Consulting Physician Cardiovascular Disease 09/25/19
--- NOTE | 2024-06-23 16:07 | ED_ITS ---
HPI - General Adult General Chief complaint: Shortness of Breath/Dyspnea Stated complaint: Shortness of breath Time Seen by Provider: 06/23/24 15:02 History of Present Illness HPI narrative: 89-year-old male present to the emergency department for evaluation for worsening exertional shortness of breath. Family states that of the course of the last 3 weeks patient has had worsening shortness of breath. Patient does not normally wear oxygen at home. Patient's pulse ox was in the low 90s on room air with respiratory rate of 41 with minor exertion. Have follow-up with primary care physician today and referred to the emergency department for further evaluation. At time of my initial evaluation patient was on 2 L of oxygen by nasal cannula and was sitting on the edge of the bed and resting comfortably. While at rest patient denies any shortness of breath. Patient states he has no chest pain with exertion. Related Data Home Medications ?Medication ?Instructions ?Recorded ?Confirmed ?Last Taken ?Type aspirin 81 mg tablet,delayed 81 mg PO DAILY 05/01/24 06/23/24 06/23/24 History release cholecalciferol (vitamin D3) 25 25 mcg PO DAILY 05/01/24 06/23/24 06/22/24 History mcg (1,000 unit) capsule coenzyme Q10 10 mg capsule 10 mg PO DAILY 05/01/24 06/23/24 Unknown History doxazosin 4 mg tablet (Cardura) 4 mg PO DAILY 05/01/24 06/23/24 06/22/24 History finasteride 5 mg tablet 5 mg PO DAILY 05/01/24 06/23/24 06/23/24 History furosemide 40 mg tablet 40 mg PO QAM 05/01/24 06/23/24 06/22/24 History lisinopril 20 mg tablet 20 mg PO DAILY 05/01/24 06/23/24 06/23/24 History loratadine 10 mg tablet (Loradamed) 10 mg PO DAILY 05/01/24 06/23/24 06/23/24 History mecobalamin (vitamin B12) 1,000 1,000 mcg PO DAILY 05/01/24 06/23/24 Unknown History mcg chewable tablet mv-mn-folic 200 mcg-vit K 15 1 cap PO DAILY 05/01/24 06/23/24 06/22/24 History mcg-lutein 5 mg-zeaxanthin 1 mg capsule (PreserVision AREDS 2 Plus Multivit) verapamil 120 mg tablet,extended 120 mg PO DAILY 05/01/24 06/23/24 06/22/24 History release atorvastatin 10 mg tablet 10 mg PO EVERY OTHER DAY 06/23/24 06/23/24 06/21/24 History Allergies Allergy/AdvReac Type Severity Reaction Status Date / Time No Known Allergies Allergy Verified 06/23/24 19:04 Review of Systems 2 Review of Systems: All systems reviewed & are unremarkable except as noted in HPI and below PMFSH Past Medical History Medical History (Updated 06/23/24 @ 20:57 by Jennifer Dennison DO) BMI greater than 40 History of skin cancer Resected from the left leg 2024 Diet-controlled diabetes mellitus BPH (benign prostatic hyperplasia) Obstructive sleep apnea on CPAP Essential hypertension Hyperlipidemia Surgical History Surgical History (Updated 06/23/24 @ 20:53 by Jennifer Dennison DO) Status post cataract extraction of both eyes with insertion of intraocular lens History of total bilateral knee replacement History of heart valve replacement (~09/2020) History of cardiac catheterization Social History Social History (Updated 06/23/24 @ 20:54 by Jennifer Dennison DO) Social History: Code status: Full code Healthcare power of attorney lawyer: Michela Hickey () Smoking status: Never smoker Alcohol intake: current Substance use: never Do You Feel Safe in your Home?: Yes Lack of Transportation: No Lack of Food: Never True Current Housing: I Have Housing Concerned About Future Housing: No Difficulty Paying Gas/Electric Bills: No Difficulty Paying for Meds: No Currently Unemployed: Decline to Answer Education: High School Diploma/GED Difficulty w/ Childcare or Family Care: No Spiritual care concerns: No Exam 2 Narrative: APPEARANCE: Well appearing, no pain, no distress, well-nourished. HEAD: normocephalic, atraumatic. EYES: PERRLA/EOMI, conjunctivae clear. NOSE: Normal no drainage EARS:TMS clear with good light reflex. THROAT: Pharynx clear, no exudate. NECK: Supple. No adenopathy, no masses. RESPIRATORY: Airway patent, respirations nonlabored. Clear to auscultation bilaterally, no rales, rhonchi, wheezing. CARDIOVASCULAR: Regular rate and rhythm without murmurs rubs or gallops. ABDOMINAL: Soft, nontender, nondistended, normal bowel sounds MUSCULOSKELETAL: Moves all extremities. Strength/ROM intact, No edema, No calf tenderness. NEURO: Alert. Cranial nerves II through XII intact. Good gait. Good coordination SKIN: Warm, dry. Normal Color Course Vital Signs Vital signs: Vital Signs Temperature 97.8 F 06/23/24 13:51 Pulse Rate 95 06/23/24 13:51 Respiratory Rate 41 H 06/23/24 13:51 Blood Pressure 130/66 06/23/24 13:51 Pulse Oximetry 92 06/23/24 13:51 Oxygen Delivery Room Air 06/23/24 13:51 Temperature 97.9 F 06/23/24 20:18 Pulse Rate 95 06/23/24 20:18 Respiratory Rate 16 06/23/24 20:18 Blood Pressure 147/68 H 06/23/24 20:18 Pulse Oximetry 97 06/23/24 20:18 Oxygen Delivery Nasal Cannula 06/23/24 14:07 Oxygen Flow Rate 2 06/23/24 14:07 Medical Decision Making [facility] Narrative Medical decision making narrative: 89-year-old male present to the emergency department for evaluation for worsening exertional shortness of breath. Patient is currently afebrile with no leukocytosis and hemoglobin of 10.3. No prior hemoglobins are on file. Patient denies any active bleeding. Patient has no acute abnormalities on his CMP. Patient's troponin is less than 0.012 patient denies any exertional chest pain. Patient's pro BNP is 202. Chest x-ray shows no acute cardiopulmonary abnormality and patient's CTA PE study shows no evidence of pulmonary embolism. To the patient having worsens or spinal shortness of breath patient will be admitted for further evaluation. Differential Diagnosis Differential Diagnosis: Pneumonia, CHF, pulmonary embolism, deconditioning Medical Records Medical records reviewed: Yes I reviewed the external patient's medical records. Vital Signs Vital Signs: Vital Signs Temperature 97.8 F 06/23/24 13:51 Pulse Rate 95 06/23/24 13:51 Respiratory Rate 41 H 06/23/24 13:51 Blood Pressure 130/66 06/23/24 13:51 Pulse Oximetry 92 06/23/24 13:51 Oxygen Delivery Room Air 06/23/24 13:51 Temperature 97.9 F 06/23/24 20:18 Pulse Rate 95 06/23/24 20:18 Respiratory Rate 16 06/23/24 20:18 Blood Pressure 147/68 H 06/23/24 20:18 Pulse Oximetry 97 06/23/24 20:18 Oxygen Delivery Nasal Cannula 06/23/24 14:07 Oxygen Flow Rate 2 06/23/24 14:07 Lab Data Lab results reviewed: Yes I reviewed the patient's lab results. 06/23/24 14:10 06/23/24 14:10 Labs: Lab Results 06/23/24 Range/Units 14:10 WBC 4.3 L (4.5-10.0) K/mm3 RBC 3.92 L (4.6-6.20) M/mm3 Hgb 10.3 L (14.0-18.0) g/dL Hct 32.9 L (42.0-52.0) % MCV 83.9 (80-100) fl MCH 26.3 (26-34) pg MCHC 31.3 L (32-36) g/dl RDW 15.5 H (11.5-14.5) % Plt Count 194 (150-375) k/mm3 MPV 10.0 (7.4-10.4) fl Immature Gran % (Auto) 0.7 H (0-0.5) % Neut % (Auto) 50.1 (45.5-73.1) % Lymph % (Auto) 37.9 (18.3-44.2) % [place] % (Auto) 8.9 H (2.6-8.5) % Eos % (Auto) 1.9 (0-4.4) % Baso % (Auto) 0.5 (0.2-1.2) % Lymph # (Auto) 1.62 (0.9-3.2) K/mm3 [place] # (Auto) 0.4 (0.1-0.6) K/mm3 Eos # (Auto) 0.1 (0-0.3) K/mm3 Baso # (Auto) 0.0 (0.0-0.1) K/mm3 Abs Immat Gran (auto) 0.03 (0.00-0.031) K/mm3 Absolute Neuts (auto) 2.2 (1.3-6.7) K/mm3 Absolute Nucleated RBC 0.000 (0.0-0.012) K/mm3 Nucleated RBC % 0.0 (0.0-0.2) % PT 14.0 (11.1-14.7) Seconds INR 1.0 APTT 30.3 (22.3-36.8) Seconds Sodium 139 (137-145) mmol/L Potassium 3.7 (3.4-5.0) mmol/L Chloride 103 (98-107) mmol/L Carbon Dioxide 25 (22-30) mmol/L Anion Gap 11 (4-12) mmol/L BUN 16 (9-20) mg/dL Creatinine 0.87 (0.7-1.3) mg/dL Estim Creat Clear Calc 65 ml/min Estimated GFR > 60 (59 - ) Glucose 109 (65-110) mg/dL Calcium 8.7 (8.4-10.2) mg/dL Total Bilirubin 0.6 (0.2-1.3) mg/dL AST 34 (17-59) U/L ALT 32 (6-50) U/L Alkaline Phosphatase 79 (38-126) U/L Troponin I < 0.012 (0.000-0.034) ng/mL NT-Pro-B Natriuret Pep 202 H (19.9-100) pg/mL Total Protein 7.0 (6.3-8.2) g/dL Albumin 3.9 (3.5-5.1) g/dL Imaging Data Radiologist's impression: Impressions Chest X-Ray 06/23/24 14:26 IMPRESSION: 1. No acute cardiopulmonary disease. Chest CTA 06/23/24 16:25 IMPRESSION: 1. No pulmonary embolism or other acute cardiopulmonary disease. Sensitivity decreased in the subsegmental pulmonary arteries at the bilateral lung bases due to respiratory motion. 2. Cholelithiasis. Discharge Plan Discharge Clinical Impression: Exertional shortness of breath Patient Disposition: Still a Patient Condition: Stable
--- NOTE | 2024-06-23 18:34 | ADMGEN ---
This patient, Edwin Hickey, was admitted to 3 [facility] Surg Room 330-02. Patient/family oriented to hospital policies and general routines including ID bracelet, bed and alarms, visiting hours, pain management, procedures, bathroom and other care routines, personal items, smoking policy, room service/diet, and visiting hours. Information on how to activate the Rapid Response Team has been discussed. Patient/Family are encouraged to report perceived risks to care and to ask questions if they do not understand what they are told or what they should do.
--- NOTE | 2024-06-23 20:45 | PM.IMHP ---
H&P: HPI History of Present Illness Date/Time: 06/23/24 20:45 Chief Complaint: Shortness of breath with activity Narrative: 89-year-old male with a past medical history of morbid obesity, essential hypertension, BPH, obstructive sleep apnea on CPAP, heart valve replacement (2020), cardiac stents (2020), paroxysmal SVT and diet-controlled diabetes who presented to the ER from home due to increasing dyspnea on exertion for the last 3 weeks. He reports that he had a cardiac catheterization at [facility] performed by Dr. Pride which demonstrated no significant obstructive disease. He reports that at that time and he was told to stop his Coreg and was started on lisinopril. Since he started on lisinopril he has developed a dry cough. On review of the patient's external medication information from pharmacy of the patient was actually started on lisinopril in March. And that his Coreg with was refilled as early as this past week. He he is adamant that he stop taking his Coreg and is taking the lisinopril only. He states that he has always had dyspnea on exertion for the last couple of years he and usually is quite labored after walking about 6-10 feet. But now he is so short of breath with minimal exertion that he cannot even make it across the room. He denies any chest pain. He denies any palpitations but does have a history of what sounds like either paroxysmal SVT. He denies history of paroxysmal atrial fibrillation. He is not on any chronic anticoagulation. In the ER EKG demonstrated sinus rhythm with occasional supraventricular premature complexes. Shortly after my evaluation nursing staff called me to tell me that the patient was having variable heart rhythm including frequent premature ventricular complexes and what appeared to be atrial fibrillation. The events was not last long enough to be caught on EKG. Patient is asymptomatic for as far as his breathing as long as he is at rest. He has been compliant with his home CPAP. He denies any chest pain or increased lower extremity swelling. Review of Systems Review of Systems: 12 systems were reviewed with pertinent positives and negatives per HPI. Except as documented in the HPI, all other systems were reviewed and are negative. 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 He has 2 step children and 2 biologic children. He used to smoke 3 cigars a day or a half of pack of slim cigars a day but quit smoking cigars at least 30 years ago. He denies any history of alcohol use or illicit substance use. Code status: Full code [facility] power of workers compensation attorney: Michela Hickey () Smoking status: Former smoker Tobacco type: cigars Alcohol intake: current Substance use: never Do You Feel Safe in your Home?: Yes Lack of Transportation: No Lack of Food: Never True Current Housing: I Have Housing Concerned About Future Housing: No Difficulty Paying Gas/Electric Bills: No Difficulty Paying for Meds: No Currently Unemployed: Decline to Answer Education: High School Diploma/GED Difficulty w/ Childcare or Family Care: No Spiritual care concerns: No Meds Home Medications and Allergies Home Medications ?Medication ?Instructions ?Recorded ?Confirmed ?Type aspirin 81 mg tablet,delayed 81 mg PO DAILY 05/01/24 06/23/24 History release cholecalciferol (vitamin D3) 25 25 mcg PO DAILY 05/01/24 06/23/24 History mcg (1,000 unit) capsule coenzyme Q10 10 mg capsule 10 mg PO DAILY 05/01/24 06/23/24 History doxazosin 4 mg tablet (Cardura) 4 mg PO DAILY 05/01/24 06/23/24 History finasteride 5 mg tablet 5 mg PO DAILY 05/01/24 06/23/24 History furosemide 40 mg tablet 40 mg PO QAM 05/01/24 06/23/24 History lisinopril 20 mg tablet 20 mg PO DAILY 05/01/24 06/23/24 History loratadine 10 mg tablet (Loradamed) 10 mg PO DAILY 05/01/24 06/23/24 History mecobalamin (vitamin B12) 1,000 1,000 mcg PO DAILY 05/01/24 06/23/24 History mcg chewable tablet mv-mn-folic 200 mcg-vit K 15 1 cap PO DAILY 05/01/24 06/23/24 History mcg-lutein 5 mg-zeaxanthin 1 mg capsule (PreserVision AREDS 2 Plus Multivit) verapamil 120 mg tablet,extended 120 mg PO DAILY 05/01/24 06/23/24 History release atorvastatin 10 mg tablet 10 mg PO EVERY OTHER DAY 06/23/24 06/23/24 History Allergies Allergy/AdvReac Type Severity Reaction Status Date / Time No Known Allergies Allergy Verified 06/23/24 19:04 Vital Signs Vital Signs - 24 hr 06/23/24 13:51 06/23/24 13:58 06/23/24 13:58 Temperature 97.8 F Pulse Rate 95 101 H Respiratory Rate 41 H Blood Pressure 130/66 Pulse Oximetry 92 98 Oxygen Delivery Room Air Nasal Cannula Oxygen Flow Rate 2 06/23/24 14:07 06/23/24 14:40 06/23/24 16:04 Temperature Pulse Rate 87 109 H Respiratory Rate 19 24 H Blood Pressure 133/70 128/68 Pulse Oximetry 99 97 97 Oxygen Delivery Nasal Cannula Oxygen Flow Rate 2 06/23/24 17:35 06/23/24 18:03 06/23/24 18:55 Temperature 97.1 F L Pulse Rate 96 97 81 Respiratory Rate 24 H 24 H 16 Blood Pressure 137/61 155/72 H Pulse Oximetry 96 96 99 Oxygen Delivery Oxygen Flow Rate 06/23/24 20:18 Temperature 97.9 F Pulse Rate 95 Respiratory Rate 16 Blood Pressure 147/68 H Pulse Oximetry 97 Oxygen Delivery Oxygen Flow Rate Exam Narrative: Weight 124 kg BMI 41.6 Const: Other: Morbidly obese, no acute distress, lying in bed on his left side with nasal CPAP in place HENMT: Other: Markedly crowded posterior oropharynx, mucous membranes are dry, no oral pharyngeal erythema but exam limited due to crowding Eyes: Other: Bilateral lens implants noted, positive conjunctival pallor, no scleral icterus Neck: Other: Large neck circumference, no JVD Resp: Other: Decreased breath sounds at the bases posteriorly, clear to auscultation anteriorly Cardio: Other: Variable heart rhythm on exam seems irregularly irregular at times, no JVD, no murmur GI: Other: Obese, soft, nontender, umbilical hernia easily reducible and soft : Other: No scrotal edema Skin: Other: Generalized pallor, non jaundice Neuro: Other: Alert orient x4, speech is clear, no facial asymmetry, no localizing neurologic deficits noted during the course of conversation Extrem: Other: No cyanosis, no pitting edema, chronic venous stasis changes to lower extremities Psych: Other: Appropriate mood and affect, pleasant and cooperative, judgment and insight intact H&P: Results Labs Labs: Laboratory Tests 06/23/24 14:10 06/23/24 14:10 06/23/24 14:10 WBC 4.3 L RBC 3.92 L Hgb 10.3 L Hct 32.9 L MCV 83.9 MCH 26.3 MCHC 31.3 L RDW 15.5 H Plt Count 194 MPV 10.0 Immature Gran % (Auto) 0.7 H Neut % (Auto) 50.1 Lymph % (Auto) 37.9 [place] % (Auto) 8.9 H Eos % (Auto) 1.9 Baso % (Auto) 0.5 Lymph # (Auto) 1.62 [place] # (Auto) 0.4 Eos # (Auto) 0.1 Baso # (Auto) 0.0 Abs Immat Gran (auto) 0.03 Absolute Neuts (auto) 2.2 Absolute Nucleated RBC 0.000 Nucleated RBC % 0.0 PT 14.0 INR 1.0 APTT 30.3 Sodium 139 Potassium 3.7 Chloride 103 Carbon Dioxide 25 Anion Gap 11 BUN 16 Creatinine 0.87 Estim Creat Clear Calc 65 Estimated GFR > 60 Glucose 109 Calcium 8.7 Total Bilirubin 0.6 AST 34 ALT 32 Alkaline Phosphatase 79 Troponin I < 0.012 NT-Pro-B Natriuret Pep 202 H Total Protein 7.0 Albumin 3.9 Impressions Chest X-Ray 06/23/24 14:26 IMPRESSION: 1. No acute cardiopulmonary disease. Chest CTA 06/23/24 16:25 IMPRESSION: 1. No pulmonary embolism or other acute cardiopulmonary disease. Sensitivity decreased in the subsegmental pulmonary arteries at the bilateral lung bases due to respiratory motion. 2. Cholelithiasis. EKG: Sinus rhythm with a rate of 98 borderline left axis QTC 437 All imaging and EKGs personally reviewed and interpreted. And unless stated otherwise agree with radiologic and cardiology interpretation. Assessment and Plan Assessment and plan (1) Exertional shortness of breath: Code(s): R06.02 - Shortness of breath Status: Acute (2) Supraventricular dysrhythmia: Code(s): I49.9 - Cardiac arrhythmia, unspecified Status: Acute (3) Leukopenia: Qualifiers: Leukopenia type: unspecified Qualified Code(s): D72.819 - Decreased white blood cell count, unspecified Code(s): D72.819 - Decreased white blood cell count, unspecified Status: Acute (4) History of heart valve replacement: Onset Date: ~09/2020 Code(s): Z95.2 - Presence of prosthetic heart valve Status: Acute (5) Obstructive sleep apnea on CPAP: Code(s): G47.33 - Obstructive sleep apnea (adult) (pediatric) Status: Acute Plan Patient is having dyspnea on exertion I suspect that his dyspnea on exertion is due to paroxysmal rhythm changes with AFib and were episodes of SVT with frequent premature ventricular complexes. At this time I feel patient would be best served by resuming Coreg that he discontinued recently. Will also hold the lisinopril as this is been causing him a dry cough. He reports he has not had a echocardiogram in about a year will obtain echocardiogram to further evaluate cardiac structure and function. Will monitor closely on telemetry for at incidence of dysrhythmia. Will continue home verapamil. The patient's acquisition cost estimator is not at our facility. If symptoms persists despite the changes we may need to consult our acquisition cost estimator. However patient would prefer to follow-up with his own acquisition cost estimator if possible. Patient would also likely benefit from ambulatory pulse oximetry to rule out hypoxia with exertion. Will continue home CPAP/BiPAP. Patient did have some mild leukopenia will check viral panel to rule out underlying respiratory illness. Although patient is not complaining of cough or other symptoms that would suggest this. Patient has been admitted as observation status. Quality VTE Prophylaxis VTE prophylaxis: pharmacologic ordered (Lovenox 40 mg subQ daily.) Hospitalist MIPS Advance Care Plan I have confirmed that the patient's Advanced Care Plan is present, code status is documented, or surrogate decision maker is listed in patient medical record.: Yes Medication Reconciliation I have utilized all available resources to obtain, update and review the patients current medications (includes all prescriptions, OTC, herbals, cannabis, and nutritional supplements).: Yes
[2024-06-23] MEDS: ATORVASTATIN 10 MG TABLET PO (21:35)
[2024-06-23 21:42] LABS: Influenza A QL RT-PCR Negative (Negative); Influenza B QL RT-PCR Negative (Negative); RSV RNA, RT-PCR Negative (Negative); SARS-CoV-2 RNA PCR Negative (Negative)
[2024-06-24] VITALS (9 sets, daily range): BP systolic 95–136; BP diastolic 54–57; PULSE 75–117; RESP 16–18; TEMP 36.4–36.8; O2SAT 94–100
--- NOTE | 2024-06-24 | ECHO_ITS ---
Patient Info Name: Edwin Hickey Age: 89 years : 1935 Gender: Male Ht: 68 in Wt: 273 lbs BSA: 2.50 m2 HR: 101 bpm BP: 136 / 57 mmHg Heart Rhythm: Sinus Rhythm Technical Quality: Fair Exam Date: 06/24/2024 9:36 AM Patient Status: I Admit Date: 06/24/2024 Exam Type: CA echo doppler color flow Complete two-dimensional, color flow and Doppler transthoracic echocardiogram is performed. Staff Referring Physician: Ady Krueger DO Spinner Hydraulic: Keysha Horn Attending Provider: Nelson Hollingsworth Summary 1. Complete two-dimensional, color flow and Doppler transthoracic echocardiogram is performed. 2. Left ventricular chamber dimension is normal. 3. Left ventricular systolic function is normal, estimated at 65-70. 4. The left ventricular diastolic function is grade I diastolic dysfunction. 5. E/e' 15 is elevated. 6. Left atrial chamber dimension is moderately enlarged. 7. Right atrial chamber dimension is mildly enlarged. 8. Bioprosthetic aortic valve. 9. The mitral valve has a moderately calcified annulus. 10. Mild pulmonary hypertension, estimated pulmonary arterial systolic pressure is 40 mmHg. Left Ventricle E/e' 15 is elevated. Left ventricular chamber dimension is normal. Left ventricular systolic function is normal, estimated at 65-70. The left ventricular diastolic function is grade I diastolic dysfunction. Right Ventricle Right ventricular chamber dimension is normal. Right ventricular systolic function is normal and with normal TAPSE 1.8 cm. Left Atria Left atrial chamber dimension is moderately enlarged. Right Atria Right atrial chamber dimension is mildly enlarged. Aortic Valve The bioprosthetic aortic valve is not well visualized. There is no bioprosthetic aortic valve stenosis based on normal valve area and gradients. There is no regurgitation of the bioprosthetic aortic valve. Bioprosthetic aortic valve. Pulmonic Valve There is no pulmonic regurgitation. Mitral Valve The mitral valve has a moderately calcified annulus. There is no mitral valve stenosis. There is no mitral valve regurgitation. Tricuspid Valve There is no tricuspid valve regurgitation. Mild pulmonary hypertension, estimated pulmonary arterial systolic pressure is 40 mmHg. Pericardium/Pleural There is no pericardial effusion. Inferior Vena Cava Normal inferior vena cava with >50% collapse upon inspiration consistent with normal right atrial pressure, 5 mmHg. Aorta The aortic root size at the sinus of Valsalva is normal. Left Ventricular Outflow Tract Name Value Normal LVOT 2D LVOT Diameter 2.3 cm LVOT Doppler LVOT Peak Velocity 139 cm/s LVOT Peak Gradient 8 mmHg LVOT Mean Gradient 4 mmHg LVOT VTI 25 cm LVOT VTI/AV VTI Ratio 0.9 LVOT Stroke Volume 101 ml LVOT CO 21.8 l/min LVOT CI 8.7 l/min/m2 Pulmonic Valve Name Value Normal RVOT Doppler RVOT Peak Velocity 86 cm/s RVOT Peak Gradient 3 mmHg PV Doppler PV Peak Velocity 102 cm/s PV Peak Gradient 4 mmHg Mitral Valve Name Value Normal MV Diastolic Function MV E Peak Velocity 74 cm/s MV A Peak Velocity 155 cm/s MV E/A 0.5 MV Decel Time (PW) 158 ms MV Annular TDI MV E/e' (Septal) 19.0 MV E/e' (Lateral) 12.6 MV E/e' (Average) 15.8 Tricuspid Valve Name Value Normal TV Regurgitation Doppler TR Peak Velocity 295 cm/s TR Peak Gradient 35 mmHg Estimated PAP/RSVP RA Pressure 5 mmHg <=5 PA Systolic Pressure 40 mmHg <36 RV Systolic Pressure 40 mmHg <36 TV Annular TDI TV Lateral Miladys s' Velocity 12.7 cm/s >=9.5 Aortic Valve Name Value Normal AV Doppler AV Peak Velocity 168 cm/s AV Peak Gradient 11 mmHg AV Mean Gradient 6 mmHg AV VTI 28 cm AV Area (Cont Eq VTI) 3.6 cm2 >=3.0 AV Area (Cont Eq Eliazar) 3.3 cm2 AV DI (Eliazar) 0.83 AV Regurgitation 2D LVOT Area 4.0 cm2 Ventricles Name Value Normal LV Dimensions 2D/MM IVS Diastolic Thickness (2D) 1.5 cm 0.6-1.0 LVID Diastole (2D) 4.2 cm 4.2-5.8 LVIW Diastolic Thickness (2D) 1.2 cm 0.6-1.0 LVID Systole (2D) 2.8 cm 2.5-4.0 LVOT Diameter 2.3 cm LV Mass (2D Cubed) 217.07 g 88.00-224.00 LV Mass Index (2D Cubed) 87 g/m2 49-115 Relative Wall Thickness (2D) 0.55 <=0.42 LV Fractional Shortening/Ejection Fraction 2D/MM LV Fractional Shortening (2D) 39 % 25-43 LV EF (2D Teichholz) 63 % LV Diastolic Volume (4C MOD) 115 ml LV EF (4C MOD) 64 % LV Diastolic Volume (2C MOD) 103 ml LV EF (2C MOD) 63 % LV Diastolic Volume (BP MOD) 106 ml 62-150 LV Diastolic Volume Index (BP MOD) 43 ml/m2 34-74 LV Systolic Volume (BP MOD) 43 ml 21-61 LV Systolic Volume Index (BP MOD) 17 ml/m2 11-31 LV EF (BP MOD) 60 % 52-72 LV Diastolic Length (4C) 7.7 cm LV Systolic Length (4C) 5.5 cm LV Stroke Volume (4C MOD) 73 ml Atria Name Value Normal LA Dimensions LA Volume (4C A-L) 99 ml LA Volume (BP A-L) 90 ml RA Dimensions RA Systolic Major [place] Length (4C) 6.5 cm 2.1-2.7 RA Area (4C) 20.4 cm2 <=18.0 Report Signatures
--- NOTE | 2024-06-24 01:27 | PCDIET ---
Patient is asleep and resting in bed with home CPAP on. No resp distress noted. O2 sats 95%. Heart rhythm on monitor has been SV, Afib, SR with rate into the 120's non-sustained. Micha Oneill called, made aware and stated aware and that she scheduled Echo for in the morning and will place order for Coreg 12.5 BID. Patient is SR 94 at this time.
[2024-06-24 06:58] LABS: Basophils Percent Auto 0.5 % (0.2-1.2); Eosinophils Absolute Auto 0.1 K/mm3 (0-0.3); Eosinophils Percent Auto 3.5 % (0-4.4); Hematocrit 31.4 % (42.0-52.0); Hemoglobin 9.6 g/dL (14.0-18.0); Immature Granulocyte Absolute 0.04 K/mm3 (0.00-0.031); Lymphocytes Absolute Auto 1.17 K/mm3 (0.9-3.2); Lymphocytes Percent Auto 29.3 % (18.3-44.2); Mean Corpuscular HGB Conc 30.6 g/dl (32-36); Mean Corpuscular Hemoglobin 26.2 pg (26-34); Mean Corpuscular Volume 85.6 fl (80-100); Monocytes Absolute Auto 0.3 K/mm3 (0.1-0.6); Monocytes Percent Auto 8.3 % (2.6-8.5); Neutrophils Absolute Auto 2.3 K/mm3 (1.3-6.7); Neutrophils Percent Auto 57.4 % (45.5-73.1); Platelet Count Result 184 k/mm3 (150-375); Red Blood Count 3.67 M/mm3 (4.6-6.20); Red Cell Distribution Width 15.5 % (11.5-14.5)
[2024-06-24 07:03] LABS: Anion Gap 6 mmol/L (4-12); Blood Urea Nitrogen 15 mg/dL (9-20); Calcium 8.5 mg/dL (8.4-10.2); Carbon Dioxide 28 mmol/L (22-30); Chloride 105 mmol/L (98-107); Estimated CRCL calculation 62 ml/min; Estimated Glomerular Filt Rate > 60; Glucose 125 mg/dL (65-110); Magnesium 1.9 mg/dL (1.6-2.3); Sodium 139 mmol/L (137-145)
--- NOTE | 2024-06-24 07:57 | P.PNIM_ITS ---
Progress Note: A&P Assessment and Plan (1) Exertional shortness of breath: Code(s): R06.02 - Shortness of breath Status: Acute Assessment and Plan: * Monitor vital signs, I&Os, BUN/creatinine, daily weights, neuro status and patient is a fall risk * Monitor serum electrolytes, Keep serum Potassium>4 and serum Magnesium>2 and CBC * Symptoms: Exertional SOB * BNP: 202 * EKG: Sinus rhythm w/ occasional SVC * Chest XR:No acute cardiopulmonary disease. * Chest CTA: No pulmonary embolism or other acute cardiopulmonary disease. * Sensitivity decreased in the subsegmental pulmonary arteries at the bilateral lung bases due to respiratory motion. * Echo: Pending * SOB likely 2/2 paroxysmal rhythm changes w/ Afib along w/ episodes of SVT w/ PVCs (2) History of heart valve replacement: Onset Date: ~09/2020 Code(s): Z95.2 - Presence of prosthetic heart valve Status: Acute Assessment and Plan: * ~09/2020 * Originally on Coreg, recently started Lisinopril and stopped taking Coreg per Cardiology * Will restart Coreg and continue verapamil (3) Obstructive sleep apnea on CPAP: Code(s): G47.33 - Obstructive sleep apnea (adult) (pediatric) Status: Acute Assessment and Plan: * CPAP ordered (4) Leukopenia: Qualifiers: Leukopenia type: unspecified Qualified Code(s): D72.819 - Decreased white blood cell count, unspecified Code(s): D72.819 - Decreased white blood cell count, unspecified Status: Acute Assessment and Plan: * Could be 2/2 underlying repiratory illness * Respiratory ROS unremarkable * Viral panel negative Subjective Date/time seen: 06/24/24 07:57 Interval history: 89-year-old male with a past medical history of morbid obesity, essential hypertension, BPH, obstructive sleep apnea on CPAP, heart valve replacement and diet-controlled diabetes who presented to the ER from home due to increasing dyspnea on exertion for the last 3 weeks. 06/24/2024 Patient sitting comfortably in bed at time of exam. Denies any chest pain, shortness of breath, n/v, or abdominal pain. At time of exam pt was getting ec hocardiogram. He states that he feels much better today than yesterday, and that while ambulating to restroom today and last night, he did not feel short of breath. Will obtain a walking pulse ox reading as well as will consult cardiology regarding worsening dyspnea w/ exertion. Review of Systems Review of Systems: 12 systems were reviewed with pertinent positives and negatives per HPI. Except as documented in the HPI, all other systems were reviewed and are negative. Exam Narrative: Weight 124 kg BMI 41.6 Const: Other: Morbidly obese, no acute distress, lying in bed on his left side with nasal CPAP in place HENMT: Other: Markedly crowded posterior oropharynx, mucous membranes are dry, no oral pharyngeal erythema but exam limited due to crowding Eyes: Other: Bilateral lens implants noted, positive conjunctival pallor, no scleral icterus Neck: Other: Large neck circumference, no JVD Resp: Other: Decreased breath sounds at the bases posteriorly, clear to auscultation anteriorly Cardio: Other: Variable heart rhythm on exam seems irregularly irregular at times, no JVD, no murmur GI: Other: Obese, soft, nontender, umbilical hernia easily reducible and soft : Other: No scrotal edema Skin: Other: Generalized pallor, non jaundice Neuro: Other: Alert orient x4, speech is clear, no facial asymmetry, no localizing neurologic deficits noted during the course of conversation Extrem: Other: No cyanosis, no pitting edema, chronic venous stasis changes to lower extremities Psych: Other: Appropriate mood and affect, pleasant and cooperative, judgment and insight intact Objective Data Vital Signs Vital Signs: Vital Signs - 24 hr 06/23/24 13:51 06/23/24 13:58 06/23/24 13:58 Temperature 97.8 F Pulse Rate 95 101 H Respiratory Rate 41 H Blood Pressure 130/66 Pulse Oximetry 92 98 Oxygen Delivery Room Air Nasal Cannula Oxygen Flow Rate 2 06/23/24 14:07 06/23/24 14:40 06/23/24 16:04 Temperature Pulse Rate 87 109 H Respiratory Rate 19 24 H Blood Pressure 133/70 128/68 Pulse Oximetry 99 97 97 Oxygen Delivery Nasal Cannula Oxygen Flow Rate 2 06/23/24 17:35 06/23/24 18:03 06/23/24 18:55 Temperature 97.1 F L Pulse Rate 96 97 81 Respiratory Rate 24 H 24 H 16 Blood Pressure 137/61 155/72 H Pulse Oximetry 96 96 99 Oxygen Delivery Oxygen Flow Rate 06/23/24 20:00 06/23/24 20:18 06/23/24 23:45 Temperature 97.9 F Pulse Rate 94 95 92 Respiratory Rate 16 Blood Pressure 147/68 H Pulse Oximetry 97 96 Oxygen Delivery Autopap Oxygen Flow Rate 06/24/24 00:00 06/24/24 04:00 06/24/24 05:35 Temperature 98.2 F Pulse Rate 99 93 95 Respiratory Rate 16 Blood Pressure 136/57 L Pulse Oximetry 100 Oxygen Delivery Oxygen Flow Rate Intake/Output Intake/Output: Intake & Output 06/21/24 06/22/24 06/23/24 06/24/24 23:59 23:59 23:59 23:59 Intake Total 600 Output Total 2 Balance 598 Meds/Results Medications: Active Medications Generic Name Dose Route Start Last Admin Trade Name Freq PRN Reason Stop Dose Admin Aspirin 81 mg 06/24/24 09:00 Aspirin 81 Mg Enteric Tablet PO DAILY AZUCENA Atorvastatin Calcium 10 mg 06/23/24 21:00 06/23/24 21:35 Atorvastatin 10 Mg Tablet PO 10 mg Q48H AZUCENA Administration Carvedilol 12.5 mg 06/24/24 09:00 Carvedilol 12.5 Mg Tablet PO Q12HR AZUCENA Cyanocobalamin 1,000 mcg 06/24/24 09:00 Cyanocobalamin 1,000 Mcg Tablet PO QAM [facility] Doxazosin Mesylate 4 mg 06/24/24 09:00 Doxazosin Mesylate 4 Mg Tablet PO DAILY [facility] Enoxaparin Sodium 40 mg 06/24/24 09:00 Enoxaparin 40 Mg/0.4 Ml Syringe SUB-Q DAILY AZUCENA Finasteride 5 mg 06/24/24 09:00 Finasteride 5 Mg Tablet PO DAILY AZUCENA Furosemide 40 mg 06/24/24 09:00 Furosemide 40 Mg Tablet PO QAM [facility] Loratadine 10 mg 06/24/24 09:00 Loratadine 10 Mg Tablet PO DAILY [facility] Multivitamins/Minerals 1 tablet 06/24/24 09:00 Opti-Gen Tab PO QAM AZUCENA Nonformulary 1 each 06/23/24 21:01 Nutritional XX 06/24/24 21:00 Supplementnonformula PRN PRN ry Drug (Coenzyme PROTOCOL Q10 10 Mg Capsule) Perflutren Lipid Microsphere 0 ml 06/23/24 20:42 Perflutren Lipid Microspheres 1.5 Ml Vial Diluted To 10 Ml Total Volume IV PUSH 06/26/24 20:42 ONCE PRN adequate visualization Protocol Verapamil HCl 120 mg 06/24/24 08:00 Verapamil Hcl Er 120 Mg Tablet PO DAILY@0800 [facility] Vitamin D 1,000 units 06/24/24 09:00 Cholecalciferol 1,000 Units Tablet PO DAILY [facility] Radiology Results: ITS Impressions Chest X-Ray 06/23/24 14:26 IMPRESSION: 1. No acute cardiopulmonary disease. Chest CTA 06/23/24 16:25 IMPRESSION: 1. No pulmonary embolism or other acute cardiopulmonary disease. Sensitivity decreased in the subsegmental pulmonary arteries at the bilateral lung bases due to respiratory motion. 2. Cholelithiasis. Labs Labs: Laboratory Results - last 24 hr 06/23/24 06/23/24 06/24/24 14:10 20:57 06:27 WBC 4.3 L 4.0 L RBC 3.92 L 3.67 L Hgb 10.3 L 9.6 L Hct 32.9 L 31.4 L MCV 83.9 85.6 MCH 26.3 26.2 MCHC 31.3 L 30.6 L RDW 15.5 H 15.5 H Plt Count 194 184 MPV 10.0 10.0 Immature Gran % (Auto) 0.7 H 1.0 H Neut % (Auto) 50.1 57.4 Lymph % (Auto) 37.9 29.3 [place] % (Auto) 8.9 H 8.3 Eos % (Auto) 1.9 3.5 Baso % (Auto) 0.5 0.5 Lymph # (Auto) 1.62 1.17 [place] # (Auto) 0.4 0.3 Eos # (Auto) 0.1 0.1 Baso # (Auto) 0.0 0.0 Abs Immat Gran (auto) 0.03 0.04 H Absolute Neuts (auto) 2.2 2.3 Absolute Nucleated RBC 0.000 0.000 Nucleated RBC % 0.0 0.0 PT 14.0 INR 1.0 APTT 30.3 Sodium 139 139 Potassium 3.7 4.0 Chloride 103 105 Carbon Dioxide 25 28 Anion Gap 11 6 BUN 16 15 Creatinine 0.87 0.91 Estim Creat Clear Calc 65 62 Estimated GFR > 60 > 60 Glucose 109 125 H Calcium 8.7 8.5 Magnesium 1.9 Total Bilirubin 0.6 AST 34 ALT 32 Alkaline Phosphatase 79 Troponin I < 0.012 NT-Pro-B Natriuret Pep 202 H Total Protein 7.0 Albumin 3.9 Influenza A (RT-PCR) Negative Influenza B (RT-PCR) Negative RSV (RT-PCR) Negative SARS-CoV-2 RNA (RT-PCR) Negative Quality VTE Prophylaxis VTE prophylaxis: pharmacologic ordered (Lovenox 40 mg subQ daily.)
[2024-06-24] MEDS: CHOLECALCIFEROL 1,000 UNITS TABLET 1000 UNITS PO (09:20)
[2024-06-24] MEDS: FUROSEMIDE 40 MG TABLET PO (09:20)
[2024-06-24] MEDS: carvediloL 12.5 MG TABLET PO ×2 (09:20→20:53)
[2024-06-24] MEDS: LORATADINE 10 MG TABLET PO (09:20)
[2024-06-24] MEDS: CYANOCOBALAMIN 1,000 MCG TABLET 1000 MCG PO (09:20)
[2024-06-24] MEDS: OPTI-GEN TAB 1 TABLET PO (09:20)
[2024-06-24] MEDS: FINASTERIDE 5 MG TABLET PO (09:21)
[2024-06-24] MEDS: ASPIRIN 81 MG ENTERIC TABLET PO (09:21)
[2024-06-24] MEDS: VERAPAMIL HCL ER 120 MG TABLET PO (09:21)
[2024-06-24] MEDS: DOXAZOSIN MESYLATE 4 MG TABLET PO (09:21)
[2024-06-24] MEDS: ENOXAPARIN 40 MG/0.4 ML SYRINGE SUB-Q (09:28)
--- NOTE | 2024-06-24 12:22 | PM.CNCAR ---
Assessment and Plan Assessment and plan (1) Exertional shortness of breath: Code(s): R06.02 - Shortness of breath Status: Acute Assessment and Plan: AK r/o by serial troponin. Obtain echo. Obtain lexiscan myoview. (2) History of transcatheter aortic valve replacement (TAVR): Code(s): Z95.2 - Presence of prosthetic heart valve Status: Acute (3) Essential hypertension: Code(s): I10 - Essential (primary) hypertension Status: Acute Assessment and Plan: Stable. (4) Hyperlipidemia: Code(s): E78.5 - Hyperlipidemia, unspecified Status: Acute Assessment and Plan: On Atorvastatin. (5) PVC's (premature ventricular contractions): Code(s): I49.3 - Ventricular premature depolarization Status: Acute Assessment and Plan: Tele shows PVC's and 4 beat VT. Resume Coreg (6) CAD (coronary artery disease): Code(s): I25.10 - Atherosclerotic heart disease of deering coronary artery without angina pectoris Status: Acute Assessment and Plan: Stable. History of Present Illness History of Present Illness Consult date/time: 06/24/24 12:22 Reason For Visit: Exertional shortness of breath Narrative: 89 yr old man presents to ER with MOSCOSO. He has a history of TAVR with bioprosthetic AVR in 2020, CAD with 2 stents last one in 2020, hypertension, dyslipidemia, ALEXA on CPAP. His regular international logistics analyst is Dr. Pride with [facility]. is at bedside. States for last few weeks he noted more MOSCOSO walking only 6-10 feet now. Denies chest pain, orthopnea, PND, edema, dizziness. Review of Systems Review of Systems: All systems reviewed & are unremarkable except as noted in HPI and below Constitutional: Constitutional: Reports as per HPI, Denies chills, Reports fatigue and Denies fever(s) Cardiovascular: Cardiovascular: Reports as per HPI, Denies chest pain and Denies irregular heart rhythm Respiratory: Respiratory: Reports as per HPI and Reports dyspnea on exertion Gastrointestinal: Gastrointestinal: Reports as per HPI and Denies abdominal pain Genitourinary: Genitourinary: Reports as per HPI and Denies dysuria Musculoskeletal: Musculoskeletal: Reports as per HPI Neurologic: Reports as per HPI, Denies dizziness and Denies syncope [facility] Past Medical History Medical History (Updated 06/24/24 @ 12:27 by Ady Krueger DO) BMI greater than 40 History of skin cancer Resected from the left leg 2024 Diet-controlled diabetes mellitus BPH (benign prostatic hyperplasia) Obstructive sleep apnea on CPAP Essential hypertension Hyperlipidemia Surgical History Surgical History (Updated 06/23/24 @ 20:53 by Jennifer Dennison DO) Status post cataract extraction of both eyes with insertion of intraocular lens History of total bilateral knee replacement History of heart valve replacement (~09/2020) History of cardiac catheterization Social History Social History (Updated 06/24/24 @ 08:02 by Jennifer Dennison DO) Social History: The patient lives with his of 47 years. He has 2 step children and 2 biologic children. He used to smoke 3 cigars a day or a half of pack of slim cigars a day but quit smoking cigars at least 30 years ago. He denies any history of alcohol use or illicit substance use. Code status: Full code Healthcare power of clam digger: Michela Hickey () Smoking status: Former smoker Tobacco type: cigars Alcohol intake: current Substance use: never Do You Feel Safe in your Home?: Yes Lack of Transportation: No Lack of Food: Never True Current Housing: I Have Housing Concerned About Future Housing: No Difficulty Paying Gas/Electric Bills: No Difficulty Paying for Meds: No Currently Unemployed: Decline to Answer Education: High School Diploma/GED Difficulty w/ Childcare or Family Care: No Spiritual care concerns: No Meds Home Medications and Allergies Home Medications ?Medication ?Instructions ?Recorded ?Confirmed ?Type aspirin 81 mg tablet,delayed 81 mg PO DAILY 05/01/24 06/23/24 History release cholecalciferol (vitamin D3) 25 25 mcg PO DAILY 05/01/24 06/23/24 History mcg (1,000 unit) capsule coenzyme Q10 10 mg capsule 10 mg PO DAILY 05/01/24 06/23/24 History doxazosin 4 mg tablet (Cardura) 4 mg PO DAILY 05/01/24 06/23/24 History finasteride 5 mg tablet 5 mg PO DAILY 05/01/24 06/23/24 History furosemide 40 mg tablet 40 mg PO QAM 05/01/24 06/23/24 History lisinopril 20 mg tablet 20 mg PO DAILY 05/01/24 06/23/24 History loratadine 10 mg tablet (Loradamed) 10 mg PO DAILY 05/01/24 06/23/24 History mecobalamin (vitamin B12) 1,000 1,000 mcg PO DAILY 05/01/24 06/23/24 History mcg chewable tablet mv-mn-folic 200 mcg-vit K 15 1 cap PO DAILY 05/01/24 06/23/24 History mcg-lutein 5 mg-zeaxanthin 1 mg capsule (PreserVision AREDS 2 Plus Multivit) verapamil 120 mg tablet,extended 120 mg PO DAILY 05/01/24 06/23/24 History release atorvastatin 10 mg tablet 10 mg PO EVERY OTHER DAY 06/23/24 06/23/24 History Allergies Allergy/AdvReac Type Severity Reaction Status Date / Time No Known Allergies Allergy Verified 06/23/24 19:04 Vital Signs Vital Signs - 24 hr 06/23/24 13:51 06/23/24 13:58 06/23/24 13:58 Temperature 97.8 F Pulse Rate 95 101 H Respiratory Rate 41 H Blood Pressure 130/66 Pulse Oximetry 92 98 Oxygen Delivery Room Air Nasal Cannula Oxygen Flow Rate 2 06/23/24 14:07 06/23/24 14:40 06/23/24 16:04 Temperature Pulse Rate 87 109 H Respiratory Rate 19 24 H Blood Pressure 133/70 128/68 Pulse Oximetry 99 97 97 Oxygen Delivery Nasal Cannula Oxygen Flow Rate 2 06/23/24 17:35 06/23/24 18:03 06/23/24 18:55 Temperature 97.1 F L Pulse Rate 96 97 81 Respiratory Rate 24 H 24 H 16 Blood Pressure 137/61 155/72 H Pulse Oximetry 96 96 99 Oxygen Delivery Oxygen Flow Rate 06/23/24 20:00 06/23/24 20:18 06/23/24 23:45 Temperature 97.9 F Pulse Rate 94 95 92 Respiratory Rate 16 Blood Pressure 147/68 H Pulse Oximetry 97 96 Oxygen Delivery Autopap Oxygen Flow Rate 06/24/24 00:00 06/24/24 04:00 06/24/24 05:35 Temperature 98.2 F Pulse Rate 99 93 95 Respiratory Rate 16 Blood Pressure 136/57 L Pulse Oximetry 100 Oxygen Delivery Oxygen Flow Rate 06/24/24 08:00 06/24/24 08:00 Temperature Pulse Rate 117 H Respiratory Rate Blood Pressure Pulse Oximetry 100 Oxygen Delivery Nasal Cannula Oxygen Flow Rate 2.5 Exam Const: General: cooperative, healthy appearing, comfortable and overweight Resp: Auscultation: clear to auscultation bilaterally, no crackles, no rales, no rhonchi and no wheezes Cardio: Rate: regular rate Rhythm: regular rhythm Heart sounds: no murmurs Peripheral pulses: dorsalis pedis present GI: GI Palp: No abdominal tenderness and Yes Soft to palpation Neuro: General: oriented to person, oriented to place and oriented to time Extrem: Right lower extremity: no edema Left lower extremity: no edema Results Labs and Meds 06/24/24 06:27 06/24/24 06:27 Lab results: Cardiac Enzymes 06/23/24 Range/Units 14:10 AST 34 (17-59) U/L Troponin I < 0.012 (0.000-0.034) ng/mL Coagulation 06/23/24 Range/Units 14:10 PT 14.0 (11.1-14.7) Seconds APTT 30.3 (22.3-36.8) Seconds CBC 06/23/24 06/24/24 Range/Units 14:10 06:27 WBC 4.3 L 4.0 L (4.5-10.0) K/mm3 RBC 3.92 L 3.67 L (4.6-6.20) M/mm3 Hgb 10.3 L 9.6 L (14.0-18.0) g/dL Hct 32.9 L 31.4 L (42.0-52.0) % Plt Count 194 184 (150-375) k/mm3 Lymph # (Auto) 1.62 1.17 (0.9-3.2) K/mm3 [place] # (Auto) 0.4 0.3 (0.1-0.6) K/mm3 Eos # (Auto) 0.1 0.1 (0-0.3) K/mm3 Baso # (Auto) 0.0 0.0 (0.0-0.1) K/mm3 Comprehensive Metabolic Panel 06/23/24 06/24/24 Range/Units 14:10 06:27 Sodium 139 139 (137-145) mmol/L Potassium 3.7 4.0 (3.4-5.0) mmol/L Chloride 103 105 (98-107) mmol/L Carbon Dioxide 25 28 (22-30) mmol/L BUN 16 15 (9-20) mg/dL Creatinine 0.87 0.91 (0.7-1.3) mg/dL Glucose 109 125 H (65-110) mg/dL Calcium 8.7 8.5 (8.4-10.2) mg/dL AST 34 (17-59) U/L ALT 32 (6-50) U/L Alkaline Phosphatase 79 (38-126) U/L Total Protein 7.0 (6.3-8.2) g/dL Albumin 3.9 (3.5-5.1) g/dL Intake and Output 06/23/24 06/24/24 06/24/24 23:59 07:59 15:59 Intake Total 600 240 Output Total 2 Balance 598 240 Intake: Oral 600 240 Output: Urine 2 Other: Number of Bowel Movements Today 1
[2024-06-25] VITALS (9 sets, daily range): BP systolic 112–128; BP diastolic 56–62; PULSE 65–88; RESP 16–18; TEMP 36.2; O2SAT 94–99
--- NOTE | 2024-06-25 07:58 | P.PNCA_ITS ---
Progress Note: A&P Assessment and Plan (1) Exertional shortness of breath: Code(s): R06.02 - Shortness of breath Status: Acute Assessment and Plan: MT r/o by serial troponin. 06/24/24 Echo: EF 65-70%, grade I diastolic dysfunction (E/e' 15), mod LAE, mild KEERTHI, bioprosthetic AV with normal function, mod MAC, RVSP 40 mmHg. Obtain lexiscan myoview. If negative no further cardiac workup is needed. His regular travelers' aid worker is Dr. Pride and may keep regular f/u with him. (2) History of transcatheter aortic valve replacement (TAVR): Code(s): Z95.2 - Presence of prosthetic heart valve Status: Acute Assessment and Plan: Stable. (3) Essential hypertension: Code(s): I10 - Essential (primary) hypertension Status: Acute Assessment and Plan: Stable. (4) Hyperlipidemia: Code(s): E78.5 - Hyperlipidemia, unspecified Status: Acute Assessment and Plan: On Atorvastatin. (5) PVC's (premature ventricular contractions): Code(s): I49.3 - Ventricular premature depolarization Status: Acute Assessment and Plan: Tele shows PVC's and 4 beat VT. Resumed Coreg. (6) CAD (coronary artery disease): Code(s): I25.10 - Atherosclerotic heart disease of [place] coronary artery without angina pectoris Status: Acute Assessment and Plan: Stable. Subjective Date/time seen: 06/25/24 07:58 Interval history: No chest pain. No sob at rest. Exam Const: General: cooperative, healthy appearing, comfortable and overweight Nutritional Appearance: overweight Orientation/consciousness: oriented to person, oriented to place and oriented to time Resp: Auscultation: clear to auscultation bilaterally, no crackles, no rales, no rhonchi and no wheezes Cardio: Rate: regular rate Rhythm: regular rhythm Heart sounds: no murmurs Peripheral pulses: dorsalis pedis present Neuro: General: oriented to person, oriented to place and oriented to time Extrem: Right lower extremity: no edema Left lower extremity: no edema Objective Data Vital Signs Vital Signs: Vital Signs - 24 hr 06/24/24 08:00 06/24/24 08:00 06/24/24 08:00 Temperature Pulse Rate 117 H Respiratory Rate Blood Pressure Pulse Oximetry 100 100 Oxygen Delivery Nasal Cannula Nasal Cannula Oxygen Flow Rate 2.5 2.5 06/24/24 12:00 06/24/24 14:00 06/24/24 16:00 Temperature 97.9 F Pulse Rate 75 94 91 Respiratory Rate 18 Blood Pressure 95/55 L Pulse Oximetry 94 Oxygen Delivery Oxygen Flow Rate 06/24/24 20:00 06/24/24 20:00 06/24/24 20:53 Temperature 97.5 F L Pulse Rate 96 79 93 Respiratory Rate 16 Blood Pressure 128/54 L Pulse Oximetry 99 Oxygen Delivery Oxygen Flow Rate 06/25/24 00:00 06/25/24 04:00 06/25/24 06:00 Temperature 97.2 F L Pulse Rate 78 88 85 Respiratory Rate 16 Blood Pressure 128/56 L Pulse Oximetry 97 Oxygen Delivery Oxygen Flow Rate Intake/Output Intake/Output: Intake & Output 06/22/24 06/23/24 06/24/24 06/25/24 23:59 23:59 23:59 23:59 Intake Total 2870 Output Total 2 Balance 2868 Meds/Results Medications: Active Medications Generic Name Dose Route Start Last Admin Trade Name Freq PRN Reason Stop Dose Admin Aspirin 81 mg 06/24/24 09:00 06/24/24 09:21 Aspirin 81 Mg Enteric Tablet PO 81 mg DAILY AZUCENA Administration Atorvastatin Calcium 10 mg 06/23/24 21:00 06/23/24 21:35 Atorvastatin 10 Mg Tablet PO 10 mg Q48H AZUCENA Administration Carvedilol 12.5 mg 06/24/24 09:00 06/24/24 20:53 Carvedilol 12.5 Mg Tablet PO 12.5 mg Q12HR AZUCENA Administration Cyanocobalamin 1,000 mcg 06/24/24 09:00 06/24/24 09:20 Cyanocobalamin 1,000 Mcg Tablet PO 1,000 mcg QAM AZUCENA Administration Doxazosin Mesylate 4 mg 06/24/24 09:00 06/24/24 09:21 Doxazosin Mesylate 4 Mg Tablet PO 4 mg DAILY AZUCENA Administration Enoxaparin Sodium 40 mg 06/24/24 09:00 06/24/24 09:28 Enoxaparin 40 Mg/0.4 Ml Syringe SUB-Q 40 mg DAILY AZUCENA Administration Finasteride 5 mg 06/24/24 09:00 06/24/24 09:21 Finasteride 5 Mg Tablet PO 5 mg DAILY AZUCENA Administration Furosemide 40 mg 06/24/24 09:00 06/24/24 09:20 Furosemide 40 Mg Tablet PO 40 mg QAM AZUCENA Administration Loratadine 10 mg 06/24/24 09:00 06/24/24 09:20 Loratadine 10 Mg Tablet PO 10 mg DAILY AZUCENA Administration Multivitamins/Minerals 1 tablet 06/24/24 09:00 06/24/24 09:20 Opti-Gen Tab PO 1 tablet QAM AZUCENA Administration Perflutren Lipid Microsphere 0 ml 06/23/24 20:42 Perflutren Lipid Microspheres 1.5 Ml Vial Diluted To 10 Ml Total Volume IV PUSH 06/26/24 20:42 ONCE PRN adequate visualization Protocol Verapamil HCl 120 mg 06/24/24 08:00 06/24/24 09:21 Verapamil Hcl Er 120 Mg Tablet PO 120 mg DAILY@0800 AZUCENA Administration Vitamin D 1,000 units 06/24/24 09:00 06/24/24 09:20 Cholecalciferol 1,000 Units Tablet PO 1,000 units DAILY AZUCENA Administration Radiology Results: ITS Impressions Chest X-Ray 06/23/24 14:26 IMPRESSION: 1. No acute cardiopulmonary disease. Chest CTA 06/23/24 16:25 IMPRESSION: 1. No pulmonary embolism or other acute cardiopulmonary disease. Sensitivity decreased in the subsegmental pulmonary arteries at the bilateral lung bases due to respiratory motion. 2. Cholelithiasis. Labs Labs: Laboratory Results - last 24 hr 06/24/24 06:27 TSH (Reflex) 2.020
--- NOTE | 2024-06-25 08:00 | EST_ITS ---
Patient Info Name: Edwin Hickey Age: 89 years : 1935 Gender: Male Ht: 68 in Wt: 274 lbs BSA: 2.50 m2 HR: 89 bpm BP: 146 / 71 mmHg Exam Date: 06/25/2024 8:00 AM Patient Status: I Admit Date: 06/24/2024 Exam Type: CA stress guilherme w NM A regadenoson stress test was performed. Staff Referring Physician: Ady Krueger DO Attending Provider: Nelson Hollingsworth Exercise Technologist: Anusha Lindo Exercise Physician: Ady Krueger DO Summary 1. 1. Negative lexiscan stress test for ischemic ST changes by ECG criteria. 2. 2. Baseline hypertension. 3. 3. Nuclear scan to follow and will be reported separately. Please correlate with it. 4. 4. Patient informed of the above results. Protocol: Lexiscan Stress ECG Details Stage: REST Duration (min): 1 min : 59 sec HR (bpm): 86 SBP (mmHg): 146 DBP (mmHg): 71 Stage: REST Duration (min): 4 min : 53 sec HR (bpm): 90 SBP (mmHg): 146 DBP (mmHg): 71 Stage: STAGE 1 Duration (min): 0 min : 59 sec HR (bpm): 97 SBP (mmHg): 150 DBP (mmHg): 58 Stage: RECOVERY Duration (min): 1 min : 0 sec HR (bpm): 102 SBP (mmHg): 150 DBP (mmHg): 58 Stage: RECOVERY Duration (min): 2 min : 0 sec HR (bpm): 101 SBP (mmHg): 150 DBP (mmHg): 58 Stage: RECOVERY Duration (min): 3 min : 0 sec HR (bpm): 102 SBP (mmHg): 130 DBP (mmHg): 51 Stage: RECOVERY Duration (min): 3 min : 3 sec HR (bpm): 101 SBP (mmHg): 130 DBP (mmHg): 51 Rest HR: 90 bpm Peak HR: 103 bpm Rest Sys BP: 146 mmHg Peak Sys BP: 150 mmHg Max Pred HR: 131 bpm % Max Pred HR: 79 % Target HR: 111 bpm Max RPP: 15,450 bpm*mmHg Termination Reason: Completed protocol Cardiac Symptoms: Shortness of breath Total Time: 1 min : 0 sec Rest Goldsmith BP: 71 mmHg Peak Goldsmith BP: 58 mmHg Total Dose: 0.4 mg Resting ECG Sinus rhythm. Stress ECG No ST changes. Arrhythmias None. Report Signatures
--- NOTE | 2024-06-25 08:06 | P.PNIM_ITS ---
Progress Note: A&P Assessment and Plan (1) Exertional shortness of breath: Code(s): R06.02 - Shortness of breath Status: Acute Assessment and Plan: * Monitor vital signs, I&Os, BUN/creatinine, daily weights, neuro status and patient is a fall risk * Monitor serum electrolytes, Keep serum Potassium>4 and serum Magnesium>2 and CBC * Symptoms: Exertional SOB * BNP: 202 * EKG: Sinus rhythm w/ occasional SVC * Chest XR:No acute cardiopulmonary disease. * Chest CTA: No pulmonary embolism or other acute cardiopulmonary disease. * Sensitivity decreased in the subsegmental pulmonary arteries at the bilateral lung bases due to respiratory motion. * Echo: Pending * SOB likely 2/2 paroxysmal rhythm changes w/ Afib along w/ episodes of SVT w/ PVCs (2) History of heart valve replacement: Onset Date: ~09/2020 Code(s): Z95.2 - Presence of prosthetic heart valve Status: Acute Assessment and Plan: * ~09/2020 * Originally on Coreg, recently started Lisinopril and stopped taking Coreg per Cardiology * Will restart Coreg and continue verapamil (3) Obstructive sleep apnea on CPAP: Code(s): G47.33 - Obstructive sleep apnea (adult) (pediatric) Status: Acute Assessment and Plan: * CPAP ordered (4) Leukopenia: Qualifiers: Leukopenia type: unspecified Qualified Code(s): D72.819 - Decreased white blood cell count, unspecified Code(s): D72.819 - Decreased white blood cell count, unspecified Status: Acute Assessment and Plan: * Could be 2/2 underlying repiratory illness * Respiratory ROS unremarkable * Viral panel negative Subjective Date/time seen: 06/25/24 08:06 Interval history: 89-year-old male with a past medical history of morbid obesity, essential hypertension, BPH, obstructive sleep apnea on CPAP, heart valve replacement and diet-controlled diabetes who presented to the ER from home due to increasing dyspnea on exertion for the last 3 weeks. 06/25/2024 Review of Systems Review of Systems: 12 systems were reviewed with pertinent positives and negatives per HPI. Except as documented in the HPI, all other systems were reviewed and are negative. Exam Narrative: Weight 124 kg BMI 41.6 Const: Other: Morbidly obese, no acute distress, lying in bed on his left side with nasal CPAP in place HENMT: Other: Markedly crowded posterior oropharynx, mucous membranes are dry, no oral pharyngeal erythema but exam limited due to crowding Eyes: Other: Bilateral lens implants noted, positive conjunctival pallor, no scleral icterus Neck: Other: Large neck circumference, no JVD Resp: Other: Decreased breath sounds at the bases posteriorly, clear to auscultation anteriorly Cardio: Other: Variable heart rhythm on exam seems irregularly irregular at times, no JVD, no murmur GI: Other: Obese, soft, nontender, umbilical hernia easily reducible and soft : Other: No scrotal edema Skin: Other: Generalized pallor, non jaundice Neuro: Other: Alert orient x4, speech is clear, no facial asymmetry, no localizing neurologic deficits noted during the course of conversation Extrem: Other: No cyanosis, no pitting edema, chronic venous stasis changes to lower extremities Psych: Other: Appropriate mood and affect, pleasant and cooperative, judgment and insight intact Objective Data Vital Signs Vital Signs: Vital Signs - 24 hr 06/24/24 12:00 06/24/24 14:00 06/24/24 16:00 Temperature 97.9 F Pulse Rate 75 94 91 Respiratory Rate 18 Blood Pressure 95/55 L Pulse Oximetry 94 06/24/24 20:00 06/24/24 20:00 06/24/24 20:53 Temperature 97.5 F L Pulse Rate 96 79 93 Respiratory Rate 16 Blood Pressure 128/54 L Pulse Oximetry 99 06/25/24 00:00 06/25/24 04:00 06/25/24 06:00 Temperature 97.2 F L Pulse Rate 78 88 85 Respiratory Rate 16 Blood Pressure 128/56 L Pulse Oximetry 97 Intake/Output Intake/Output: Intake & Output 06/22/24 06/23/24 06/24/24 06/25/24 23:59 23:59 23:59 23:59 Intake Total 2870 Output Total 2 Balance 2868 Meds/Results Medications: Active Medications Generic Name Dose Route Start Last Admin Trade Name Freq PRN Reason Stop Dose Admin Aspirin 81 mg 06/24/24 09:00 06/24/24 09:21 Aspirin 81 Mg Enteric Tablet PO 81 mg DAILY AZUCENA Administration Atorvastatin Calcium 10 mg 06/23/24 21:00 06/23/24 21:35 Atorvastatin 10 Mg Tablet PO 10 mg Q48H AZUCENA Administration Carvedilol 12.5 mg 06/24/24 09:00 06/24/24 20:53 Carvedilol 12.5 Mg Tablet PO 12.5 mg Q12HR AZUCENA Administration Cyanocobalamin 1,000 mcg 06/24/24 09:00 06/24/24 09:20 Cyanocobalamin 1,000 Mcg Tablet PO 1,000 mcg QAM AZUCENA Administration Doxazosin Mesylate 4 mg 06/24/24 09:00 06/24/24 09:21 Doxazosin Mesylate 4 Mg Tablet PO 4 mg DAILY AZUCENA Administration Enoxaparin Sodium 40 mg 06/24/24 09:00 06/24/24 09:28 Enoxaparin 40 Mg/0.4 Ml Syringe SUB-Q 40 mg DAILY AZUCENA Administration Finasteride 5 mg 06/24/24 09:00 06/24/24 09:21 Finasteride 5 Mg Tablet PO 5 mg DAILY AZUCENA Administration Furosemide 40 mg 06/24/24 09:00 06/24/24 09:20 Furosemide 40 Mg Tablet PO 40 mg QAM [facility] Administration Loratadine 10 mg 06/24/24 09:00 06/24/24 09:20 Loratadine 10 Mg Tablet PO 10 mg DAILY [facility] Administration Multivitamins/Minerals 1 tablet 06/24/24 09:00 06/24/24 09:20 Opti-Gen Tab PO 1 tablet QAM [facility] Administration Perflutren Lipid Microsphere 0 ml 06/23/24 20:42 Perflutren Lipid Microspheres 1.5 Ml Vial Diluted To 10 Ml Total Volume IV PUSH 06/26/24 20:42 ONCE PRN adequate visualization Protocol Verapamil HCl 120 mg 06/24/24 08:00 06/24/24 09:21 Verapamil Hcl Er 120 Mg Tablet PO 120 mg DAILY@0800 [facility] Administration Vitamin D 1,000 units 06/24/24 09:00 06/24/24 09:20 Cholecalciferol 1,000 Units Tablet PO 1,000 units DAILY AZUCENA Administration Radiology Results: ITS Impressions Chest X-Ray 06/23/24 14:26 IMPRESSION: 1. No acute cardiopulmonary disease. Chest CTA 06/23/24 16:25 IMPRESSION: 1. No pulmonary embolism or other acute cardiopulmonary disease. Sensitivity decreased in the subsegmental pulmonary arteries at the bilateral lung bases due to respiratory motion. 2. Cholelithiasis. Quality VTE Prophylaxis VTE prophylaxis: pharmacologic ordered (Lovenox 40 mg subQ daily.)
[2024-06-25] MEDS: CHOLECALCIFEROL 1,000 UNITS TABLET 1000 UNITS PO (10:10)
[2024-06-25] MEDS: VERAPAMIL HCL ER 120 MG TABLET PO (10:10)
[2024-06-25] MEDS: OPTI-GEN TAB 1 TABLET PO (10:10)
[2024-06-25] MEDS: CYANOCOBALAMIN 1,000 MCG TABLET 1000 MCG PO (10:10)
[2024-06-25] MEDS: DOXAZOSIN MESYLATE 4 MG TABLET PO (10:11)
[2024-06-25] MEDS: ASPIRIN 81 MG ENTERIC TABLET PO (10:11)
[2024-06-25] MEDS: FUROSEMIDE 40 MG TABLET PO (10:11)
[2024-06-25] MEDS: ENOXAPARIN 40 MG/0.4 ML SYRINGE SUB-Q (10:11)
[2024-06-25] MEDS: LORATADINE 10 MG TABLET PO (10:11)
[2024-06-25] MEDS: carvediloL 12.5 MG TABLET PO (10:11)
[2024-06-25] MEDS: FINASTERIDE 5 MG TABLET PO (10:11)
--- NOTE | 2024-06-25 14:34 | PCRCNOTE ---
HOME O2 EVAL COMPLETE. NO REQUIREMENTS NEEDED. RN NOTIFIED.
--- NOTE | 2024-06-25 14:40 | PM.DS ---
DS: Admitting Diagnosis Discharge Date 06/25/2024 Admitting Diagnosis Exertional shortness of breath Supraventricular dysrhythmia DS: Discharge Diagnosis Discharge Diagnosis (1) Exertional shortness of breath: Code(s): R06.02 - Shortness of breath Status: Acute (2) History of heart valve replacement: Onset Date: ~09/2020 Code(s): Z95.2 - Presence of prosthetic heart valve Status: Acute (3) Obstructive sleep apnea on CPAP: Code(s): G47.33 - Obstructive sleep apnea (adult) (pediatric) Status: Acute (4) Leukopenia: Qualifiers: Leukopenia type: unspecified Qualified Code(s): D72.819 - Decreased white blood cell count, unspecified Code(s): D72.819 - Decreased white blood cell count, unspecified Status: Acute DS: Summary Hospital Course Reason for hospitalization: Shortness of breath with activity Hospital Course: 89-year-old male with a past medical history of morbid obesity, essential hypertension, BPH, obstructive sleep apnea on CPAP, heart valve replacement (2020), cardiac stents (2020), paroxysmal SVT and diet-controlled diabetes who presented to the ER from home due to increasing dyspnea on exertion for the last 3 weeks. He reports that he had a cardiac catheterization at [facility] performed by Dr. Pride which demonstrated no significant obstructive disease. He reports that at that time and he was told to stop his Coreg and was started on lisinopril. Since he started on lisinopril he has developed a dry cough. On review of the patient's external medication information from pharmacy of the patient was actually started on lisinopril in March. And that his Coreg with was refilled as early as this past week. He he is adamant that he stop taking his Coreg and is taking the lisinopril only. He states that he has always had dyspnea on exertion for the last couple of years he and usually is quite labored after walking about 6-10 feet. But now he is so short of breath with minimal exertion that he cannot even make it across the room. He denies any chest pain. He denies any palpitations but does have a history of what sounds like either paroxysmal SVT. He denies history of paroxysmal atrial fibrillation. He is not on any chronic anticoagulation. In the ER EKG demonstrated sinus rhythm with occasional supraventricular premature complexes. Shortly after my evaluation nursing staff called me to tell me that the patient was having variable heart rhythm including frequent premature ventricular complexes and what appeared to be atrial fibrillation. The events was not last long enough to be caught on EKG. Patient is asymptomatic for as far as his breathing as long as he is at rest. He has been compliant with his home CPAP. He denies any chest pain or increased lower extremity swelling. Cardiology was consulted regarding exertional shortness of breath. Echocardiogram was ordered which showed normal left ventricular systolic function and chamber dimension. Showed grade 1 diastolic dysfunction, E/e' 15, elevated. Left atrial chamber dimension moderately enlarged, RA mildly enlarged, bioprosthetic aortic valve, mild pulmonary hypertension. CA ruled by serial troponin. Lexiscan Myoview obtained which showed myocardial perfusion during stress with LV EF measuring 66%. Patient showed PVCs and for the PT on telemetry, but stable on Coreg. Blood work unremarkable besides mild leukopenia, viral panel was obtained and was negative. Underlying respiratory illness could be cause, but patient denies any cough or URI symptoms. Likely incidental finding. The patient is otherwise hemodynamically stable. Home O2 evaluation was obtained and patient did not need any further O2 supplementation upon discharge. He has been able to work with physical therapy and has been able to ambulate to the bathroom without any shortness of breath. 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 Patient is amenable to discharge at this time. Plan for discharge home Status at Discharge Functional status at discharge: independent ambulation Overall status at discharge: patient is progressing back to baseline Time Spent with Patient Time attestation: Total time spent providing and/or coordinating discharge services: 45 Exam Narrative: Weight 124 kg BMI 41.6 Const: Other: Morbidly obese, no acute distress, lying in bed on his left side with nasal CPAP in place HENMT: Other: Mucous membranes are moist, no oral pharyngeal erythema but exam limited due to crowding Eyes: Other: Bilateral lens implants noted, positive conjunctival pallor, no scleral icterus Neck: Other: Large neck circumference, no JVD Resp: Other: clear to auscultation bilaterally, no crackles, no rales, no rhonchi and no wheezes Cardio: Other: Variable heart rhythm on exam seems irregularly irregular at times, no JVD, no murmur GI: Other: Obese, soft, nontender, umbilical hernia easily reducible and soft Skin: Other: Generalized pallor, non jaundice Neuro: Other: Alert orient x4, speech is clear, no facial asymmetry, no localizing neurologic deficits noted during the course of conversation Extrem: Other: No cyanosis, no pitting edema, chronic venous stasis changes to lower extremities Psych: Other: Appropriate mood and affect, pleasant and cooperative, judgment and insight intact Discharge Plan Discharge Attending physician on discharge: Nelson Hollingsworth Consulting providers: Ady Krueger Discharging Clinician: Nelson Hollingsworth Anticipated Discharge Date/Time: 06/25/24 14:36 Patient Disposition: Home Activity: as tolerated Diet: as tolerated Discharge Instructions: Take medications as prescribed Maintain a cardiac diet, 2 g sodium, do not over hydrate Remain active Monitor urine output Daily weights, if you gain more than 3 lb within 1 day or 5 lb in 1 week notify your primary care provider. If you develop chest pain, shortness breath, fever greater than 101, nausea, or vomiting notify a clinician or come to the emergency department. Follow-up with primary care provider within 1-2 weeks. Thank you for [facility] for your healthcare needs Patient Instructions: Antibiotic Form Patient Language: Wallisian Stand Alone Forms: General Discharge Information Follow-up/Referrals: Peter,MD Lance [Primary Care Provider] - Ady Krueger DO [Physician] - Discharge Medications: Continued loratadine [Loradamed] 10 mg tablet 10 mg PO DAILY finasteride 5 mg tablet 5 mg PO DAILY cholecalciferol (vitamin D3) 25 mcg (1,000 unit) capsule 25 mcg PO DAILY coenzyme Q10 10 mg capsule 10 mg PO DAILY PreserVision AREDS 2 Plus MV 200 mcg-15 mcg- 5 mg-1 mg capsule 1 cap PO DAILY mecobalamin (vitamin B12) 1,000 mcg tablet,chewable 1,000 mcg PO DAILY aspirin 81 mg tablet,delayed release (DR/EC) 81 mg PO DAILY furosemide 40 mg tablet 40 mg PO QAM doxazosin [Cardura] 4 mg tablet 4 mg PO DAILY verapamil 120 mg tablet extended release 120 mg PO DAILY lisinopril 20 mg tablet 20 mg PO DAILY atorvastatin 10 mg tablet 10 mg PO EVERY OTHER DAY Date of admission: 06/24/24 10:50 Primary Care Provider: TatianaLance Admitting Provider: Teagan Kim Attending physician on admission: Nelson Hollingsworth Condition: Stable Quality VTE Prophylaxis VTE prophylaxis: pharmacologic ordered (Lovenox 40 mg subQ daily.)
== END 2024-06-25 15:20 | disposition home or self-care (01) | DRG 309 ==
LOC: ANHED 16:56 → ANH3MEDSUR 17:58
PROVIDERS: Internal Medicine; Admitting Provider Internal Medicine; Emergency Provider Emergency Medicine; PCP Internal Medicine; Visit Provider Physician Assistant
DX: I49.3 Ventricular premature depolarization (principal); I47.19 Other supraventricular tachycardia; Z68.41 Body mass index [BMI] 40.0-44.9, adult; R06.02 Shortness of breath; D72.819 Decreased white blood cell count, unspecified; E66.01 Morbid (severe) obesity due to excess calories; E11.9 Type 2 diabetes mellitus without complications; E78.5 Hyperlipidemia, unspecified; G47.33 Obstructive sleep apnea (adult) (pediatric); I10 Essential (primary) hypertension; I25.10 Atherosclerotic heart disease of native coronary artery without angina pectoris; N40.0 Benign prostatic hyperplasia without lower urinary tract symptoms; R05.8 Other specified cough; Z99.89 Dependence on other enabling machines and devices; Z95.5 Presence of coronary angioplasty implant and graft; Z85.828 Personal history of other malignant neoplasm of skin; Z98.41 Cataract extraction status, right eye; Z98.42 Cataract extraction status, left eye; Z96.1 Presence of intraocular lens; Z96.653 Presence of artificial knee joint, bilateral; Z87.891 Personal history of nicotine dependence; Z79.82 Long term (current) use of aspirin; Z20.822 Contact with and (suspected) exposure to COVID-19; Z95.2 Presence of prosthetic heart valve
CPT/HCPCS: 36415; 71045; 71275; 78452; 80048; 80053; 83735; 83880; 84443; 84484; 85025; 85610; 85730; 87637; 93005; 93017; 93306; 94618; 96372; 96374; 99285; A9270; A9502; G0378; J1650; J2785; Q9967

== ENCOUNTER 2024-07-02 07:51 | Outpatient (CLI) | payer MEDICARE, SELFPAY ==
--- OUTSIDE RECORDS SUMMARY | 2024-07-02 07:56 | XMS_ITS | Referral Summary ---
Author Organization [facility] Address [address] [place] [address] Care Team Providers Care Cribber Name Role Phone Lance Green MD Primary Care Provider + [phone] Jean Pierre Snyder MD Unavailable Allergies No [...] 10 mg by mouth daily Active vit C,Q-Dd-fskqj-agus tein-zeaxan [id number] kp-ybao-ej-mg capsule Take 1 capsule by mouth daily [...] (08/28/2019): Added automatically from request for surgery [id number] Hypertension Coronary artery disease Hyperlipidemia BPH (benign [...] than three times a week 09/24/2019 [facility]ends [employer] Not on file 09/23 Do you belong to any clubs o r organizations such as oriental orthodox groups, unions, fraternal or athletic groups, or [...] on file 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 Gender Identity Not on file Sexual Orientation Not on file Last Filed Vital Signs Vital Sign Reading Time Taken Comments Blood Pressure 136/68 12/19/2022 2:32 PM PANEL EDGE PAINTER Pulse 76 12/19/2022 2:32 PM PANEL EDGE PAINTER Temperature 36.6 C (97.9 F) 12/19/2022 2:32 PM PANEL EDGE PAINTER Respiratory Rate 18 12/19/2022 2:32 PM PANEL EDGE PAINTER Oxygen Saturation 96% 12/19/2022 2:32 PM PANEL EDGE PAINTER Inhaled Oxygen Concentration - - Weight 131.3 kg (289 lb 8 oz) 12/19/2022 2:32 PM PANEL EDGE PAINTER Height 172.7 cm (5' 8) 11/26/2022 11:42 AM CDT Body Mass Index 44.02 11/26/2022 11:42 AM CDT Plan of Treatment Not on file Medical Devices Implanted Type Area Photographer Motion Picture Device Identifier Shelf Expiration Date Model / Serial / Lot [employer] Evproplus-34us Valve 34mm Aortic Evolut Pro+ - [id number] - [id number] Implanted:Qty: 1 on 09/23/2019 by Jean Pierre Snyder MD at [facility] [employer] 02/25/2021 EVPROPLUS-3 4 / [id number] / Procedures Procedure Name Priority Date/Time Associated Diagnosis Comments EGFR Routine 11/20/2022 4:14 AM CDT HEMOGLOBIN A1C Routine 11/19/2022 8:32 PM CDT LIPID PANEL Timed 01/22/2020 12:33 AM PANEL EDGE PAINTER from Last 3 Months or Most Recently [...] BLOOD ORDERABLES Bonnie welsh Result KEVIN ELIAS [id number] [place] [address] * (ABNORMAL) Hemoglobin A1c (11/19/2022 8:32 PM CDT) Hgb A1C 6.4(H) 4.0 - 5.6 % Estimated Average Glucose 137 mg/dL KEVIN ELIAS Comment: The ADA recommends reporting an estimated Average Glucose (eAG) with all Hemoglobin A1c results using the equation derived from a study of 507 normal and diabetic adults. Minority populations were underrepresented and children were not included. (Diabetes Care 31:7230-7629, 2008). The eAG is not equivalent to a fasting glucose. Blood 11/19/2022 8:32 PM CDT 11/19/2022 8:41 PM CDT us Bassem Bolton NP LAB BLOOD ORDERABLES Bonnie anitha Result KEVIN ELIAS [address] [place] [address] * (ABNORMAL) Lipid panel (01/22/2020 12:33 AM PANEL EDGE PAINTER) Cholesterol 138 30 - 199 mg/dL KEVIN [...] KEVIN Blood specimen (specimen) 01/22/2020 12:33 AM PANEL EDGE PAINTER 01/22/2020 12:51 AM PANEL EDGE PAINTER Narrative KEVIN ELIAS - 01/22/2020 1:58 AM PANEL EDGE PAINTER This lipid panel was automatically ordered due to a critical delta for Troponin- T. The dietary status of the patient at the collection time should be correlated with the lipid results. us Valeriy Colbert MD LAB BLOOD [place] [address] [address] [facility] [place] [address] from Last 3 Months or Most Recently Relevant to Health Maintenance Insurance [facility] MEDICARE ADVANTAGE [facility] MED[facility] Address: [address] [address] [place] [address] [facility] MEDICARE ADVANTAGE [facility] MED[facility] Address: [address] [address] [place] [address] [facility] MEDICARE ADVANTAGE [facility] MEDIC[facility] Address: [facility] [address] [place] [address] Advance Directives For more information, please contact: [phone] Documents on File Type Date Recorded 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
--- OUTSIDE RECORDS SUMMARY | 2024-07-02 07:56 | XMS_ITS | Clinical Summary ---
Author Organization [facility] Address [address] [place] [address] Care Team Providers Care Janitor Helper Name Role Phone Lance Green MD Primary Care Provider [phone] Source Comments [facility],non-owned Affiliates and Associated Physician Practices is amultiple site organization consisting of ambulatory clinics and hospital sitesin [place], [place], [place] and [place]. This disclosure is being madepursuant to the Care Everywhere program and may not contain all information available regarding this patient. Last updated 17.[facility] Allergies No known active allergies Medications * Be aware that medications may not be up to date on this document. Alwaysverify current medications with the patient. Cholecalciferol (VITAMIN D-3 PO) Take 50,000 Units by mouth every 7 days Active Cyanocobalamin (VITAMIN B-12 PO) Active vitamin D, ergocalciferol, (Drisdol) 1.25 MG (83296 UT) capsule TAKE 1 CAPSULE BY MOUTH [...] 04/25/2024 11:20 AM CDT Clinical Support [facility] - Ophthalmology [address] [place] [phone] Antione Yu, OD Glaucoma suspect of both eyes (Primary Dx) 04/25/2024 11:00 AM CDT Office Visit [facility] - Ophthalmology [address] [place] [phone] Antione Yu, OD Glaucoma suspect of both [...] on file 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 Gender Identity Not on file Sexual Orientation [...] 8:39 AM CDT Height 170.2 cm (5' 7) 09/05/2017 8:39 AM CDT Body Mass Index 46.2 09/05/2017 8:39 AM CDT Plan of Treatment Upcoming Encounters Date Type Department Care Team (Late st Contact Info) Description 04/27/2025 10:00 AM CDT Office Visit [facility] [address] [place] [address] Antione Yu, SEBASTIAN [address] [place] [address] Health Maintenance Due Date Last [...] this topic Medical Devices Implanted Type Area Seat Joiner Device Identifier Shelf Expiration Date Model / Serial / Lot Lens Iol +22.5 Ethan Hpt C Bcnvx Tecnis - [id number] Implanted:Qty: 1 on 08/15/2017 by Amador Roman MD at [facility] Left: Eye [employer] 05/14/2020 [id number] / [id number] / Lens Iol +23.5 Ethan Hpt C Bcnvx Tecnis - [id number] Implanted:Qty: 1 on 09/05/2017 by Amador Roman MD at [facility] Right: Eye [employer] 06/18/2020 [id number] / [id number] / Procedures Procedure Name Priority Date/Time Associated [...] inal Result from Last 3 Months Insurance [facility] MEDIC[facility] ADV [facility] MANA[facility] MEDICARE ADV SELF PAY NO INSURANCE Member Subscriber Plan / Payer (Ef fective for All Dates) Name:Edwin Hickey Member ID:Not on file Relation to Subscriber:Not on file Name:EDWIN HICKEY Subscriber ID:Not on file (Home) Address: [address] [place] [address] Payer ID:Not on file Group ID:Not on file Type:Self Pay Address: [place], [place] Advance Directives * Full Code (Latest Code Status on File) Date Activated Date Inactivated Comments 09/05/2017 8:25 AM 09/05/2017 11:33 AM * Full Code Date Activated Date Inactivated Comments 08/15/2017 2:32 PM 08/15/2017 4:02 PM * Full Code Date Activated Date Inactivated Comments 08/15/2017 12:33 PM 08/15/2017 2:32 PM Care Teams Janitor Helper Relationship Specialty Start Date End Date Lance Green MD [address] [place] [address] PCP - General 07/06/17
--- OUTSIDE RECORDS SUMMARY | 2024-07-02 07:56 | XMS_ITS | CONTINUITY OF CARE DOCUMENT ---
Author Name ron velasquez Address Unknown Organization [facility] Address [address] [place] [address] Phone [phone] Care Team Providers Care Testing Tech Name Role Phone Claudio MEJIA, Jean Pierre Unavailable [phone] SHAWNEE GONZALEZ MD Unavailable [phone] SHAWNEE GONZALEZ MD Unavailable [phone] PROBLEMS Condition Status Date Provider Notes PREDIABETES; active Bernard Gutierrez MD Vitamin D deficiency active Bernard Santiago B12 deficiency active Bernard Gutierrez MD Aortic sclerosis active Conrado Beckford MD OBESITY active ? 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 Chet Taylor RN Sleep apnea--on C-pap active Jean Pierre Santiago Chest pain active Jean Pierre Snyder MD CAD s/p stent to LAD, L circ (03/2015) active Jean Pierre Snyder MD VENOUS INSUFFICIENCY active Jean Pierre Snyder MD Leg numbness active Jean Pierre Snyder MD Tobacco use, quit active Bernard Gutierrez MD Preoperative cardiovascular examination active Jean Pierre Snyder MD Aortic stenosis, severe- s/p TAVR active Us zehra Snyder MD Abnormal nuclear stress test active Jean Pierre lagunas MD HFpEF active Jean Pierre Snyder MD ENCOUNTERS Date Type Provider Location Encounter Diag nosis - In-person encounter Office Visit Jean Pierre Snyder MD [facility] - In-person encounter Office Visit Jean Pierre Snyder MD [facility] Abnormal nuclear stress testHFpEF - In-person encounter Office Visit Jean Pierre Snyder MD [facility] - In-person encounter Office Visit Jean Pierre Snyder MD [facility] - In-person encounter Office Visit Jean Pierre Snyder MD [facility] - In-person encounter Office Visit Jean Pierre Snyder MD [facility] Aortic stenosis, severe- s/p TAVR - In-person encounter Office Visit Jean Pierre Snyder MD [facility] - In-person encounter Office Visit Jean Pierre Snyder MD [facility] - In-person encounter Office Visit Jean Pierre Snyder MD [facility] - In-person encounter Office Visit Jean Pierre Snyder MD [facility] - In-person encounter Office Visit Jean Pierre Snyder MD [facility] - In-person encounter Office Visit Jean Pierre Snyder MD [facility] - In-person encounter Office Visit Jean Pierre Snyder MD [facility] - In-person encounter Office Visit Jean Pierre Snyder MD [facility] - In-person encounter Office Visit Jean Pierre Snyder MD [facility] - In-person encounter Office Visit Jean Pierre Snyder MD [facility] - In-person encounter Office Visit Jean Pierre Snyder MD [facility] - In-person encounter Office Visit Jean Pierre Snyder MD [facility] Aortic stenosis, severe- s/p TAVR - In-person encounter Office Visit Jean Pierre Snyder MD [facility] - In-person encounter Office Visit Jean Pierre Snyder MD [facility] Aortic stenosis, severe- s/p TAVR - In-person encounter Office Visit Jean Pierre Snyder MD [facility] - In-person encounter Office Visit Jean Pierre Snyder MD [facility] - In-person encounter Office Visit Jean Pierre Snyder MD [facility] Preoperative cardiovascular examination - In-person encounter Office Visit Bernard Gutierrez MD [facility] Tobacco use, quit - In-person encounter Office Visit Jean Pierre Snyder MD [facility] Leg numbness - In-person encounter Office Visit Jean Pierre Snyder MD [facility] - In-person encounter Office Visit Conrado Beckford MD [facility] Aortic sclerosis - In-person encounter Office Visit Jean Pierre Snyder MD [facility] VENOUS INSUFFICIENCY - In-person encounter Office Visit Jean Pierre Synder MD [facility] - In-person encounter Office Visit Jean Pierre Snyder MD [facility] - In-person encounter Office Visit Jean Pierre Snyder MD [facility] CAD s/p stent to LAD, L circ (03/2015) - In-person encounter Office Visit Jean Pierre Snyder MD [facility] Sleep apnea--on C-papChest pain - In-person encounter Office Visit Jean Pierre Snyder MD [facility] Aortic sclerosisBradycardia - In-person encounter Office Visit Jean Pierre Snyder MD [facility] Sleep apnea--on C-pap - In-person encounter Office Visit Jean Pierre Snyder MD [facility] - In-person encounter Office Visit Jean Pierre Snyder MD [facility] Aortic sclerosisOBESITYHTN ESSENTIAL-02/15 RT STRESS NEGSVT- 1994HypercholesterolemiaBra dycardiaSHORTNESS OF BREATH-09/17 NUC NEG VITAL SIGNS Date Observation Value Provider Body Mass Index (Ratio) 42.87 kg/m2 Mary Grace Snyder MD oxygen saturation, oximetry 97 % [facility] pulse rate 100 /min Olga Ventimig [facility] blood pressure, diastolic 82 mm[Hg] Am neftaly Ventimiglia [facility] blood pressure, systolic 134 mm[Hg] Ulysses nda [facility] respiratory rate E&M 16 /min [facility] height E&M 68 [in_i] Olga Ventimig [facility] weight E&M 282 [lb_av] Olga Ventimig [facility] Body Mass Index (Ratio) 44.24 kg/m2 Mary Grace Snyder MD blood pressure, diastolic 80 mm[Hg] Narciso Carter blood pressure, systolic 167 mm[Hg] Yandy Carter oxygen saturation, oximetry 96 % Roz Carter pulse rate 75 /min Roz [place] respiratory rate E&M 14 /[facility]&M 291 [lb_av] [facility] height E&M 68 [in_i] [facility] blood pressure, cuff size regular Narciso de guzman [place] Body Mass Index (Ratio) 44.55 kg/m2 Mary Grace Snyder MD blood pressure, diastolic 55 mm[Hg] [facility] blood pressure, systolic 121 mm[Hg] [facility] oxygen saturation, oximetry 94 % [facility] pulse rate 73 /min [facility] respiratory rate E&M 14 /min [facility] weight E&M 293 [lb_av] [facility] height E&M 68 [in_i] [facility] blood pressure, cuff size regular [facility] Body Mass Index (Ratio) 44.55 kg/m2 Mary [...] [employer]Logic blood pressure, cuff size large Fa [facility] blood pressure, diastolic 64 mm[Hg] [facility] blood pressure, systolic 148 mm[Hg] [facility], oximetry 92 % [facility] respiratory rate E&M 16 /min Ana Luisa Figueroa iller pulse rate 83 /min [facility] weight E&M 296 [lb_av] [facility] height E&M 68 [in_i] [facility] Body Mass Index (Ratio) 45.46 kg/m2 Mary Grace Snyder MD pulse rate 82 /min Eran y blood pressure, cuff size large [facility] blood pressure, diastolic 74 mm[Hg] Ravi [facility] blood pressure, systolic 129 mm[Hg] [facility] respiratory rate E&M 12 /min Eran oxygen saturation, oximetry 94 % [facility] weight E&M 299 [lb_av] Eran y height E&M 68 [in_i] [facility] y Body Mass Index (Ratio) 45.00 kg/m2 Mary Grace Snyder MD blood pressure, diastolic 64 mm[Hg] Hannah nichols Cavazos blood pressure, systolic 166 mm[Hg] [facility] liyah Cavazos oxygen saturation, oximetry 98 % Faith Cavazos pulse rate 89 /min Faith santiago weight E&M 296 [lb_av] Faith santiago [...] Taylor RN blood pressure, systolic 151 mm[Hg] Ceht Taylor RN oxygen saturation, oximetry 95 % [...] blood pressure, cuff size regular Kr isty [place] blood pressure, diastolic 70 mm[Hg] Kr isty [place] blood pressure, systolic 140 mm[Hg] Kri sty Liban pulse rate 85 /min Kathrine Liban oxygen saturation, oximetry 94 % Kathrine Liban respiratory rate E&M 18 /min Kathrine [place] weight E&M 283 [lb_av] Kathrine [place] blood pressure, resting No Keny ty Liban height E&M 66.5 [in_i] Kathrine Liban Body Mass Index (Ratio) 44.51 kg/m2 Mary Grace Snyder MD blood pressure, resting Yes Keny ty [place] blood pressure, cuff size regular Kr isty Liban blood pressure, diastolic 80 mm[Hg] Kr isty [place] blood pressure, systolic 140 mm[Hg] Kri sty Liban respiratory rate E&M 18 /min Kathrine [place] pulse rate 86 /min Kathrine Elizabethby oxygen [...] % Chastity Chris pulse rate 73 /min [facility] respiratory rate E&M 16 /min Idastit Chris weight E&M 300 [lb_av] [facility] height E&M 66.5 [in_i] [facility] Body Mass Index (Ratio) 47.21 kg/m2 Mary Grace Snyder MD blood pressure, diastolic 70 mm[Hg] Ray angulo [place] blood pressure, systolic 120 mm[Hg] Leanne Elizabethby respiratory rate E&M 19 /min Kathrine [place] oxygen saturation, oximetry 95 % Kathrine [place] pulse rate 71 /min Kathrine Liban weight E&M 297 [lb_av] Kathrine Liban blood pressure, cuff size regular Kr kev Elizabethby height E&M 66.5 [in_i] Kathrine [place] Body Mass Index (Ratio) 47.56 kg/m2 Mary Grace Snyder MD blood pressure, diastolic 71 mm[Hg] Samreen Normanemi Parikh blood pressure, systolic 148 mm[Hg] Barbara Edwardfanta Parikh oxygen saturation, oximetry 97 % Juni Parikh respiratory rate E&M 20 /min Parrish Parikh pulse rate 74 /min Juni pacheco weight [...] Gruenenfelder respiratory rate E&M 20 /min Ana Luisa G minervaenenfelder pulse rate 72 /min Ana [...] height E&M 66.5 [in_i] Ana Luisa Gruenenfe [facility] Body Mass Index (Ratio) 47.85 kg/m2 Mary Grace Snyder MD blood pressure, cuff size large Ke rri Gruenenfelder blood pressure, diastolic 80 mm[Hg] Ke rri Gruenenfelder blood pressure, systolic 120 mm[Hg] Ker ri Gruenefranciscoer oxygen saturation, oximetry 95 % Ana Luisa Gruenenfpariser respiratory rate E&M 24 /min Ana Luisa G minervaenenfpariser pulse rate 81 /min Ana Luisa Gruenenfe [facility] weight E&M 301 [lb_av] Ana Luisa Gruenenfe [facility] height E&M 66.5 [in_i] Ana Luisa Janeyneisabele [facility] Body Mass Index (Ratio) 47.56 kg/m2 Mary [...] Snyder MD blood pressure, cuff size regular Ak anuj Lockett blood pressure, diastolic 73 mm[Hg] Ak anuj Lock[place] blood pressure, systolic 148 mm[Hg] [...] Wu lucia blood pressure, diastolic 62 mm[Hg] Ak anuj Lockett blood pressure, systolic 124 mm[Hg] Ana Maria maria Lockett pulse rate 70 /min Jovana Lockett oxygen saturation, oximetry 95 % Jovana Lockett respiratory rate E&M 15 /min Jovana Lockett Body Mass Index (Ratio) 44.03 kg/m2 Deena [facility] weight E&M 277 [lb_av] Jovana Lockett blood pressure, diastolic 79 mm[Hg] Ak anuj Bautista blood pressure, systolic 143 mm[Hg] [...] Laura respiratory rate E&M 20 /min Digna Catalan lucie weight E&M 305.2 [lb_av] Digna Laura height E&M 66.5 [in_i] Digna Sancehz blood pressure, diastolic 78 mm[Hg] Be jennifer [...] 0-149 High cholesterol, serum 163 mg/dL [employer] [phone]/03/ 18 calcium, serum 9.2 mg/dL [employer] 8.6-10.2 carbon dioxide, venous blood 26 mmol/L [employer] 20-29 chloride, serum 103 mmol/L [employer] 96-106 potassium, serum 4.3 mmol/L [employer] 3.5-5.2 sodium, serum 142 mmol/L [employer] [phone]/03/ 18 urea nitrogen/creatinine ratio, serum 12 [employer] [...] Not Estab. platelet count 171 X10E3/UL [employer] [phone]/03/ 18 red blood cell distribution width 13.7 [...] [employer] 3.4-10.8 platelet count 182 X10E3/UL [employer] [phone]/11/ 10 red blood cell distribution width 14.8 [...] 0-149 High cholesterol, serum 146 mg/dL [employer] [phone]/06/ 08 calcium, serum 9.1 mg/dL [employer] 8.6-10.2 carbon dioxide, venous blood 25 mmol/L [employer] 18-29 chloride, serum 103 mmol/L [employer] 96-106 potassium, serum 3.8 mmol/L [employer] 3.5-5.2 sodium, serum 143 mmol/L [employer] [phone]/06/ 08 urea nitrogen/creatinine ratio, serum 11 [employer]Log[employer] [...] percentage of total cells, blood 0.0 % [facility] nucleated red blood cells as percent of blood leukocytes 0.0 % [facility] - red blood cell (erythrocyte) count, per [...] USE Medication Status Instructions Dates Provider Indications [facility] lisinopril 20 mg tablet active Take 1 [...] by mouth once a day - Isidra [facility] ergocalciferol (vitamin D2) 1,250 mcg (50,000 unit) [...] tablet by mouth once a day - [place] Rushi verapamil 120 mg tablet extended release completed Take 1 tablet by mouth once a day - [place] Rushi doxazosin 4 mg tablet completed TAKE [...] day - Ana Luisa Zavala VITAMIN D3 19883 UNIT ORAL TABLET completed Take 1 tablet [...] history of marijuana use no Olga Ventimiglia [facility] drug use no Olga Ventimig eladia [facility] alcohol use, type beer Olga Keshav timiglia [facility] alcohol use yes Olga Ventimig eladia [facility] passive cigarette sm wallace exposure no Olga Ventimiglia [facility] smoking status Never smoker Olga Ventim iglia [facility] drug use no Jean Pierre Snyder MD [...] Ana Luisa Reyes alcohol use, type beer [facility] alcohol use yes Ana Luisa Reyes [...] passive cigarette sm [place] exposure no Kathrine [place] smoking status Never smoker Kathrine [place] drug use no Jean Pierre Snyder MD [...] Pierrezehra Snyder MD alcohol use, type beer [facility] Sudhakary ingrid MEJIA alcohol use yes Jean Pierrezehra Snyder MD passive cigarette sm wallace exposure no [facility] smoking status Never smoker [facility] drug use no Jean Pierrezehra Snyder MD [...] use no Juni pacheco passive cigarette sm [place]ace exposure no Juni Parikh smoking status Never smoker Juni Mondragon social history revie wed E&M reviewed - no changes required Jean Pierre Snyder MD social history E&M Job 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 Smoking History: Karoline grayosn has never smoked. Jean Pierre Snyder MD [...] cigarette sm wallace exposure no Ana Luisa Zavaal smoking status Never smoker Ana Luisa ulloa [...] Management Plan continue current therapy Olga Shubhamalejandro CIRCUS RIDER HRA, CV Assess/Plan, Angina (inactive) Management Plan [...] Payer name Policy type / Coverage type [place] [employer] libertarian ID AARP MEDICARE ADVANTAGE ([facility] COMPLETE PPO) Other [id number] ADVANCE DIRECTIVES Name Date DISCUSSED - NO DECISION MADE TREATMENT PLAN Date Name Performer [id number],C,d onig well. fairly normal gradients for prostetic valve Jean Pierre Snyder MD [id number],C,T he patient is using CPAP on a regular basis. The patient has been benefiting from therapy and should continue use. Jean Pierre Snyder MD [id number],S,N ormally doesn't have high BP B P [...] mouth every day Jean Pierre Snyder MD [id number],C,W ell controlled with compression. Jean Pierre Snyder MD [id number],S,P ossibility of increased right-sided pressures with exercise Jean Pierre Snyder MD [id number],S, B P today: 166/64 P rior BP: [...] mouth every day Jean Pierre Snyder MD [id number],S,S table. Continue medical therapy. Jean Pierre Snyder MD [id number],S, Jean Pierre Snyder MD [id number],C,Continue medi polo therapy Jean Pierre Snyder MD [id number],S, Jean Pierre Snyder MD [id number],C,D oing well after the TAVR. Repeat his echo Jean Pierre Snyder MD [id number],C,W ears compression stockings and uses power chair. No complaint of leg numbess today, and swelling reduced from socks Jean Pierre Snyder MD [id number],C,W ell controlled on mediaction, will order Holter Monitor B P today: 123/62 P rior BP: 151/74 (12/24/2020) Prior 10 Yr Risk Heart Disease: Not enough information (02/23/2010) Labs Reviewed: C reat: 1.11 (07/13/2017) C hol: 146 (07/13/2017) HDL: 32 (07/13/2017) Jean Pierre Snyder MD [id number],C,HR 82 today U ana maria Snyder MD [id number],B,S ome SOB, but still improved O rders: 9 9214 MOD 30-39min (CPT-79323) H olter Monitor 48 hr (CPT-73677) Jean Pierre Snyder MD [id number],B,N o Compliant today O rders: 9 9214 MOD 30-39min (CPT-17828) H olter Monitor 48 hr (CPT-94754) Jean Pierre Snyder MD [id number],S,SOB on exerti on Jean Pierre Snyder MD [id number],S, Jean Pierre Snyder MD [id number],S, H is updated medication list for this [...] HDL: 32 (07/13/2017) Jean Pierre Snyder MD [id number],S, H is updated medication list for this [...] 1 tablet by mouth every day [facility] Cardiology:last echo showed normal appearing bioprosthetic valve. [facility] Cardiology:compensat ed santo kam present medication regimen [...] Take 1 tablet by mouth every day [facility] Cardiology:persisten t SOB etiology remains unclear H [...] Take 1 tablet by mouth every day [facility] Cardiology:He has CP AP and has had >15 years g iven continued fatigue and SOB would recommend f/u sleep study [facility] Cardiology:weight loss encourage d Olga Silver [facility] Cardiology Jean Pierre Snyder MD Cardiology:Will gera [...] improved O rders: 9 9214 MOD 30-39min (CPT-33560) H olter Monitor 48 hr (CPT-89586) Jean Pierre Snyder MD Cardiology:No Compli ant today O rders: 9 9214 MOD 30-39min (CPT-97802) H olter Monitor 48 hr (CPT-96169) Jean Pierre Snyder MD Cardiology:SOB on exertion [...] Pierre Snyder MD Cardiology:Patient p resented to [facility] ER 04/15/2020 with chest discomfort. Workup was [...] Follow up :Will check AUGUST. Jean Pierre Snyder MD Cardiology Follow up :He has developed [...] daily Verapamil Hcl Er 120 Mg Oral Ur61k-tqu (Verapamil hcl) ..... One tab daily Aspirin Ec 325 Mg Oral Tbec (Aspirin) ..... Take one pill a day Jean Pierre Snyder MD Cardiology: H is updated medication list for this problem includes: Carvedilol 25 Mg Tabs (Carvedilol) ..... One tab twice daily Lasix 40 Mg Tabs (Furosemide) ..... 1 tab twice daily Verapamil Hcl Er 120 Mg Oral Ud85d-zac (Verapamil hcl) ..... One tab daily Aspirin [...] daily Verapamil Hcl Er 120 Mg Oral Zn90g-fbc (Verapamil hcl) ..... One tab daily Aspirin [...] Jean Pierre Snyder MD Cardiology:Compliant with C-pap Jean Pierre Snyder MD Cardiology Jean Pierre [...] tab daily Verapamil Hcl Er 240 Mg Gw72r-wbl (Verapamil hcl) ..... 1 capsule daily Aspirin 81 Mg Tabs (Aspirin) ..... One tab. daily Jean Pierre Snyder MD test results : H is updated medication list for this problem includes: Adult Aspirin Ec Low Strength 81 Mg Tbec (Aspirin) ..... 1 tab daily Verapamil Hcl Er 240 Mg [id number]-[id number] (Verapamil hcl) ..... 1 capsule daily Aspirin [...] tab daily Verapamil Hcl Er 240 Mg Bb88i-fyp (Verapamil hcl) ..... 1 capsule daily Aspirin [...] tab daily Verapamil Hcl Er 240 Mg Ey52l-fnd (Verapamil hcl) ..... 1 capsule daily Aspirin [...] tab daily Verapamil Hcl Er 240 Mg Op53r-lea (Verapamil hcl) ..... 1 capsule daily BP [...] tab daily Verapamil Hcl Er 240 Mg Aa52t-mrq (Verapamil hcl) ..... 1 capsule daily BP [...] STR - Adenosine Complete Echo DLCO - 74598 FRC - 88684 FVC - 60473 PROBNP, N TERMINAL BASIC METABOLIC PANE L [...] completed FVC / MVV with bronchodilator - 51696 Jean iPerre Snyder MD completed FRC - 49229 Jean Pierre Snyder MD complete d SpO2 w/o 6min walk/titration Jean Pierre Snyder MD completed DLCO - 19778 Jean Pierre Snyder MD complet ed EKG Jean Pierre Snyder MD completed Regadenoson, 4 units Jean Pierre Snyder MD completed Cardiolite, 2 units Jean Pierre Snyder MD completed SPECT Images Dez Penaloza MD complet ed Stress EKG Dez Penaloza MD completed EKG Jean Pierre Snyder MD completed FVC / MVV - 00939 Bernard Gutierrez MD c ompleted FRC - 32708 Bernard Gutierrez MD complet ed SpO2 w/o 6min walk/titration Bernard Gutierrez MD completed DLCO - 64544 Bernard Gutierrez MD comple adore SNOMED-CT: 75400501 Physical Exam, Performed: Pulse Exam of Foot Jean Pierre Snyder MD completed SNOMED-CT: 135993327866356 Current Medications Documented Jean Pierre Snyder MD completed EKG Conrado Beckford MD complet ed SNOMED-CT: 629659874708338 Current Medications Documented Conrado Beckford MD completed SNOMED-CT: 15614402 Physical Exam, Performed: Pulse Exam of Foot Jean Pierre Snyder MD completed SNOMED-CT: 463516018681203 Current Medications Documented Jean Pierre Snyder MD completed SNOMED-CT: 64963114 Physical Exam, Performed: Pulse Exam of Foot Jean Pierre Snyder MD completed SNOMED-CT: 588373469545663 Current Medications Documented Jean Pierre Snyder MD completed SNOMED-CT: 96571795 Physical Exam, Performed: Pulse Exam of Foot Jean Pierre Snyder MD completed EKG Jean Pierre Snyedr MD completed SNOMED-CT: 977967310284246 Current Medications Documented Jean Pierre Snyder MD completed SNOMED-CT: 10452712 Physical Exam, Performed: Pulse Exam of Foot Jean Pierre Snyder MD completed SNOMED-CT: 342918879379423 Current Medications Documented Jean Pierre Snyder MD completed SNOMED-CT: 43741175 Physical Exam, Performed: Pulse Exam of Foot Jean Pierre Snyder MD completed SNOMED-CT: 411758052189877 Current Medications Documented Jean Pierre Snyder MD completed SNOMED-CT: 504359915 Smoking Cessation Counseling Jean Pierre Snyder MD completed SNOMED-CT: 03969507 Physical Exam, Performed: Pulse Exam of Foot Jean Pierre Snyder MD completed SNOMED-CT: 787662773005453 Current Medications Documented Jean Pierre Snyder MD completed EKG Jean Pierre Snyder MD completed EKG Jean Pierre Snyder MD completed
--- OUTSIDE RECORDS SUMMARY | 2024-07-02 07:56 | XMS_ITS | Continuity of Care Document ---
Author Organization [facility] Address [address] [place] [address] Phone Care Team Providers Care Script Supervisor Name Role Phone Hany Vasquez Unavailable Unavailable [...] Date Provider Providers Copied on Encounter [facility], [address] [place] [address] [address], [place], [place], [id number], [place] tel:[phone] [facility] [place] No Information [phone] [facility] [place] , [address], [place], [place], [facility], [place]. tel:[phone] [facility], [address], [place], [place], [id number], [place] tel:[phone] [facility] No Information 2-[address] [facility] [place] , [address], [place], [address], [place]. tel:[phone] [facility], [address], [place], [place], [id number], [place] tel:[phone] [facility] [place] No Information 200 8 Christina Leach. [facility] [address], [place], [place], [facility], . tel:[phone] Referring Provider: [address], [place], [place], [facility]. tel:[phone] [facility], [address] [place] [address] [address], [place], [place], [id number], tel:[phone] [facility] [place] No Information [phone] 8 Christina Leach. [address] [place] [address] [address], [place], [place], [facility], . tel:[phone] Office/outpat ient Visit, [facility], [address] [place] [address] [address], [place], [place], [id number], tel:[phone] [facility] No Information [phone] 8 Christina Leach. [facility] [address], [place], [place], [facility], . tel:[phone] [facility], [address] [place] [address] [address], [place], [place], [address], tel:[phone] [facility] [place] No Information 9[address] 7 Christina Leach. [facility] [address], [place], [place], [facility], . tel:[phone] Referring Provider: Hany Valero [facility] [address], [place], [place], [facility]. tel:[phone] Family History Family Member Type Diagnosis Age [...]
--- OUTSIDE RECORDS SUMMARY | 2024-07-02 07:56 | XMS_ITS | Clinical Summary ---
Author Organization [facility] Address [address] [place] [address] Care Team Providers Care Associate Professor Of Education Name Role Phone Lance Green MD Primary Care Provider [phone] Jean Pierre Snyder MD Unavailable Allergies No [...] 10 mg by mouth daily Active vit C,W-Or-qawbr-agus tein-zeaxan [id number] hc-wnvg-hq-mg capsule Take 1 capsule by mouth daily [...] (08/28/2019): Added automatically from request for surgery [id number] Hypertension Coronary artery disease Hyperlipidemia BPH (benign [...] than three times a week 09/24/2019 [employer]ends [employer] Not on file 09/23 Do you belong to any clubs o r organizations such as sikhism groups, unions, fraternal or athletic groups, or [...] on file Legal Sex Male 6:44 PM RELEASE COORDINATOR Gender Identity Not on file Sexual Orientation Not on file Obstetrics History Last Filed Vital Signs Vital Sign Reading Time Taken Comments Blood Pressure 136/68 12/19/2022 2:32 PM RELEASE COORDINATOR Pulse 76 12/19/2022 2:32 PM RELEASE COORDINATOR Temperature 36.6 C (97.9 F) 12/19/2022 2:32 PM RELEASE COORDINATOR Respiratory Rate 18 12/19/2022 2:32 PM RELEASE COORDINATOR Oxygen Saturation 96% 12/19/2022 2:32 PM RELEASE COORDINATOR Inhaled Oxygen Concentration - - Weight 131.3 kg (289 lb 8 oz) 12/19/2022 2:32 PM RELEASE COORDINATOR Height 172.7 cm (5' 8) 11/26/2022 11:42 AM CDT Body Mass Index 44.02 11/26/2022 11:42 AM CDT Plan of Treatment Health Maintenance Due Date Last Done Comments Albumin Creatinine Ratio, Urine 1935 Depression Screening 1935 Dilated Eye Exam 1935 Foot Exam 1935 Hepatitis B Screening 1953 Zoster Vaccine (1 of 2) 1985 03/06/2019, 11/19 Well Visit 65+ 2000 Lipid Panel 01/21/2021 01/22/2020 Hemoglobin A1C 05/21/2023 11/19/2022 Fall Risk Assessment 11/21/2023 11/20/2022 eGFR 11/21/2023 11/20/2022, 11/05, 04/15/2020, Additional history exists Influenza Vaccine (Season Ended) 2024 11/12/2022, 11/12/2019, 11/19/2018, Additional history exists DTaP/Tdap/Td Vaccine (2 - Td or Tdap) 09/21/2028 09/21/2018 Pneumococcal vaccine 65+ Completed 09/19/2021, 05/06 Medical Devices Implanted Type Area Circular Knife Machine Cutter Device Identifier Shelf Expiration Date Model / Serial / Lot [employer] Evproplus-34us Valve 34mm Aortic Evolut Pro+ - [id number] - [id number] Implanted:Qty: 1 on 09/23/2019 by Jean Pierre Snyder MD at [facility] [employer] 02/25/2021 EVPROPLUS-3 4 / [id number] / Procedures Procedure Name Priority Date/Time Associated Diagnosis Comments EGFR Routine 11/20/2022 4:14 AM CDT HEMOGLOBIN A1C Routine 11/19/2022 8:32 PM CDT LIPID PANEL Timed 01/22/2020 12:33 AM RELEASE COORDINATOR from Last 3 Months or Most Recently [...] 4:14 AM CDT 11/20/2022 5:08 AM CDT Bassem Bolton NP LAB BLOOD ORDERABLES Bonnie anitha Result KEVIN ELIAS [id number] Department [place] [address] * (ABNORMAL) Hemoglobin A1c (11/19/2022 8:32 PM CDT) Hgb A1C 6.4(H) 4.0 - 5.6 % Estimated Average Glucose 137 mg/dL KEVIN ELIAS Comment: The ADA recommends reporting an estimated Average Glucose (eAG) with all Hemoglobin A1c results using the equation derived from a study of 507 normal and diabetic adults. Minority populations were underrepresented and children were not included. (Diabetes Care 31:5406-2159, 2008). The eAG is not equivalent to a fasting glucose. Blood 11/19/2022 8:32 PM CDT 11/19/2022 8:41 PM CDT Bassem Bolton NP LAB BLOOD ORDERABLES Bonnie welsh Result [facility] [id number] Department of Laboratories [place] [id number] * (ABNORMAL) Lipid panel (01/22/2020 12:33 AM RELEASE COORDINATOR) Cholesterol 138 30 - 199 mg/dL KEVIN [...] ELIAS Blood specimen (specimen) 01/22/2020 12:33 AM RELEASE COORDINATOR 01/22/2020 12:51 AM RELEASE COORDINATOR Narrative KEVIN ELIAS - 01/22/2020 1:58 AM RELEASE COORDINATOR This lipid panel was automatically ordered due to a critical delta for Troponin- T. The dietary status of the patient at the collection time should be correlated with the lipid results. us Valeriy Colbert MD LAB BLOOD ORDERABLE S Final Result KEVIN ELIAS [id number] [place] [address] from Last 3 Months or Most Recently Relevant to Health Maintenance Insurance [facility] MEDICARE ADVANTAGE [facility] Address: [address] [address] [place] [address] [employer] MEDICARE ADVANTAGE [facility] MEDICARE Address: [address] [address] [place] [address] [facility] MEDICARE ADVANTAGE [facility] MEDIC[facility] Address: [address] [address] [place] [address] Advance Directives For more information, please contact: [phone] Documents on File Type Date Recorded Patient Motion Picture Printer Expl anation ADVANCE DIRECTIVE 11/21/2022 5:32 PM LENNY SALVADOR WILL * Full Code (Latest Code Status [...] 11:32 AM 04/08/2019 6:47 PM Care Teams Associate Professor Of Education Relationship Specialty Start Date End Date Lance Green MD PCP - General Internal Medicine 08/14/19 Jean Pierre Snyder MD Consulting Physician Cardiovascular Disease 09/25/19
--- OUTSIDE RECORDS SUMMARY | 2024-07-02 07:56 | XMS_ITS | Data Portability ---
Author Organization [place] [facility] [employer], Main Office Address [address] [place] [address] Care Team Providers Care Despatching And Receiving Clerk Name Role Phone SHAWNEE GREEN Referring Provider [phone] Assessment Encounter Date Assessment Date Assessment LastModified by Organization Details LastModified Time 05/15/2022 05/15/2022 Will continue with current therapy all questions have been answered diagnosis in assessment and plan been discussed follow-up in 4 months [email or web address] Not available 06/04/2022 21:31:05 09/18/2022 09/18/2022 Blood work ordered diagnosis in assessment plan been discussed and all questions have been answered he will follow-up with me in 4 months [email or web address] Not available 10/08/2022 11:29:23 10/03/2022 10/03/2022 Patient [...] and his today records from hospital reviewed Not available 11/23/2022 21:27:22 01/15/2023 01/15/2023 Will continue current therapy diagnosis in the assessment and plan have been discussed all questions been answered he has been recommended to get up-to-date and stay up-to-date on flu COVID and RSV vaccinations follow-up 4 months [place] [address] Not available 02/05/2023 19:52:44 Plan of Treatment Reminders Order Date Submit Date Provider Last Modified By Organization Details Last Modified Time Details Appointments None recorded . Lab glycohem oglobin, total, blood 023 09/19/19 23 [facility] (Lab), [address] [place], [address], 3 16:08:02 lipid panel, serum 023 09/19/19 [facility] (Lab), [address] [place], [address], 3 14:04:22 CMP, serum or plasma 023 09/19/19 23 [facility] (Lab), [address] [place], [address], 3 14:04:27 CBC w/ auto diff 023 09/19/[address] (Lab), [address] [place], [address], 3 13:55:31 Referral None recorded . Procedures None recorded . Surgeries None recorded . Imaging XR, knee 023 10/04/19 [email or web address] [facility] [place], [address] [facility], [place], [address], 3 11:30:33 Medication Orders None recorded . Patient TargetsNo targets recorded. Patient InstructionsNo instructions recorded. Reason for Referral None Reported. Results Created Date Observation Date Name Description Value Unit Range Abnormal Flag Note LastModifiedBy Organization Detail LastModifiedTime 09/19/19 23 09/18/2022 CBC/C OMPLE TE BLD COUNT W/DIF F white blood cells 5.0 x10'3 /uL 4.2-10 .8 Not Available [facility] (Lab) [address] [place], [address], 09/18/2022 13:27:27 09/19/19 23 09/18/2022 CBC/C OMPLE TE BLD COUNT W/DIF F red blood cells 4.61 x10'6 /uL 4.10-5 .80 Not Available [facility] (Lab) [address] [place], [address], 09/18/2022 13:27:27 09/19/19 23 09/18/2022 CBC/C OMPLE TE BLD COUNT W/DIF F hemoglobin 13.2 g/dL 13.2-1 7.0 Not Available [facility] (Lab) [address] [place], [address], 09/18/2022 13:27:27 09/19/19 23 09/18/2022 CBC/C OMPLE TE BLD COUNT W/DIF F hematocrit 38.7 % 39.3-5 0.0 low Not Available [facility] (Lab) [address] [place], [address], 09/18/2022 13:27:27 09/19/19 23 09/18/2022 CBC/C OMPLE TE BLD COUNT W/DIF F mean red cell volume 83.9 fL 80.0-9 7.0 Not Available [facility] (Lab) [address] [place], [address], 09/18/2022 13:27:27 09/19/19 23 09/18/2022 CBC/C OMPLE TE BLD COUNT W/DIF F mean red cell hemoglobin 28.6 pg 27.0-3 3.0 Not Available [facility] (Lab) [address] [place], [address], 09/18/2022 13:27:27 09/19/19 23 09/18/2022 CBC/C OMPLE TE BLD COUNT W/DIF F mean RBC HGB concentratio n 34.1 g/dL 31.0-3 6.0 Not Available [facility] (Lab) [address] [place], [address], 09/18/2022 13:27:27 09/19/19 23 09/18/2022 CBC/C OMPLE TE BLD COUNT W/DIF F red cell distribution width 14.0 % 11.8-1 5.5 Not Available [facility] (Lab) [address] [place], [address], 09/18/2022 13:27:27 09/19/19 23 09/18/2022 CBC/C OMPLE TE BLD COUNT W/DIF F platelets 151 x10'3 /uL 150-40 0 Not Available [facility] (Lab) [address] [place], [address], 09/18/2022 13:27:27 09/19/19 23 09/18/2022 CBC/C OMPLE TE BLD COUNT W/DIF F mean platelet volume 10.9 fL 9.0-12 .4 Not Available [facility] (Lab) [address] [place], [address], 09/18/2022 13:27:27 09/19/19 23 09/18/2022 CBC/C OMPLE TE BLD COUNT W/DIF F neutrophils 56.3 % 39.0-7 2.0 Not Available [facility] (Lab) [address] [place], [address], 09/18/2022 13:27:27 09/19/19 23 09/18/2022 CBC/C OMPLE TE BLD COUNT W/DIF F lymphocytes 31.9 % 16.0-4 7.0 Not Available [facility] (Lab) [address] [place], [address], 09/18/2022 13:27:27 0809/18/2022 CBC/C OMPLE TE BLD COUNT W/DIF F monocytes 8.6 % 5.0-12 .0 Not Available [facility] (Lab) [address] [place], [address], 09/18/2022 13:27:27 09/19/19 23 09/18/2022 CBC/C OMPLE TE BLD COUNT W/DIF F eosinophils 2.2 % 1.0-7. 0 Not Available [facility] (Lab) [address] [place], [address], 09/18/2022 13:27:27 09/19/1909/18/2022 CBC/C OMPLE TE BLD COUNT W/DIF F basophils 0.4 % 0.0-2. 0 Not Available [facility] (Lab) [address] [place], [address], 09/18/2022 13:27:27 09/19/1909/18/2022 CBC/C OMPLE TE BLD COUNT W/DIF F immature granulocytes 0.6 % 0.00-0 .50 high Not Available [facility] (Lab) [address] [place], [address], 09/18/2022 13:27:27 09/19/19 23 09/18/2022 CBC/C OMPLE TE BLD COUNT W/DIF F neutrophils, absolute count 2.82 x10'3 /uL 1.5-8. 0 Not Available [facility] (Lab) [address] [place], [address], 09/18/2022 13:27:27 09/19/1909/18/2022 CBC/C OMPLE TE BLD COUNT W/DIF F lymphocytes, absolute count 1.60 x10'3 /uL 1.07-3 .43 Not Available [facility] (Lab) [address] [place], [address], 09/18/2022 13:27:27 08/14/20 23 09/18/2022 CBC/C OMPLE TE BLD COUNT W/DIF F monocytes, absolute count 0.43 x10'3 /uL 0.29-0 .99 Not Available [facility] (Lab) [address] [place], [address], 09/18/2022 13:27:27 09/19/19 23 09/18/2022 CBC/C OMPLE TE BLD COUNT W/DIF F eosinophils, absolute count 0.11 x10'3 /uL 0.02-0 .53 Not Available [facility] (Lab) [address] [place], [address], 09/18/2022 13:27:27 09/19/19 23 09/18/2022 CBC/C OMPLE TE BLD COUNT W/DIF F basophils, absolute count 0.02 x10'3 /uL 0.01-0 .08 Not Available [facility] (Lab) [address] [place], [address], 09/18/2022 13:27:27 09/19/19 23 09/18/2022 CBC/C OMPLE TE BLD COUNT W/DIF F immature granulocytes ,absolute 0.03 x10'3 /uL 0.00-0 .05 Not Available [facility] (Lab) [address] [place], [address], 09/18/2022 13:27:27 09/19/19 23 09/18/2022 CBC/C OMPLE TE BLD COUNT W/DIF F nucleated red blood cells 0.0 % -0 Not Available [facility] (Lab) [address] [place], [address], 09/18/2022 13:27:27 09/19/19 23 09/18/2022 CBC/C OMPLE TE BLD COUNT W/DIF F NRBC# 0.00 x10'3 /uL Not Available [facility] (Lab) [address] [place], [address], 09/18/2022 13:27:27 09/19/19 23 09/18/2022 LIPID PANEL cholesterol 158 mg/dL 140-19 9 NIH CYNTHIA NSUS RECOM MENDA TION FOR AJAY STERO L: ADULT CHILD LOW RISK: <200 <170 BORDE RLINE : <200- 239 ----- HIGH RISK: >240 >200 Not Available [facility] (Lab) [address] [place], [address], 09/18/2022 14:04:22 09/19/19 23 09/18/2022 LIPID PANEL triglyceride s 230 mg/dL 0-150 high NIH CYNTHIA NSUS REPOR T RECOM MENDA TION FOR TRIGL YCERI TALON: ADULT CHILD LOW RISK: <150 ----- BODER LINE: 150-1 99 ----- HIGH RISK: >200 ----- Not Available [facility] (Lab) [address] [place], [address], 09/18/2022 14:04:22 09/19/19 23 09/18/2022 LIPID PANEL HDL cholesterol 30 mg/dL 40- low Not Available [facility] (Lab) [address] [place], [address], 09/18/2022 14:04:22 09/19/19 23 09/18/2022 LIPID PANEL [...] WILL NOT BE REPOR CEDRIC. Not Available [facility] (Lab) [address] [place], [address], 09/18/2022 14:04:22 09/19/19 23 09/18/2022 COMPR EHENS ANNIKA METAB OLIC PANEL sodium 138 mmol/ L 137-14 5 Not Available [facility] (Lab) [address] [place], [address], 09/18/2022 14:04:27 09/19/19 23 09/18/2022 COMPR EHENS ANNIKA METAB OLIC PANEL potassium 3.7 mmol/ L 3.5-5. 1 Not Available [facility] (Lab) [address] [place], [address], 09/18/2022 14:04:27 09/19/19 23 09/18/2022 COMPR EHENS ANNIKA METAB OLIC PANEL chloride 104 mmol/ L 98-107 Not Available [facility] (Lab) [address] [place], [address], 09/18/2022 14:04:27 09/19/19 23 09/18/2022 COMPR EHENS ANNIKA METAB OLIC PANEL carbon dioxide 27 mmol/ L 22-30 Not Available [facility] (Lab) [address] [place], [address], 09/18/2022 14:04:27 09/19/19 23 09/18/2022 COMPR EHENS ANNIKA METAB OLIC PANEL anion gap 10.7 mmol/ L 14-22 low Not Available [facility] (Lab) [address] [place], [address], 09/18/2022 14:04:27 09/19/19 23 09/18/2022 COMPR EHENS ANNIKA METAB OLIC PANEL glucose 131 mg/dL 70-99 high Not Available [facility] (Lab) [address] [place], [address], 09/18/2022 14:04:27 09/19/19 23 09/18/2022 COMPR EHENS ANNIKA METAB OLIC PANEL BUN 10 mg/dL 8-19 Not Available [facility] (Lab) [address] [place], [address], 09/18/2022 14:04:27 09/19/19 23 09/18/2022 COMPR EHENS ANNIKA METAB OLIC PANEL creatinine 0.89 mg/dL 0.66-1 .25 Not Available [facility] (Lab) [address] [place], [address], 09/18/2022 14:04:27 09/19/19 23 09/18/2022 COMPR EHENS ANNIKA METAB OLIC PANEL GFR >60 Refer ence Range : [place] ge GFR Healt hy Adult : >60 [...] s/kdo qi/gf r_cal culat or Not Available [facility] (Lab) [address] [place], [address], 09/18/2022 14:04:27 09/19/19 23 09/18/2022 COMPR EHENS ANNIKA METAB OLIC PANEL alkaline phosphatase 49 U/L 38-126 Not Available [facility] (Lab) [address] [place], [address], 09/18/2022 14:04:27 09/19/19 23 09/18/2022 COMPR EHENS ANNIKA METAB OLIC PANEL alanine aminotransfe rase 37 U/L 0-50 Not Available [facility] (Lab) [address] [place], [address], 09/18/2022 14:04:27 09/19/19 23 09/18/2022 COMPR EHENS ANNIKA METAB OLIC PANEL aspartate aminotransfe rase 35 U/L 15-46 Not Available [facility] (Lab) [address] [place], [address], 09/18/2022 14:04:27 09/19/19 23 09/18/2022 COMPR EHENS ANNIKA METAB OLIC PANEL bilirubin, total 0.60 mg/dL 0.20-1 .30 Not Available [facility] (Lab) [address] [place], [address], 09/18/2022 14:04:27 09/19/19 23 09/18/2022 COMPR EHENS ANNIKA METAB OLIC PANEL calcium 8.5 mg/dL 8.4-10 .2 Not Available [facility] (Lab) [address] [place], [address], 09/18/2022 14:04:27 09/19/19 23 09/18/2022 COMPR EHENS ANNIKA METAB OLIC PANEL total protein 6.8 g/dL 6.3-8. 2 Not Available [facility] (Lab) [address] [place], [address], 09/18/2022 14:04:27 09/19/19 23 09/18/2022 COMPR EHENS ANNIKA METAB OLIC PANEL albumin 4.1 g/dL 3.0-4. 4 Not Available [facility] (Lab) [address] [place], [address], 09/18/2022 14:04:27 09/19/19 23 09/18/2022 COMPR EHENS ANNIKA METAB OLIC PANEL globulin 2.7 g/dL 2.6-4. 2 Not Available [facility] (Lab) [address] [place], [address], 09/18/2022 14:04:27 09/19/19 23 09/18/2022 COMPR EHENS ANNIKA METAB OLIC PANEL A/G ratio 1.5 ratio 1.0-2. 0 Not Available [facility] (Lab) [address] [place], [address], 09/18/2022 14:04:27 09/19/19 23 09/18/2022 HEMOG LOBIN A1C HA1C 6.5 % 4.0-6. 0 high Diabe berhane Scree cass Crite oksana: <5.7% Consi stent with absen ce of diabe berhane 5.7-6 .4% Consi stent with incre ased risk for diabe berhane (pred iabet es) >OR=6 .5% Consi stent with diabe berhane REFER ENCE: Diabe berhane Care 2016, 39(Ceja ppl.1 ):s13 -s22 Not Available [facility] (Lab) [address] [place], [address], 09/18/2022 16:08:02 09/02/19 23 09/01/2022 US, echoc ardio gram No observ ation record ed. [email or web address] [facility] [address], [place], [address], 09/19/2022 16:35:35 10/04/19 23 XR, knee No observ ation record ed. [email or web address] [facility] [address], [place], [address], 10/03/2022 11:12:22 Result Notes None recorded. Problems Name Problem SNOMED Code Status Onset Date Resolution Date Notes Provider Name and Address Organization Details Recorded Time Pain of bilatera l knee joints 44508416901 4104 Active 2022 WILLIE Kaur, [facility] [employer] 3 10:59:12 Heart failure with normal ejection fraction 699333332 Active 2022 Shawnee Green MD [address] [place] [address], [facility] [address], [place], [address] , [facility] [employer] 3 21:26:49 Edema of lower extremit y 631485074 Active Not Available [facility] 3 08:36:15 History of right total knee replacem ent 26435238678 Active 2020 Not Available [facility] 3 08:36:15 History of left total knee replacem ent 85893795343 Active 2020 Not Available [facility] 3 08:36:15 Chronic obstruct annika pulmonar y disease 17036574 Active Not Available [facility] 3 08:36:15 Standard chest X-ray abnormal 453456465 Active 2021 Not Available [facility] 3 08:36:15 Angiodys plasia of colon 423736338 Active 2019 colonosc opy 2018 Not Available [facility] 3 08:36:15 Localize d, 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 267471225 Active Not Available [facility] 3 08:36:15 Morbid obesity 886927069 Active 2020 Not Available [facility] 3 08:36:15 Osteoart hritis of knee 854061898 Active Not Available [facility] 3 08:36:15 Dyspnea 553380880 Active Not Available [facility] 3 08:36:16 Low back pain 145462407 Active Not Available [facility] 3 08:36:16 Knee pain Active Not Available [facility] 3 08:36:16 Type 2 diabetes mellitus without complica tion 971599098 Active 2021 Not Available [facility] 3 08:36:16 Trochant naomi bursitis of left hip 73300079962 9103 Active 2022 Not Available [facility] 3 08:36:16 Osteoart hritis 281525163 Active Not Available [facility] 3 08:36:16 Obesity 396890070 Active Not Available [facility] 3 08:36:16 Coronary atherosc lerosis 529167451 Active Not Available [facility] 3 08:36:16 Cough 12350425 Active 2021 Not Available [facility] 3 08:36:16 Coronary arterios clerosis 13630927 Active 2020 Not Available [facility] 3 08:36:16 Hyperlip idemia 30973926 Active Not Available [facility] 3 08:36:16 Occult blood detected in feces 15327938 Active Not Available [facility] 3 08:36:16 Essentia l hyperten janeth 56171429 Active Not Available [facility] 3 08:36:16 Supraven tricular tachycar ju 8824241 Active history of Not Available [facility] 3 08:36:16 Sleep apnea 92429801 Completed Not Available [facility] 3 04:50:02 Hypersom angus 05764769 Active Not Available [facility] 3 08:36:16 Obstruct annika sleep apnea syndrome 91875804 Active Not Available [facility] 3 08:36:16 Aortic valve disorder 8526390 Active Not Available [facility] 3 08:36:16 Skin lesion 63505081 Active Not Available [facility] 3 08:36:16 Notes:eye exam November 2016 Problem Notes None recorded. Procedures Surgical History Date Name Laterality Status Provider Name and Address Organization Details Recorded Time 04/21/19 18 Colonoscopy completed Not Available [facility] 04/05/2022 04:42:13 01/21/20 15 Total knee arthroplasty completed Not Available [facility] 04/05/2022 04:42:13 Total knee arthroplasty completed Not Available [facility] 04/05/2022 04:42:13 Cataract Surgery completed Not Available [facility] 04/05/2022 04:42:13 Colonoscopy completed Not Available [facility] 04/05/2022 04:42:13 Cardiac Stent Placement completed Not Available [facility] 04/05/2022 04:42:13 Cardiovascular Surgery completed Not Available [facility] 04/05/2022 04:42:13 Imaging Results None recorded. Procedure Notes None recorded. Medical Equipment None [...] administ ered by the provider 05/15 completed ND: [id number] 4- Not Available Not Available Not Available hydrocodo [...] mg by injectio n route. 05/15 completed [facility] [address] - Not Available Not Available Not Available Fluvirin 0023-3681 45 mcg (15 mcg x 3)/0.5 mL intramusc ular suspensio n active Not Available Not Available Not Available PreserVis ion AREDS-2 06/02 completed pt changed to healthy eyes Not Available Not Available Not Available Fluzone 8288-9944 45 mcg (15 mcg x 3)/0.5 mL intramusc ular suspensio n active Not Available Not Available Not Available Fluzone Quad 3694-6078 (PF) 60 mcg (15 mcg x 4)/0.5 mL IM syringe active Not Available Not Available Not Available Fluzone High-Dose 4660-2637 (PF) 180 mcg/0.5 mL intramusc ular syringe 12/27 completed Not Available Not Available Not Available Fluzone High-Dose 5617-1896 (PF) 180 mcg/0.5 mL intramusc ular syringe 03/02 completed Not Available Not Available Not Available Shingrix (PF) 50 mcg/0.5 mL intramusc ular suspensio n, kit 08/03 completed Not Available Not Available Not Available Fluzone High-Dose 7291-3931 (PF) 180 mcg/0.5 mL intramusc ular syringe 01/11 completed Not Available Not Available Not Available Fluzone High-Dose (PF) 180 mcg/0.5 mL intramusc ular syringe 01/13 completed Not Available Not Available Not Available Fluad 2019- 65yr up(PF)45 mcg(15 mcgx3)/0. 5 mL intramusc [...] Updated DateTime 3 172.72 cm 45.5 kg/m2 916093. 12 g 98 [degF] 93 /min 124 mm[Hg] 84 mm[Hg] Katherin welsh RN [place] [facility] [place] [employer] [facility] 3 11:15:52 Date Recorded Body height Body mass index (BMI) Body weight Body temperature Heart rate Systolic blood pressure Diastolic blood pressure Provider Name and Address Organization Details Last Updated DateTime 3 172.72 cm 45.6 kg/m2 237047. 71 g 97.6 [degF] 96 /min 134 mm[Hg] 78 mm[Hg] Katherin welsh RN [facility] [employer] [facility] 3 11:10:47 Date Recorded Body height Body mass index (BMI) Body weight Provider Name and Address Organization Details Last Updated DateTime 10/03/2022 170.18 cm 46.2 kg/m2 959357.75 g Brenda WILLIE Payne [facility] [employer] [facility] 10/03/2022 10:58:20 Date Recorded Body height Body mass index (BMI) Body weight Body temperature Heart rate Systolic blood pressure Diastolic blood pressure Provider Name and Address Organization Details Last Updated DateTime 3 170.18 cm 46.7 kg/m2 895065. 53 g 97.2 [degF] 68 /min 134 mm[Hg] 66 mm[Hg] GERBER Rosa [facility] [employer] [facility] 3 14:31:18 Date Recorded Body height Body mass index (BMI) Body weight Body temperature Heart rate Systolic blood pressure Diastolic blood pressure Provider Name and Address Organization Details Last Updated DateTime 3 170.18 cm 45.9 kg/m2 275114. 56 g 97.8 [degF] 65 /min 126 mm[Hg] 72 mm[Hg] GERBER Rosa [facility] 3 11:19:06 Social History Question Answer Notes LastModified by Organization Details LastModified Time Tobacco Smoking Status Never Smoker Not Available [facility] 04/05/2022 04:41:40 Do You Have An Advance Directive? No [id number] Information not available 04/05/2022 Are You Blind Or Do You Have Difficulty Seeing? No MIGRATION.030 [id number] Information not available 04/05/2022 What Is Your Level Of Caffeine Consumption? None MIGRATION.030 [id number] Information not available 04/05/2022 How Much Tobacco Do You Chew? None [id number] Information not available 04/05/2022 In The 14 Days Before Symptom Onset, Have You Had Close Contact With A Laboratory-conf irmed COVID-19 While That Case Was Ill? No MIGRATION.0301 [id number] Information not available 04/05/2022 In The 14 Days Before Symptom Onset, Have You Had Close Contact With A Person Who Is Under Investigation For COVID-19 While That Person Was Ill? No MIGRATION.0301 [id number] Information not available 04/05/2022 Are You Deaf Or Do You Have Serious Difficulty Hearing? No MIGRATION.0301 [id number] Information not available 04/05/2022 What Type Of Diet Are You Following? REGULAR MIGRATION.0301 [id number] Information not available 04/05/2022 Which Illicit Or Recreational Drugs Have You Used? None MIGRATION.030 [id number] Information not available 04/05/2022 What Is The Highest Grade Or Level Of School You Have Completed Or The Highest Degree You Have Received? [id number] MIGRATION.030 [id number] Information not available 04/05/2022 Have There Been Any Changes To Your Family Or Social Situation? No MIGRATION.0301 [id number] Information not available 04/05/2022 What Is The Fluoride Status Of Your Home? Unknown MIGRATION.0301 [id number] Information not available 04/05/2022 Are There Any Guns Present In Your Home? Yes MIGRATION.0301 [id number] Information not available 04/05/2022 Do You Use Insect Repellent Routinely? No MIGRATION.0301 [id number] Information not available 04/05/2022 Where Do You Live? [place] MIGRATION.030 [id number] Information not available 04/05/2022 Do You Have A Medical Power Of Manager Hiv? Yes MIGRATION.0301 [id number] Information not available 04/05/2022 What Was The Date Of Your Most Recent Tobacco Screening? 01/15/2023 [email or web address] Information not available 01/15/2023 Have You Ever Been Counseled For Unhealthy Alcohol Use? No MIGRATION.0301 [id number] Information not available 04/05/2022 Do You Have Any Pets? No MIGRATION.0301 [id number] Information not available 04/05/2022 What Is Your Relationship Status? MIGRATION.0301 [id number] Information not available 04/05/2022 Do You Use Your Seat Belt Or Car Seat Routinely? Yes MIGRATION.0301 [id number] Information not available 04/05/2022 Do You Have Smoke And Carbon Monoxide Detectors In Your Home? Yes MIGRATION.0301 [id number] Information not available 04/05/2022 At What Age Did You Start Smoking Tobacco? 18 MIGRATION.0301 [id number] Information not available 04/05/2022 Are You Passively Exposed To Smoke? No MIGRATION.0301 [id number] Information not available 04/05/2022 Are There Any Smokers In Your House? No MIGRATION.0301 [id number] Information not available 04/05/2022 How Much Tobacco Do You Smoke? No MIGRATION.0301 [id number] Information not available 04/05/2022 What Types Of Sporting Activities Do You Participate In? None MIGRATION.0301 [id number] Information not available 04/05/2022 Do You Use Sunscreen Routinely? No MIGRATION.0301 [id number] Information not available 04/05/2022 Has Tobacco Cessation Counseling Been Provided? No MIGRATION.0301 [id number] Information not available 04/05/2022 How Many Years Have You Smoked Tobacco? 25 MIGRATION.0301 [id number] Information not available 04/05/2022 Have You Recently Traveled Abroad? No MIGRATION.0301 [id number] Information not available 04/05/2022 Do You Have Difficulty Walking Or Climbing Stairs? Yes Always Uses Assistive Devices MIGRATION.0301 [id number] Information not available 04/05/2022 Do You Have Any Dietary Restrictions? No [id number] Information not available 04/05/2022 Sex: Male Functional Status Question Answer Note LastModified by Organizat ion Details LastModified Time Do you use any illicit or recreational drugs? No [id number] Information not available 04/05/2022 What is your level of alcohol consumption? None [id number] Information not available 04/05/2022 Do you or have you ever used smokeless tobacco? Never used smokeless tobacco [id number].[id number] Information not available 04/05/2022 Do you have transportation difficulties? No [id number] Information not available 04/05/2022 Are you able to walk? YESLIMIT [id number] Information not available 04/05/2022 Do you have difficulty doing errands alone? No [id number] Information not available 04/05/2022 Are you able to care for yourself? Yes [id number] Information not available 04/05/2022 What is your occupation? retired [id number] Information not available 04/05/2022 Do you have difficulty dressing or bathing? No [id number] Information not available 04/05/2022 Do you or have you ever used e-cigarettes or vape? Never used electronic cigarettes [id number] Information not available 04/05/2022 What is your exercise level? Occasional [id number].[id number] Information not available 04/05/2022 Mental Status Question Answer Note LastModified by Organizat ion Details LastModified Time Do you feel stressed (tense, restless, nervous, or anxious, or unable to sleep at night)? [id number] 26 Information not available 04/05/2022 Do you have difficulty concentrating, remembering or making decisions? No [id number] 26 Information not available 04/05/2022 Family History Relationship Description Onset Age of this Age Resolved Age Notes LastModified by Organization Details LastModified Time Mother Old-age [id number] Not available 04/05/2022 04:42:19 Mother Diabetes mellitus [id number] Not available 04/05/2022 04:42:19 Sister Family history of malignant neoplasm [id number] [id number] Not available 04/05/2022 04:42:19 Unspecified Relation Heart disease [id number] Not available 04/05/2022 04:42:19 Unspecified Relation Hypertensive disorder [id number] [id number] Not available 04/05/2022 04:42:20 Medical History Condition Response NERVE DISEASE N BLINDNESS N RHEUMATIC FEVER N KIDNEY STONES N BLADDER PROBLEMS N MRSA N OTHER # 1 N POLIO N LUNG DISEASE/DISORDER N RADIATION / CHEMOTHERAPY N COPD N Other # 2 N BLOOD DISEASES N EAR OR HEARING PROBLEMS N MUMPS N BOWEL PROBLEMS N DEPRESSION (INCLUDING POST ) N STROKE/TIA N ULCERS N BENIGN PROSTATIC [...] N CHRONIC PAIN SYNDROME N HYPOTHYROIDISM N CONSTIPATION N CAROTID BLOCKAGE N BACK / NECK PROBLEMS N HAVE YOU BEEN HOSPITALIZED OR SEEN IN [facility] IN THE PAST YEAR ? N [...] high-dose, quadrivalent, PF 2 completed Not Available [facility] 09/19/2022 08:36:16 COVID-19, mRNA, LNP-S, PF, 10 mcg/0.2 mL dose, rolo-sucrose 2 completed Not Available [facility] 09/19/2022 08:36:16 COVID-19, mRNA, LNP-S, PF, 10 mcg/0.2 mL dose, rolo-sucrose 1 completed Not Available [facility] 09/19/2022 08:36:16 Influenza, split virus, trivalent, preservative 0 completed Not Available [facility] 09/19/2022 08:36:16 zoster, unspecified formulation 0 completed Not Available [facility] 09/19/2022 08:36:16 Influenza, split virus, quadrivalent, preservative 9 completed Not Available [facility] 09/19/2022 08:36:16 zoster, unspecified formulation 9 completed Not Available [facility] 09/19/2022 08:36:16 Tdap 9 completed Not Available [facility] 09/19/2022 08:36:16 Influenza, high-dose, trivalent, PF 8 completed Not Available [facility] 09/19/2022 08:36:16 Influenza, high-dose, trivalent, PF 6 completed Not Available [facility] 09/19/2022 08:36:16 Influenza, split virus, trivalent, PF 5 completed Not Available [facility] 09/19/2022 08:36:16 Influenza, split virus, trivalent, PF 3 completed Not Available [facility] 09/19/2022 08:36:16 COVID-19, mRNA, LNP-S, PF, 30 mcg/0.3 mL dose 1 completed Not Available [facility] 09/19/2022 08:36:16 COVID-19, mRNA, LNP-S, PF, 30 mcg/0.3 mL dose 1 completed Not Available [facility] 09/19/2022 08:36:16 pneumococcal polysaccharide PPV23 2 completed Not Available [facility] 09/19/2022 08:36:16 Pneumococcal conjugate PCV 13 6 completed Not Available [facility] 09/19/2022 08:36:16 Past Encounters Encounter ID Performer Location Encounter Start Date Encounter Closed Date Diagnosis/Indication Diagnosis SNOMED-CT Code Diagnosis ICD10 Code Diagnosis Note [id number] Shawnee Green MD [facility] [address] [place] , [address] [address] 06/02/2020 00:00:00 06/27/2020 15:06:20 [id number] Shawnee Green MD [facility] Med [facility] [address] [place] , [address] [address] 08/25/2020 00:00:00 08/28/2020 13:08:24 [id number] Nishant [facility] [address] [place] [address] 10/05/2020 00:00:00 10/05/2020 10:01:20 [id number] Shawnee Green MD [facility] Internal Med [facility] [address] [place] [address], [address] [address] 12/15/2020 00:00:00 12/15/2020 21:21:10 [id number] Shawnee Green MD S_[facility] Internal Med [facility] [address] [place] [address] 04/06/2021 00:00:00 04/24/2021 11:50:55 [id number] Shawnee Green MD S_[facility] Internal Med [facility] [address] [place] [address] 04/13/2021 00:00:00 05/07/2021 12:15:39 [id number] Shawnee Green MD S_[facility] Internal Med [facility] [address] [address] 07/06/2021 00:00:00 07/07/2021 08:04:01 [id number] Shawnee Green MD [facility]G Internal Med [facility] [address] [place] [address] 09/19/2021 00:00:00 09/20/2021 21:11:22 [id number] Shawnee Green MD S_G Internal Med [facility] [address] [place] [address] 01/16/2022 00:00:00 01/16/2022 12:46:16 [id number] Nishant Owusu MD [facility] [place] [address] [place] [address] 03/30/2022 00:00:00 03/30/2022 11:40:02 [id number] Shawnee Green MD S_[facility] Internal Med [facility] [address] [place] [address] 05/15/2022 10:47:12 05/15/2022 12:39:12 Type 2 diabetes mellitus without complication 487319766 E11.9 Osteoarthr itis of knee 010943442 M17.9 Morbid obesity 740285234 E66.01 Hyperlipidemia 79823836 E78.5 Essential hypertension 25229498 I10 Coronary atherosclerosis 095295301 I25.10 Aortic valve disorder 87 99012 I35.9 [id number] Shawnee Green MD [facility] Internal Med [facility] [address] [facility] [address] [address] 09/18/2022 10:55:57 09/18/2022 12:09:47 Essential hypertension 62393377 I10 Type 2 ju betes mellitus without complication 406029253 E11.9 Coronary arteriosclerosis 70487089 I25.10 Angiodyspl pablo of colon 523306512 K55.20 Hyperlipidemia 14333228 E78.5 [id number] Nisahnt Owusu MD S_[facility] [address] [place] [address] 10/03/2022 10:53:26 10/03/2022 11:30:32 History of right total knee replacement 3729240925 568898 Z96.651 History of left total knee replacement 0328378361 922315 Z96.652 Pain of bi lateral knee joints 4204261680 10629 M25.561 M25.848 [id number] Shawnee Green MD [facility] Internal [place] [address] [place] [address] 11/23/2022 14:18:23 11/23/2022 15:11:22 Heart failure with normal ejection fraction 188322078 I50.31 Coronary atherosclerosis 791517878 I25.10 Essential hypertension 09118392 I10 [id number] Shawnee Green MD [facility] Internal Med [facility] [address] [address] 01/15/2023 10:27:45 01/15/2023 12:19:56 Essential hypertension 08426868 I10 Heart fail ure with normal ejection fraction 319713748 I50.31 Hyperlipidemia 91787918 E78.5 Morbid obesity 714693213 E66.01 Type 2 ju betes mellitus without complication 862910983 E11.9 Coronary atherosclerosis 703951674 I25.10 Angiodyspl pablo of colon 634491424 K55.20 Health Concerns Section Related Observation LastModified by Organization Detai ls LastModified Time None Recorded Concern Status LastModified by Organization Details LastModified Time None Recorded Advance Directives Directive N: Payers Encounter Date Sequence Insurance Name Policy Number Policy Treviño Covered Member ID Treviño Member ID Guarantor Name 05/15/2022 1 [facility] - MEDICARE COMPLETE - CHOICE PLAN 2 (MEDICARE REPLACEMENT REGIONAL PPO) [id number] Edwin Hickey [id number] Edwin Hickey 09/18/2022 1 [facility] - MEDICARE COMPLETE - CHOICE PLAN 2 (MEDICARE REPLACEMENT REGIONAL PPO) [id number] Edwin Hickey [id number] Edwin Hickey 10/03/2022 1 [facility] - MEDICARE COMPLETE - CHOICE PLAN 2 (MEDICARE REPLACEMENT REGIONAL PPO) [id number] Edwin Hickey [id number] Edwin Hickey 11/23/2022 1 [facility] - MEDICARE COMPLETE - CHOICE PLAN 2 (MEDICARE REPLACEMENT REGIONAL PPO) [id number] Edwin Hickey [id number] Edwin Hickey 01/15/2023 1 [facility] - MEDICARE COMPLETE - CHOICE PLAN 2 (MEDICARE REPLACEMENT REGIONAL PPO) [id number] Edwin Hickey [id number] Edwin Hickey Notes Date Note Type Note Provider Name and Address Organization Details Recorded Time 05/16/19 23 text/htm l Diabetes no polyphagia no polydipsia does not take sugars regularlyOsteoarthritis of the knees uses scooterObesity realistically will not have significant weight loss voluntarilyHyperlipidemia does try to watch his intake of saturated fatHypertension no headache or dizzinessCAD no chest painAortic valve TAVR Shawnee Green MD [address], [place], [address], [facility] [employer] 06/04/2022 21:31:29 09/19/19 23 text/htm l Diabetes no polyphagia no polydipsia does not take sugars regularlyOsteoarthritis of the knees uses scooterObesity realistically will not have significant weight loss voluntarilyHyperlipidemia does try to watch his intake of saturated fatHypertension no headache or dizzinessCAD no chest painAortic valve TAVR Shawnee Green MD [address], [place], [address], [facility] [employer] [facility] 10/08/2022 11:29:42 10/04/19 23 text/htm l Patient returns status post bilateral total knees. He is 23 years out on the right 8 on the left. He is not having any issues walking well. He has more trouble with his breathing and his weight. Nishant Owusu MD [address], [facility] [address], [place], [address], [facility] [employer] [facility] [employer] [facility] 10/03/2022 11:12:43 11/24/19 23 text/htm l chest pain swelling legs ER [facility] spent the night diuresed chest x-ray fluid overload BNP allegedly normal no echo done feeling better discharged on home dose of Lasix Shawnee Green MD [address], [facility] [address], [place], [address], [facility] [employer] [facility] [employer] [facility] 11/23/2022 21:29:31 01/16/20 23 text/htm l Diabetes no polyphagia no polydipsia does not take sugars regularlyOsteoarthritis of the knees uses scooterObesity realistically will not have significant weight loss voluntarilyHyperlipidemia does try to watch his intake of saturated fatHypertension no headache or dizzinessCAD no chest painAortic valve TAVR Shawnee Green MD [address], [facility] [address], [place], [address], [facility] [employer] [facility] 02/05/2023 19:53:09
--- NOTE | 2024-07-22 13:47 | P.SLEEP_ITS ---
Sleep Study Date of Study: 07/02/24 Ordering Provider: Jean Pierre Snyder MD Interpreting Physician: Nandini Aguilar DO Sleep Study Type: Polysomnogram Height: 1.7 m Weight: 123.831 kg Body Mass Index: 42.7 Neck Circumference (inches): 20 Schaller: 5 Reason for Sleep Study Daytime hypersomnia Sleep History The patient is an 89-year-old male that had a sleep study ordered by his bank and savings securities trader for evaluation of sleep apnea. The patient denies awakening from sleep short of breath. He rarely awakens at night with heartburn, belching or cough. He denies snoring. He occasionally has trouble sleeping when he has a cold. He denies waking up gasping for air throughout the night. He occasionally has breathing problems at night observed by himself or others. He occasionally sweats excessively at night. He denies having heart palpitations or irregular heartbeats during the night. He occasionally falls asleep during the day but never while driving. He rarely experiences loss of muscle tone when extremely emotional. He denies having trouble at school or work due to sleepiness. He denies sleep paralysis and hypnagogic/ hypnopompic hallucinations. He denies feeling afraid of going to sleep. He denies having nightmares. He rarely remembers his dreams. He rarely has thoughts racing through his mind. He denies feeling sad or depressed. He rarely has anxiety. He rarely has muscular tension. He denies noticing parts of his body jerk. He denies kicking during the night. He denies having crawling and aching feelings in his legs and denies having leg pain during the night. He rarely grinds his t eeth during sleep but never awakens with morning jaw pain. He is rarely bothered by pain during the day and rarely awakened by pain during the night. He rarely wakes up feeling stiff in the morning. He rarely wakes up with sore or achy muscles. He rarely wakes up with pain in the neck, spine and other joints. He goes to bed at midnight on both weekdays and weekends. It takes him 10 minutes to fall asleep. He does not typically wake up throughout the night. He wakes up at 7:00 a.m. on weekdays and 8:00 a.m. on the weekends. He typically gets 8 hours of sleep throughout the night. He will stay in bed for less than 10 minutes after waking up in the morning. He currently lives with his . He denies consuming any caffeinated beverages within 2 hours of bedtime. He denies engaging in physical exercise before bedtime. He denies reading before falling asleep. He will watch television before falling asleep. He will take naps in afternoon or the evening and they are refreshing. He denies consuming any caffeinated beverages throughout the day. He denies tobacco, alcohol and recreational drug use. 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 He has 2 step children and 2 biologic children. He used to smoke 3 cigars a day or a half of pack of slim cigars a day but quit smoking cigars at least 30 years ago. He denies any history of alcohol use or illicit substance use. Code status: Full code Healthcare power of patent prosecution attorney: Michela Hickey () Smoking status: Former smoker Tobacco type: cigars Alcohol intake: current Substance use: never Do You Feel Safe in your Home?: Yes Lack of Transportation: No Lack of Food: Never True Current Housing: I Have Housing Concerned About Future Housing: No Difficulty Paying Gas/Electric Bills: No Difficulty Paying for Meds: No Currently Unemployed: Decline to Answer Education: High School Diploma/GED Difficulty w/ Childcare or Family Care: No Spiritual care concerns: No Medications Home Medications ?Medication ?Instructions ?Recorded ?Confirmed ?Type aspirin 81 mg tablet,delayed 81 mg PO DAILY 05/01/24 06/23/24 History release cholecalciferol (vitamin D3) 25 25 mcg PO DAILY 05/01/24 06/23/24 History mcg (1,000 unit) capsule coenzyme Q10 10 mg capsule 10 mg PO DAILY 05/01/24 06/23/24 History doxazosin 4 mg tablet (Cardura) 4 mg PO DAILY 05/01/24 06/23/24 History finasteride 5 mg tablet 5 mg PO DAILY 05/01/24 06/23/24 History furosemide 40 mg tablet 40 mg PO QAM 05/01/24 06/23/24 History loratadine 10 mg tablet (Loradamed) 10 mg PO DAILY 05/01/24 06/23/24 History mecobalamin (vitamin B12) 1,000 1,000 mcg PO DAILY 05/01/24 06/23/24 History mcg chewable tablet mv-mn-folic 200 mcg-vit K 15 1 cap PO DAILY 05/01/24 06/23/24 History mcg-lutein 5 mg-zeaxanthin 1 mg capsule (PreserVision AREDS 2 Plus Multivit) verapamil 120 mg tablet,extended 120 mg PO DAILY 05/01/24 06/23/24 History release atorvastatin 10 mg tablet 10 mg PO EVERY OTHER DAY 06/23/24 06/23/24 History carvedilol 12.5 mg tablet (Coreg) 12.5 mg PO Q12HR 30 days #60 tabs 06/25/24 Rx Sleep Procedure A full night polysomnogram using the [employer] multi-channel system recorded the standard physiologic parameters including EEG, EOG, submentalis EMG, anterior tibialis EMG, EKG, body position, nasal and oral airflow using nasal pressure sensor and thermistor.? Respiratory parameters of chest and abdominal movements were recorded with Respiratory Inductance Plethysmography belts. Oxygen saturation was recorded by pulse oximetry. Video monitoring was also performed. Sleep stages, periodic limb movements, and EEG arousals were scored in 30 second epochs according to the criteria of the AASM Scoring Manual. The Apnea-Hypopnea Index was calculated using CMS guidelines for definition of hypopnea with 4% O2 desaturations while scoring respiratory events. Sleep Architecture The total recording time was 406.9 minutes.? The total sleep time was 149.5 minutes. Sleep latency was 19.5 minutes. REM sleep was not achieved during this portion of the study. Sleep efficiency was 36.7%. The patient had 90 awakenings for an awakening index of 36.1. Wake after sleep onset time was 237.5 minutes. The patient spent 117.0 minutes, 78.3% of total sleep time in Stage N1. The patient spent 32.5 minutes, 21.7% in Stage N2. The patient spent 0.0 minutes, 0.0% in Stage N3. The patient spent 0.0 minutes, 0.0% in Stage REM sleep. Respiratory Analysis The patient had 112 hypopneas, 46 obstructive apneas, 2 mixed apneas, and 4 central apneas for an overall Apnea Hypopnea Index of 65.0. The REM Apnea Hypopnea Index was 0. The NREM Apnea Hypopnea Index was 65.0. The patient had a Central Apnea Hypopnea Index of 1.6. There was no evidence of Myron-Melvin Respirations. Arousals There were 121 total arousals for an arousal index of 48.6. There were 72 spontaneous arousals for an index of 28.9. There were 49 arousals due to respiratory events for an index of 19.7. There were 0 arousals due to periodic limb movements for an index of 0.? There were 0 arousals due to isolated limb movements for an index of 0. Periodic Limb Movements The patient had 3 isolated limb movements with an index of 1.2. The patient had 0 periodic limb movements with an index of 0. Patient had a total of 3 limb movements with a total limb movement index of 1.2. Oximetry Data The patient had an average oxygen saturation of 91.2% in sleep with a minimum oxygen saturation of 81.0% and a maximum oxygen saturation of 97.0%. The patient had 167 oxygen desaturations that were 4% or greater resulting in an Oxygen Desaturation Index of 67.4.? The patient spent 26.6 minutes, 6.6% of total sleep time with an oxygen saturation below 88%. Snoring Profile Mild snoring was present intermittently throughout the study. Cardiac Profile The EKG showed normal sinus rhythm with occasional PVCs.?The patient had an average pulse rate of 78.2 bpm with a minimum pulse of rate of 63.0 bpm and a maximum pulse rate of 96.0 bpm.? EEG Profile No signs of seizure activity seen. Assessment and Plan Assessment and Plan (1) ALEXA (obstructive sleep apnea): Code(s): G47.33 - Obstructive sleep apnea (adult) (pediatric) Status: Acute Assessment and Plan: The patient had an overall AHI of 65.0 with desaturation down to 81%. This is consistent with severe sleep apnea. The patient did not achieve REM sleep during the study which likely means that the severity of his sleep apnea is underestimated. I recommend that the patient have a CPAP titration study with t he use of a hypnotic to ensure we obtain enough sleep data and find an optimal pressure setting. Data The data obtained during this sleep study is adequate for interpretation. Certification This sleep study has been reviewed by a board certified sleep medicine physician.
[2024-07-22 13:48] VITALS: BMI 42.7
== END 2024-07-03 07:01 | disposition home or self-care (01) ==
PROVIDERS: PCP Internal Medicine; Visit Provider Internal Medicine Cardiovascular Disease
DX: G47.33 Obstructive sleep apnea (adult) (pediatric) (principal)
CPT/HCPCS: 95810

== ENCOUNTER 2024-11-17 10:04 | Outpatient (CLI) | payer MEDICARE, SELFPAY ==
--- OUTSIDE RECORDS SUMMARY | 2024-11-17 11:06 | XMS_ITS | Clinical Summary ---
Author Organization [facility] Address [address] [place] [address] Care Team Providers Care Shoe Repairer Apprentice Name Role Phone Lance Green MD Primary Care Provider [phone] Source Comments [facility],non-owned Affiliates and Associated Physician Practices is amultiple site organization consisting of ambulatory clinics and hospital sitesin [place], [place], [place] and [place]. This disclosure is being madepursuant to the Care Everywhere program and may not contain all information available regarding this patient. Last updated 17.[facility] Allergies No known active allergies Medications * Be aware that medications may not be up to date on this document. Alwaysverify current medications with the patient. 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 Gender Identity Not on file Sexual Orientation [...] Description 04/27/2025 10:00 AM CDT Office Visit [facility] - Ophthalmology [address] [place] [id number] Antione Yu, OD [address] [place] [id number] Health Maintenance Due Date Last Done Comments DTAP/TDAP/TD VACCINES (1 - Tdap) 1954 PNEUMOCOCCAL VACCINE 50+ (1 of 1 - PCV) 1985 ZOSTER VACCINE (1 of 2) 1985 Respiratory Syncytial Virus (RSV) Vaccine Pt: or over 60 yrs (1 - 1-dose 75+ series) 2010 DEPRESSION SCREENING 02/06/2024 MEDICARE AWV CALENDAR YEAR 2024 COVID-19 VACCINE (2024- season) 2024 10/12/2021, 10/30/2020, 03/26/2020, Additional history exists INFLUENZA VACCINE (#1) 2024 , 11/12/2019, 11/19/2018, Additional history exists HEPATITIS B [...] this topic Medical Devices Implanted Type Area Road Mender Device Identifier Shelf Expiration Date Model / Serial / Lot Lens Iol +22.5 Ethan Hpt C Bcnvx Tecnis - [id number] Implanted:Qty: 1 on 08/15/2017 by Amador Roman MD at [facility] Left: Eye [employer] 05/14/2020 [id number] / [id number] / Lens Iol +23.5 Ethan Hpt C Bcnvx Tecnis - [id number] Implanted:Qty: 1 on 09/05/2017 by Amador Roman MD at [facility] Right: Eye [employer] 06/18/2020 [id number] / [id number] / Insurance [facility] MANAGED MEDICARE ADV SELF PAY NO INSURANCE Member Subscriber Plan / Payer (Ef fective for All Dates) Name:Edwin Hickey Member ID:Not on file Relation to Subscriber:Not on file Name:EDWIN HICKEY Subscriber ID:Not on file (Home) Address: [address] [place] [address] Payer ID:Not on file Group ID:Not on file Type:Self Pay Address: [place], [place] Advance Directives * Full Code (Latest Code Status on File) Date Activated Date Inactivated Comments 09/05/2017 8:25 AM 09/05/2017 11:33 AM * Full Code Date Activated Date Inactivated Comments 08/15/2017 2:32 PM 08/15/2017 4:02 PM * Full Code Date Activated Date Inactivated Comments 08/15/2017 12:33 PM 08/15/2017 2:32 PM Care Teams Shoe Repairer Apprentice Relationship Specialty Start Date End Date Lance Green MD [address] [place] [address] PCP - General 07/06/17
--- OUTSIDE RECORDS SUMMARY | 2024-11-17 11:06 | XMS_ITS | Clinical Summary ---
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 More than three times a week 09/24/2019 How often do you get togethe r with friends or relatives? 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 Gender Identity Not on file Sexual Orientation Not on file Obstetrics History Last Filed Vital Signs Vital Sign Reading Time Taken Comments Blood Pressure 136/68 12/19/2022 2:32 PM CONSTRUCTION OPERATIONS MANAGER Pulse 76 12/19/2022 2:32 PM CONSTRUCTION OPERATIONS MANAGER Temperature 36.6 C (97.9 F) 12/19/2022 2:32 PM CONSTRUCTION OPERATIONS MANAGER Respiratory Rate 18 12/19/2022 2:32 PM CONSTRUCTION OPERATIONS MANAGER Oxygen Saturation 96% 12/19/2022 2:32 PM CONSTRUCTION OPERATIONS MANAGER Inhaled Oxygen Concentration - - Weight 131.3 kg (289 lb 8 oz) 12/19/2022 2:32 PM CONSTRUCTION OPERATIONS MANAGER Height 172.7 cm (5' 8) 11/26/2022 11:42 [...] 11/05, 04/15/2020, Additional history exists Influenza Vaccine (#1) 2024 , 11/12/2019, 11/19/2018, Additional history exists DTaP/Tdap/Td Vaccine (2 - Td or Tdap) 09/21/2028 09/21/2018 Pneumococcal vaccine 65+ Completed 09/19/2021, 05/06 Medical Devices Implanted Type Area Sewer Connector Device Identifier Shelf Expiration Date Model / Serial / Lot [employer] Evproplus-34us Valve 34mm Aortic Evolut Pro+ - [id number] - [id number] Implanted:Qty: 1 on 09/23/2019 by Jean Pierre Snyder MD at [facility] [employer] 02/25/2021 EVPROPLUS-3 [id number] / [id number] / Procedures Procedure Name Priority Date/Time Associated Diagnosis Comments EGFR Routine 11/20/2022 4:14 AM CDT HEMOGLOBIN A1C Routine 11/19/2022 8:32 PM CDT LIPID PANEL Timed 01/22/2020 12:33 AM CONSTRUCTION OPERATIONS MANAGER from Last 3 Months or Most Recently [...] BLOOD ORDERABLES Bonnie l Result KEVIN ELIAS [id number] [facility] [place] [address] * (ABNORMAL) Hemoglobin A1c (11/19/2022 8:32 PM CDT) Hgb A1C 6.4(H) 4.0 - 5.6 % Estimated Average Glucose 137 mg/dL KEVIN ELIAS Comment: The ADA recommends reporting an estimated Average Glucose (eAG) with all Hemoglobin A1c results using the equation derived from a study of 507 normal and diabetic adults. Minority populations were underrepresented and children were not included. (Diabetes Care 31:8537-7350, 2008). The eAG is not equivalent to a fasting glucose. Blood 11/19/2022 8:32 PM CDT 11/19/2022 8:41 PM CDT us Bassem Bolton NP LAB BLOOD ORDERABLES Bonnie l Result KEVIN [address] [facility] Department [place] [address] * (ABNORMAL) Lipid panel (01/22/2020 12:33 AM CONSTRUCTION OPERATIONS MANAGER) Cholesterol 138 30 - 199 mg/dL KEVIN [...] Pediatrics 2011;128:S213 2. NCEP Expert Panel. Circulation 2003;110:227 Current Interpretive Data was last revised on [...] ELIAS Blood specimen (specimen) 01/22/2020 12:33 AM CONSTRUCTION OPERATIONS MANAGER 01/22/2020 12:51 AM CONSTRUCTION OPERATIONS MANAGER Narrative KEVIN ELIAS - 01/22/2020 1:58 AM CONSTRUCTION OPERATIONS MANAGER This lipid panel was automatically ordered due to a critical delta for Troponin- T. The dietary status of the patient at the collection time should be correlated with the lipid results. 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
--- NOTE | 2024-11-17 11:24 | WPDPFTINT ---
PFT Procedure Performed PFT Procedure Performed Spirometry with Pre/Post Bronchodilator Plethysmography (Lung Vol) Diffusing Cap (DLCO) Flow Vol Loop PFT Interpretation This is a pulmonary function test with pre and post-bronchodilator spirometry, plethysmography and diffusing capacity. The test was performed and results interpreted in accordance with the 2019 and 2005 ATS/ERS Task Force guidelines respectively using the Global Lung Function Initiative-2012 reference equations. Patient demonstrated good effort and cooperation. Reproducibility criteria were met. The quality of the pre bronchodilator spirometry maneuver was Grade B and post bronchodilator spirometry maneuver was Grade A. Findings: Spirometry: The contour of the inspiratory and expiratory flow tracing are normal. The pre bronchodilator FVC is 2.75 L, 85% predicted. The pre bronchodilator FEV1 is 2.07 L, 87% predicted. The pre bronchodilator FEV1: FVC ratio 75%. The post bronchodilator FVC is 2.60 L, representing a 5% decrease. The post bronchodilator FEV1 is 1.97 L, representing a 5% decrease. The post bronchodilator FEV1: FVC ratio 75%. Plethysmography: The total lung capacity is 6.76 L, 105% predicted. The functional residual capacity is 4.72 L, 134% predicted. The residual volume is 4.01 L, 150% predicted. The residual volume: Total lung capacity ratio is 59%. Diffusing capacity: The diffusing capacity unadjusted for hemoglobin and carboxyhemoglobin is 18.1, 88% predicted. The diffusing capacity adjusted for alveolar volume is 3.65, 104% predicted. Impression: The spirometry is normal without evidence of an obstructive abnormality. There is no significant improvement after inhaling a single dose of albuterol. The increase in residual volume to total lung volume ratio is consistent with hyperinflation. The diffusing capacity is normal. There are no prior studies for comparison
== END 2024-11-17 10:05 | disposition home or self-care (01) ==
PROVIDERS: PCP Internal Medicine; Visit Provider Nurse Practitioner Family
DX: R06.09 Other forms of dyspnea (principal)
CPT/HCPCS: 94060; 94726; 94729